=== PATIENT | male | born 1955 | race Caucasian/White ===

== ENCOUNTER → 2021-12-24 | Outpatient (CLI) | payer MEDICARE ==
--- NOTE | 2021-12-24 09:31 | ECHOF ---
Referral Reason:I35.0 nonrheumatic aortic stenosis MEASUREMENTS -------- HEIGHT: 190.5 cm WEIGHT: 90.7 kg BP: RVIDd: 2.8 cm (< 3.3) IVSd: 1.6 cm (0.6 - 1.1) LVIDd: 4.2 cm (3.9 - 5.3) LVPWd: 1.5 cm (0.6 - 1.1) IVSs: 2.1 cm LVIDs: 2.5 cm LVPWs: 2.4 cm LAESV Index (A-L): 31.87 ml/m MV EXCURSION: 25.658 mm (> 18.000) MV EF SLOPE: 52 mm/s (70 - 150) EPSS: 1.0 cm MV E Lg: 0.54 m/s MV DecT: 115 ms MV A Lg: 0.99 m/s MV E/A Ratio: 0.54 AR PHT: 390 ms RAP: 5.00 mmHg RVSP: 30.24 mmHg FINDINGS -------- Sinus rhythm. This was a technically adequate study. The left ventricular size is normal. There is moderate concentric left ventricular hypertrophy. O verall left ventricular systolic function is normal with, an EF between 55 - 60 %. The right ventricle is normal in size. LA is midly dilated 29-33ml/m2. The right atrial size is normal. Interatrial and interventricular septum intact. The aortic valve is trileaflet and appears structurally normal. There is moderate aortic regurgitat ion. There is no evidence of aortic stenosis. Mild mitral annular calcification present. Mild mitral regurgitation is present. The tricuspid valve appears structurally normal. Mild tricuspid regurgitation present. Right vent ricular systolic pressure is normal at < 35 mmHg. The right ventricular systolic pressure, as measu red by Doppler, is 30.24mmHg. Trace/mild (physiologic) pulmonic regurgitation. The aortic root and ascending aorta are dilated measuring up to (4.8- 5 ) cm. IVC Not well visulized. There is no pericardial effusion. CONCLUSIONS -------- 1. There is moderate concentric left ventricular hypertrophy. 2. Overall left ventricular systolic function is normal with, an EF between 55 - 60 %. 3. LA is midly dilated 29-33ml/m2. 4. There is moderate aortic regurgitation. 5. Mild mitral regurgitation is present. 6. Mild tricuspid regurgitation present. 7. Trace/mild (physiologic) pulmonic regurgitation. 8. The aortic root and ascending aorta are dilated measuring up to (4.8- 5 ) cm. 9. There is no pericardial effusion. SALES [employer]: Lucila Hills RDCS
== END | disposition home or self-care (01) ==
LOC: RADECHMAIN 08:20
PROVIDERS: ATTEND Internal Medicine Geriatric Medicine
DX: I08.8 Other rheumatic multiple valve diseases (principal)
CPT/HCPCS: 93306

== ENCOUNTER → 2023-10-25 | Outpatient (CLI) | payer MEDICARE ==
--- NOTE | 2023-10-26 07:13 | US ---
EXAMINATION TYPE: US kidneys/renal and bladder DATE OF EXAM: 10/25/2023 COMPARISON: CT 01/17/2015 CLINICAL INDICATION: Male, 67 years old with history of N18.30 CHRONIC KIDNEY DISEASE, STAGE 3 UNSPEC IFIED; Chronic kidney disease stage 3. Hx Right nephrectomy, hx renal cancer right kidney. EXAM MEASUREMENTS: Right Kidney: Surgically absent Left Kidney: 12.1 x 6.0 x 6.6 cm Right Kidney: Surgically absent Left Kidney: No hydronephrosis or masses seen Bladder: Appears wnl Bilateral Jets seen: Yes IMPRESSION: No significant abnormality seen.
== END | disposition home or self-care (01) ==
LOC: RADUSWWP 16:26
PROVIDERS: ATTEND Internal Medicine Geriatric Medicine
DX: N18.30 Chronic kidney disease, stage 3 unspecified (principal); Z90.5 Acquired absence of kidney; Z85.528 Personal history of other malignant neoplasm of kidney
CPT/HCPCS: 76770

== ENCOUNTER 2024-04-28 11:15 | Emergency (ER) | payer MEDICARE ==
[2024-04-28 11:23] VITALS: RESP 18
--- NOTE | 2024-04-28 11:27 | ED ---
Upper Extremity HPI - General Chief Complaint: Extremity Injury, Upper Stated Complaint: L hand finger swelling Time Seen by Provider: 04/28/24 11:27 Source: patient, RN notes reviewed Mode of arrival: ambulatory Limitations: no limitations - History of Present Illness Initial Comments: This is a 68-year-old male with a history of gout who presents the emergency department chief complaint of right hand third digit edema and pain over the last 3 days. Patient states that he went to [facility] urgent care this morning where an x-ray was completed and they informed him report to the emergency department for further evaluation. Patient denies any ajit injury to the affected finger or previous surgeries. Denies fevers, chills, nausea, vomiting, abdominal pain, weakness, fatigue. He rates his pain at a 3 out of 10, he has not taken any medications for the pain. He has used warm Epsom salt soaks at home. Denies recent antibiotic use. Patient is on allopurinol for gout, and denies recent gout flareup. - Related Data Previous Rx's Medication Instructions Recorded Doxycycline [Vibramycin] 100 mg PO BID #20 capsule 04/28/24 Allergies Allergy/AdvReac Type Severity Reaction Status Date / Time No Known Allergies Allergy Verified 04/28/24 11:17 Review of Systems ROS Statement: Those systems with pertinent positive or pertinent negative responses have been documented in the HPI. ROS Other: All systems not noted in ROS Statement are negative. Past Medical History Past Medical History: Diabetes Mellitus, Hyperlipidemia, Hypertension, Renal Disease History of Any Multi-Drug Resistant Organisms: None Reported Past Surgical History: Adenoidectomy, Heart Catheterization With Stent, Hernia Repair, Tonsillectomy Additional Past Surgical History / Comment(s): kidney removed, Past Psychological History: No Psychological Hx Reported Smoking Status: Never smoker Past Alcohol Use History: None Reported Past Drug Use History: None Reported General Exam Limitations: no limitations General appearance: alert, in no apparent distress Head exam: Present: atraumatic, normocephalic, normal inspection Eye exam: Present: normal appearance, PERRL, EOMI. Absent: scleral icterus, conjunctival injection, periorbital swelling ENT exam: Present: normal exam, mucous membranes moist Neck exam: Present: normal inspection. Absent: tenderness, meningismus, lymphadenopathy Respiratory exam: Present: normal lung sounds bilaterally. Absent: respiratory distress, wheezes, rales, rhonchi, stridor Cardiovascular Exam: Present: regular rate, normal rhythm, normal heart sounds. Absent: systolic murmur, diastolic murmur, rubs, gallop, clicks GI/Abdominal exam: Present: soft, normal bowel sounds. Absent: distended, tenderness, guarding, rebound, rigid Left Forearm Wrist exam: Present: normal inspection, full ROM. Absent: tenderness, swelling Hand Wrist exam: Present: tenderness, swelling (3rd digit). Absent: full ROM (unable to complete flexion of 3rd digit at PIP), laceration, ecchymosis, deformity, crepitus, dislocation, erythema Neuro motor exam: Present: wrist extension intact Vascular: Present: normal capillary refill, radial pulse (2+). Absent: vascular compromise Back exam: Present: normal inspection Neurological exam: Present: alert, oriented X3, CN II-XII intact Psychiatric exam: Present: normal affect, normal mood Skin exam: Present: warm, dry, intact, normal color. Absent: rash Course Vital Signs 04/28/24 04/28/24 11:18 13:00 Temperature 98 F 97.9 F Pulse Rate 69 78 Respiratory 18 18 Rate Blood Pressure 136/52 136/70 O2 Sat by Pulse 97 97 Oximetry Medical Decision Making - Medical Decision Making Was pt. sent in by a medical professional or institution (, AJIT, SPARK PLUG TESTER, urgent care, hospital, or long-term...) When possible be specific @ -Was referred by [facility] urgent care to report to the emergency department for further evaluation of x-ray findings of the left hand. Did you speak to anyone other than the patient for history (EMS, parent, family, police, friend...)? What history was obtained from this source @ -No Did you review nursing and triage notes (agree or disagree)? Why? @ -I reviewed and agree with nursing and triage notes Were old charts reviewed (outside hosp., previous admission, EMS record, old EKG, old radiological studies, urgent care reports/EKG's, long-term records)? Report findings @ -No old charts were reviewed Differential Diagnosis (chest pain, altered mental status, abdominal pain women, abdominal pain men, vaginal bleeding, weakness, fever, dyspnea, syncope, headache, dizziness, GI bleed, back pain, seizure, CVA, palpatations, mental h ealth, musculoskeletal)? @ -Cellulitis, osteomyelitis, finger sprain, fracture of metatarsal, gout, septic arthritis, osteosarcoma, this list is not all inclusive. EKG interpreted by me (3pts min.). @ -None X-rays interpreted by me (1pt min.). @ -X-ray of the left hand and left third digit reveals erosion of the distal portion of the proximal phalanx of the left middle finger. CT interpreted by me (1pt min.). @ -CT of the left hand without contrast reveals soft tissue expansile area at the distal phalanx third digit with some subtle erosion of the proximal middle phalanx. U/S interpreted by me (1pt. min.). @ -None done What testing was considered but not performed or refused? (CT, X-rays, U/S, labs)? Why? @ -Lab such as CBC, CMP and lactate were sent but deferred at this time. Patient's pain is minimal rated a 3 out of 10. Additionally there are no signs of erythema, palmar streaking or abscess noted on the finger. Minimal concern for overt osteomyelitis. Additionally labor specialist recommend that patient receives outpatient oral antibiotics for treatment and follow-up outpatient. What meds were considered but not given or refused? Why? @ -None Did you discuss the management of the patient with other professionals (professionals i.e. , PA, SPARK PLUG TESTER, lab, RT, psych nurse, manager social work, fermentation operator, teacher, chief privacy officer, family caseworker)? Give summary @ -Spoke with city call labor specialist, Dr. Handy, encouraged to the patient's findings on x-ray. It was recommended that patient undergo CT imaging of the hand in addition to started on oral antibiotics, doxycycline, and follow-up outpatient next week with orthopedic hand specialist Dr. suh for further evaluation. Was smoking cessation discussed for >3mins.? @ -No Was critical care preformed (if so, how long)? @ -No Were there social determinants of health that impacted care today? How? (Homelessness, low income, unemployed, alcoholism, drug addiction, tra nsportation, low edu. Level, literacy, decrease access to med. care, half-way, rehab)? @ -No Was there de-escalation of care discussed even if they declined (Discuss DNR or withdrawal of care, Hospice)? DNR status @ -No What co-morbidities impacted this encounter? (DM, HTN, Smoking, COPD, CAD, Cancer, CVA, ARF, Chemo, Hep., AIDS, mental health diagnosis, sleep apnea, morbid obesity)? @ -None Was patient admitted / discharged? Hospital course, mention meds given and route, prescriptions, significant lab abnormalities, going to OR and other pertinent info. @ -68-year-old male with left hand third digit edema and pain. On examination patient's third digit of the left hand noted to be edematous at the PIP, no erythema or palmar streaking. Patient's vital stable upon arrival. Unable to complete full range of motion of the third digit due to swelling. At this time patient will be sent for imaging of the left hand and left third digit for further evaluation and patient is in agreement with this plan. Patient will be discharged home on oral doxycycline and provided with orthopedic hand specialist for further evaluation. All questions answered at bedside and strict return parameters have been discussed with the patient rates verbalized understanding. Recommend that patient contacts referral on Tuesday to schedule appointment as soon as possible. Use Tylenol Motrin at home as needed for symptomatic relief. Case discussed with my attending Dr. Ruff. Undiagnosed new problem with uncertain prognosis? @ -No Drug Therapy requiring intensive monitoring for toxicity (Heparin, Nitro, Insulin, Cardizem)? @ -No Were any procedures done? @ -No Diagnosis/symptom? @ -Left hand third digit metacarpal erosion Acute, or Chronic, or Acute on Chronic? @ -Acute Uncomplicated (without systemic symptoms) or Complicated (systemic symptoms)? @ -Uncomplicated Side effects of treatment? @ -No Exacerbation, Progression, or Severe Exacerbation? @ -No Poses a threat to life or bodily function? How? (Chest pain, USA, IA, pneumonia, PE, COPD, DKA, ARF, appy, cholecystitis, CVA, Diverticulitis, Homicidal, Suicidal, threat to staff... and all critical care pts) @ -No Disposition Clinical Impression: Bone erosion determined by x-ray, Osteomyelitis Disposition: HOME SELF-CARE Condition: Good Instructions (If sedation given, give patient instructions): Osteomyelitis (ED) Additional Instructions: Return to the emergency department if your symptoms worsen or not improved. Complete full course of antibiotics as prescribed. Follow-up outpatient with orthopedic hand specialist on Tuesday or Tuesday of next week for further evaluation. Prescriptions: Doxycycline [Vibramycin] 100 mg PO BID #20 capsule Is patient prescribed a controlled substance at d/c from ED?: No Referrals: Major Sanchez MD [Primary Care Provider] - 1-2 days Crispin Suh DO [Doctor of Osteopathic Medicine] - 1-2 days
--- NOTE | 2024-04-28 12:05 | XR ---
EXAMINATION TYPE: XR finger LT DATE OF EXAM: 04/28/2024 COMPARISON: None HISTORY: Third digit swelling TECHNIQUE: 3 view left middle finger FINDINGS: Soft tissue swelling is over the proximal left digit. There is irregular erosion of the dis perfecto portion proximal phalanx left middle finger. Differential diagnosis can include osteomyelitis and neoplasm. Additional workup is recommended. IMPRESSION: 1. Erosion of the distal portion proximal phalanx left middle finger.
--- NOTE | 2024-04-28 12:07 | XR ---
EXAMINATION TYPE: XR hand complete LT DATE OF EXAM: 04/28/2024 COMPARISON: Left middle finger x-ray same date HISTORY: Pain and swelling third digit TECHNIQUE: 3 view left hand FINDINGS: Erosions of the distal portion proximal phalanx left little finger is again evident. Soft t issue swelling over the site is present. Differential diagnosis includes osteomyelitis and neoplasm. Remaining digits appear intact. More proximal portion of the hand likewise appears normal. Remaining joint spaces and mild diffuse degenerative changes. No acute fractures are identified. Remaining soft tissues appear normal. IMPRESSION: 1. Erosion distal portion proximal phalanx left middle finger. Additional workup is recommended
[2024-04-28 13:02] VITALS: BP 136/70; PULSE 78; TEMP 97.9
--- NOTE | 2024-04-28 13:05 | CT ---
EXAMINATION TYPE: CT hand LT wo con DATE OF EXAM: 04/28/2024 COMPARISON: Plain films HISTORY: LT hand, 3rd digit, swelling, xr with signs of erosion CT DLP: 170.4 mGycm Automated exposure control for dose reduction was used. Contrast: None Technique: Axial images 2 mm thick sections. Reconstructed images in the coronal and sagittal plane a re reviewed on the computer. FINDINGS: Soft tissue density is at the distal portion proximal phalanx third digit. Calcification appears to b e peripheral. This could be an expansile lesion. Some subtle erosion along the proximal portion middl e phalanx is present. Differential could include a septic arthritis. IMPRESSION: 1. SOFT TISSUE EXPANSILE AREA AT THE DISTAL PHALANX THIRD DIGIT. SOME SUBTLE EROSION OF THE PROXIMAL MIDDLE PHALANX COULD SUGGEST SEPTIC ARTHRITIS. NEOPLASM REMAINS WITHIN THE DIFFERENTIAL
== END 2024-04-28 13:21 | disposition home or self-care (01) ==
LOC: EC 11:15
DX: M86.9 Osteomyelitis, unspecified (principal); M85.842 Other specified disorders of bone density and structure, left hand
CPT/HCPCS: 99284

== ENCOUNTER → 2024-06-07 | Outpatient (CLI) | payer MEDICARE ==
--- NOTE | 2024-06-08 15:17 | PE ---
EXAMINATION TYPE: PET CT fusion whole body DATE OF EXAM: 06/07/2024 COMPARISON: CT chest abdomen pelvis 07/24/[address] available. Prior PET/CT: No recent PET/CT available for comparison. There is an old PET/CT dated 01/13/2013 HISTORY: Lymphoma, renal cell TECHNIQUE: Following the intravenous administration of 12.17 mCi of F-18 FDG, whole body images are performed from the skull base to the feet. Images are reviewed on the computer in the coronal, axial , and sagittal planes. Reconstructed rotating images are created on independent workstation and revi ewed on the computer. A localization and attenuation correction CT is performed in conjunction with the PET scan. DLP: 850.25 plus 149.29 mGycm SCAN: Subsequent Blood glucose: 197 mg/dL Average Mediastinum SUV: 3.48 Average Liver SUV: FINDINGS: Head: No suspicious uptake. NECK: No suspicious uptake. There appear to be some intense uptake symmetrically at the vocal cord l evel likely due to phonation during the examination. THORAX: There is intense uptake within the posterior right upper lung field mass. This has an SUV of 7.42. There may be some mild uptake posterior to the right main pulmonary artery, example image 125, SUV 4. 23. Lymph node may be present at this location. ABDOMEN: Liver is somewhat heterogenous. Suspicious focal mass not identified. PELVIS: There is a focal nodule with intense uptake within the mid pelvis just left of midline, image 231, SUV 5.87. Within the subcutaneous tissues posterior to the gluteal musculature there is intense uptake measuring 6.28, image 231. There is an additional small focus of mild uptake within the infer ior subcutaneous gluteal region, image 305, SUV 3.54. There is some focal uptake in the anterior lateral portion of the prostate, image 281, SUV 4.55. Cons ider additional workup of the prostate. Legs: Within the medial distal thigh just anterior to the superficial femoral artery at the obturator canal there is a focus of marked increased uptake with an SUV of 3.09. A metastatic lesion within th e musculature should be considered. This appears hypodense on the localization CT. There is some increased signal within the posterior soft tissues of the right ankle, example image 18 7, SUV 3.04 this may be related to muscular activity being somewhat elongated through the musculature . OSSEOUS STRUCTURES: Within the distal third of the left tibia above the ankle there is intense uptake within the left tibia suspicious for metastatic disease, image 187, SUV 6.64. There are some focal a reas of uptake within the talus on the left image 217, SUV 2 and posterior lateral right talus image 217, CV 1.97. This may be near background and could be related to inflammatory change. Osseous metast asis not excluded. LOCALIZATION CT: Right kidney is absent. Gallstone is present. COMPARISON: Left inguinal hernia containing mesenteric fat is present. IMPRESSION: 1. Lung mass right midlung with uptake suspicious for metastatic disease. 2. Small amount of uptake posterior to the right main pulmonary artery may be a metastatic lymph node . 3. Couple of subcutaneous tissue hyperintense nodules within the left inferior pelvis. Soft tissue me tastasis should be considered. 4. Anterior left hemipelvis soft tissue mesenteric uptake suspicious for metastasis. 5. Possible nodule within the right inferior prostate. Additional prostate workup recommended. 6. Suspected osseous metastasis distal left tibia. Possible osseous metastasis within the bilateral t alus. 7. Cholelithiasis.
== END | disposition home or self-care (01) ==
LOC: RADPETMAIN 11:35
PROVIDERS: ATTEND Orthopaedic Surgery
DX: K80.20 Calculus of gallbladder without cholecystitis without obstruction (principal); R91.8 Other nonspecific abnormal finding of lung field; Z85.528 Personal history of other malignant neoplasm of kidney; Z85.72 Personal history of non-Hodgkin lymphomas
CPT/HCPCS: 78816; A9552

== ENCOUNTER → 2024-07-23 | Outpatient (CLI) | payer MEDICARE ==
--- NOTE | 2024-07-23 13:09 | US ---
EXAMINATION TYPE: US venous doppler duplex LE LT DATE OF EXAM: 07/23/2024 12:38 PM COMPARISON: NONE CLINICAL INDICATION: Male, 68 years old with history of M79.669 PAIN IN UNSPECIFIED LOWER LEG R22.42 LLE; Patient states he has a louise filter. Patient does not take blood thinners. Pain x 1 week. SIDE PERFORMED: Left TECHNIQUE: The lower extremity deep venous system is examined utilizing real time linear array sonog karina with graded compression, doppler sonography and color-flow sonography. VESSELS IMAGED: Common Femoral Vein Deep Femoral Vein Greater Saphenous Vein * Femoral Vein Popliteal Vein Small Saphenous Vein * Proximal Calf Veins (* superficial vessels) Left Leg: *Hypoechoic area seen distal thigh: 7.0 x 3.2 x 2.4 cm. Old hematoma or solid lesion could be within the differential. Follow-up is recommended. Correlate for any prior patient neoplasm, meta stasis is not excluded. No percent evidence of DVT. IMPRESSION: 1. No deep venous thrombosis by ultrasound left lower extremity. 2. Complex hypoechoic area appears to be within the anterior left distal thigh musculature. Solid les ion or resolving hematoma within the differential. Follow-up recommended. [facility], , 07/23/2024 1:07 PM
== END | disposition home or self-care (01) ==
LOC: RADUSWWP 12:18
PROVIDERS: ATTEND Internal Medicine Hematology & Oncology
DX: C85.98 Non-Hodgkin lymphoma, unspecified, lymph nodes of multiple sites (principal); C64.9 Malignant neoplasm of unspecified kidney, except renal pelvis; C79.51 Secondary malignant neoplasm of bone; N18.9 Chronic kidney disease, unspecified; R22.42 Localized swelling, mass and lump, left lower limb

== ENCOUNTER 2024-08-16 15:37 | Inpatient (IN) | payer MEDICARE ==
[2024-08-16] MEDS: SODIUM CHLORIDE 0.9% 1,000 ML IV STA (16:34)
[2024-08-16] MEDS: SODIUM CHLORIDE 0.9% 500 ML 500 ML IV STA (16:34)
[2024-08-16 16:58] LABS: Basophils % (A) 1 %; Eosinophils # (A) 0.1 k/uL (0-0.7); Eosinophils % (A) 1 %; HCT 38.4 % (39.0-53.0); HGB 12.7 gm/dL (13.0-17.5); Lymphocytes % (A) 13 %; MCH 30.4 pg (25.0-35.0); MCV 92.3 fL (80.0-100.0); Mean Platelet Volume 8.3; Monocytes # (A) 0.3 k/uL (0-1.0); Monocytes % (A) 4 %; Neutrophils # (A) 6.2 k/uL (1.3-7.7); Neutrophils % (A) 78 %; Platelet Count 174 k/uL (150-450); RBC 4.16 m/uL (4.30-5.90); WBC 7.9 k/uL (3.8-10.6)
[2024-08-16 17:07] LABS: ALT 48 U/L (4-49); AST 114 U/L (17-59); African American GFR (CKD) 30 (>60 ml/min/1.73 sqM); Alkaline Phosphatase 68 U/L (38-126); Anion Gap 13 mmol/L; Blood Urea Nitrogen 54 mg/dL (9-20); Calcium 8.4 mg/dL (8.4-10.2); Carbon Dioxide 13 mmol/L (22-30); Chloride 115 mmol/L (98-107); Glucose 144 mg/dL (74-99); Non-African American GFR(CKD) 26 (>60 ml/min/1.73 sqM); Potassium 4.2 mmol/L (3.5-5.1); Sodium 141 mmol/L (137-145); Total Bilirubin 0.6 mg/dL (0.2-1.3); Total Protein 6.6 g/dL (6.3-8.2)
--- NOTE | 2024-08-16 18:13 | XR ---
EXAMINATION TYPE: XR chest 2V DATE OF EXAM: 08/16/2024 COMPARISON: 12/01/2012 HISTORY: 68-year-old male with fall last night, pain TECHNIQUE: AP and lateral views FINDINGS: Heart normal size. Mild hyperinflation. Some patchy lingular opacity at the left base. In addition, t here is a 4.3 cm mass at the basilar right lower lobe. IMPRESSION: 1. COPD with a 4.3 cm mass at the basilar right lower lobe. Lung cancer needs to be excluded. 2. Some patchy atelectasis versus early infiltrate at the left base. [facility], , 08/16/2024 6:11 PM
--- NOTE | 2024-08-16 18:20 | XR ---
EXAMINATION TYPE: XR pelvis AP view DATE OF EXAM: 08/16/2024 Comparison: None Clinical History: 68-year-old male with a pain after fall Findings: Osteopenia. The greater trochanter on the right is excluded from view. Mild degenerative spurring of both sites. SI joints appear symmetric and the pubic symphysis appears intact. Limited visualization of the lower left femoral neck due to external rotation of the hip. No obvious displaced fracture see n. Impression: No obvious displaced fracture though the exam is very limited as the lower left femoral neck is obscu red by rotated hip positioning and the right greater trochanter is cut off on the image. [facility], , 08/16/2024 6:17 PM
--- NOTE | 2024-08-16 18:21 | CT ---
EXAMINATION TYPE: CT brain wo con DATE OF EXAM: 08/16/2024 COMPARISON: None HISTORY: 68-year-old male weakness, ams TECHNIQUE: Examination was done in axial plane without intravenous contrast. Coronal and sagittal r econstructions performed. CT DLP: 1243.4 mGycm Automated exposure control for dose reduction was used. FINDINGS: There is no evidence of acute intracranial hemorrhage, acute ischemic changes, mass, mass-effect, or extra-axial fluid collection. There is no effacement of cerebral sulci or basal subarachnoid cister ns. There is no hydrocephalus. There is no midline shift. Brewer-white matter distinction is preserv ed. Mild generalized cerebral volume loss. Right-sided scleral banding. Paranasal sinuses and mastoid air cells are well pneumatized. IMPRESSION: Mild generalized cerebral atrophy. No acute intracranial abnormality seen. [facility], , 08/16/2024 6:19 PM
[2024-08-16] MEDS ORDERED: ONDANSETRON 4 MG/2 ML VIAL IVP PRN (20:03)
[2024-08-16] MEDS ORDERED: NALOXONE 0.4 MG/ML 1 ML VIAL IV PRN (20:03)
--- NOTE | 2024-08-16 20:06 | ED ---
General Adult HPI - General Chief complaint: Weakness Stated complaint: Abn Labs Time Seen by Provider: 08/16/24 16:00 Source: patient, family, RN/, RN notes reviewed, old records reviewed Mode of arrival: wheelchair Limitations: physical limitation - History of Present Illness Initial comments: Is a 68-year-old male who presents emergency department for weakness. Patient fell last night at approximately 9 PM. Was found this morning at approximately 9 AM. Was on the ground that entire time. When he fell he did hit his head and had a goose egg on the top of his head. Presents with his sister after presenting to his oncologist over concern for rhabdomyolysis as well as WU on CKD. Patient has a history of lymphoma as well as renal cancer. He has only 1 kidney after nephrectomy. Received chemo 2 weeks ago. States he lost his balance which caused him to fall. Denies any chest pain, shortness of breath, abdominal pain. Endorses some mild pain on the top of his head. Unknown if he lost consciousness when he fell. Is not on blood thinners. Denies any other obvious injuries. Presents for further evaluation at this time. Did receive a 1 L fluid bolus at his oncology office prior to presentation. - Related Data Home Medications Medication Instructions Recorded Confirmed Atorvastatin [Lipitor] 40 mg PO DAILY 08/16/24 08/16/24 Carboxymethylcellulose Sodium 1 drop BOTH EYES Q2H PRN 08/16/24 08/16/24 [Refresh Tears] Cetirizine HCl [Zyrtec] 10 mg PO DAILY PRN 08/16/24 08/16/24 Dapagliflozin Propanediol [Farxiga] 10 mg PO DAILY 08/16/24 08/16/24 Fenofibrate Nanocrystallized 145 mg PO DAILY 08/16/24 08/16/24 [Fenofibrate] Furosemide [Lasix] 40 mg PO WE 08/16/24 08/16/24 Insulin Glargine,Hum.rec.anlog 35 units SQ DAILY 08/16/24 08/16/24 [Tousebastian Solostar] Latanoprost [Latanoprost 0.005%] 1 drop LEFT EYE HS 08/16/24 08/16/24 Repaglinide [Prandin] 1 mg PO AC-BRKFST 08/16/24 08/16/24 allopurinoL [Zyloprim] 100 mg PO DAILY 08/16/24 08/16/24 amLODIPine BESYLATE/BENAZEPRIL 1 cap PO DAILY 08/16/24 08/16/24 [Lotrel 10-40 mg Capsule] Allergies Allergy/AdvReac Type Severity Reaction Status Date / Time No Known Allergies Allergy Verified 08/16/24 16:49 Review of Systems ROS Statement: Those systems with pertinent positive or pertinent negative responses have been documented in the HPI. Review of Systems: CONST: Denies fever EYES: Denies blurry vision ENT: Denies nasal congestion C/V: Denies Chest pain RESP: Denies shortness of breath GI: Denies abdominal pain : Denies dysuria SKIN: Denies rash. MSK: Denies joint pain. NEURO: Denies headache ROS Other: All systems not noted in ROS Statement are negative. Past Medical History Past Medical History: Cancer, Diabetes Mellitus, Hyperlipidemia, Hypertension, Renal Disease Additional Past Medical History / Comment(s): renal cell carcinoma History of Any Multi-Drug Resistant Organisms: None Reported Past Surgical History: Adenoidectomy, Heart Catheterization With Stent, Hernia Repair, Tonsillectomy Additional Past Surgical History / Comment(s): kidney removed, Past Psychological History: No Psychological Hx Reported Smoking Status: Never smoker Past Alcohol Use History: None Reported Past Drug Use History: None Reported General Exam - General Exam Comments Initial Comments: General: Appears in no acute distress. HEAD: Negative Abdi sign. Negative raccoon eyes. Patient does have a healing hematoma on the superior aspect of his head. EYES: PERRLA, EOMI, conjunctiva normal, no discharge. 3 mm and equal bilaterally. ENT: Hearing grossly intact, normal oropharynx. RESPIRATORY: Clear breath sounds bilaterally. No wheezes, rales, or rhonchi. C/V: Regular rate and rhythm. S1 and S2 auscultated, no edema, peripheral pulses 2+ and intact throughout ABD: Abd is soft, nontender, nondistended EXT: Normal range of motion, no obvious deformity pelvis stable. No tenderness to palpation of the extremities. Cervical, thoracic, lumbar spine tenderness to palpation. SKIN: No rashes or lesions observed on exposed skin. NEURO: Alert and oriented x 4. Cranial nerves II-XII intact. No focal sensory or strength deficits. He has a 15. Limitations: physical limitation Course Vital Signs 08/16/24 08/16/24 15:41 20:36 Temperature 97.6 F 101.7 F H Pulse Rate 84 Respiratory 18 Rate Blood Pressure 107/49 O2 Sat by Pulse 98 Oximetry Medical Decision Making - Medical Decision Making Was pt. sent in by a medical professional or institution ([facility], [facility]CH[facility], urgent care, hospital, or long term...) When possible be specific @ -Sent by oncology office for admission, PT evaluation, treatment for rhabdomyolysis Did you speak to anyone other than the patient for history (EMS, parent, family, police, friend...)? What history was obtained from this source @ -Patient's sister is at bedside and assist with patient's past medical history. Did you review nursing and triage notes (agree or disagree)? Why? @ -I reviewed and agree with nursing and triage notes Were old charts reviewed (outside hosp., previous admission, EMS record, old EKG, old radiological studies, urgent care reports/EKG's, long term records)? Report findings @ -Laboratory studies obtained from earlier today at the oncology office which showed the creatinine kinase above 5000. Differential Diagnosis (chest pain, altered mental status, abdominal pain women, abdominal pain men, vaginal bleeding, weakness, fever, dyspnea, syncope, headache, dizziness, GI bleed, back pain, seizure, CVA, palpatations, mental health, musculoskeletal)? @ -Rhabdomyolysis, WU, UTI, weakness. This is is not all inclusive. EKG interpreted by me (3pts min.). @ -As above X-rays interpreted by me (1pt min.). @ -X-ray showed no obvious acute cardiopulmonary process. Pelvis x-ray shows no obvious acute process. Chest x-ray does show the known right lower lobe pulmonary mass. Patient has findings suggestive of atelectasis at the bases. CT interpreted by me (1pt min.). @ -CT brain revealed no obvious acute intracranial process or injury. U/S interpreted by me (1pt. min.). @ -None done What testing was considered but not performed or refused? (CT, X-rays, U/S, labs)? Why? @ -None What meds were considered but not given or refused? Why? @ -None Did you discuss the management of the patient with other professionals (professionals i.e. AJIT Varela, NAILHEAD P[employer]CHER, lab, RT, psych nurse, social media marketing specialist, inspector fuel hose, teacher, cash management officer, case packer and sealer)? Give summary @ -I spoke with the admitting provider, Dr. Sanchez who accepted the admission. Was smoking cessation discussed for >3mins.? @ -No Was critical care preformed (if so, how long)? @ -No Were there social determinants of health that impacted care today? How? (Homelessness, low income, unemployed, alcoholism, drug addiction, trans portation, low edu. Level, literacy, decrease access to med. care, [facility], rehab)? @ -No Was there de-escalation of care discussed even if they declined (Discuss DNR or withdrawal of care, Hospice)? DNR status @ -No What co-morbidities impacted this encounter? (DM, HTN, Smoking, COPD, CAD, Cancer, CVA, ARF, Chemo, Hep., AIDS, mental health diagnosis, sleep apnea, morbid obesity)? @ -Renal carcinoma, lymphoma Was patient admitted / discharged? Hospital course, mention meds given and route, prescriptions, significant lab abnormalities, going to OR and other pertinent info. @ -Patient presents emergency department for rhabdomyolysis and dehydration with WU. We will obtain CT brain as this is the only evidence of injury in addition to chest x-ray and pelvis x-ray and basic labs. Creatinine kinase was already obtained was elevated over 5000. Will repeat labs to check on kidney function and obtain the imaging. Patient already received a 1 L fluid bolus and will receive an additional 500 cc fluid bolus. Patient will then be placed on maintenance fluids at 130 an hour. He was in agreement this plan. Vitals are within acceptable limits. EKG showed no signs of acute ischemia. Imaging all negative for any acute process. Laboratory studies remain concerning for WU on CKD. I updated the patient. He will be admitted at this time. He was in agreement this plan. I spoke with the admitting provider, Dr. Sanchez who accepted the admission. Nephrology as well as oncology consulted. Physical therapy consulted. Undiagnosed new problem with uncertain prognosis? @ -No Drug Therapy requiring intensive monitoring for toxicity (Heparin, Nitro, Insulin, Cardizem)? @ -No Were any procedures done? @ -No Diagnosis/symptom? @ -Rhabdomyolysis, WU Acute, or Chronic, or Acute on Chronic? @ -Acute Uncomplicated (without systemic symptoms) or Complicated (systemic symptoms)? @ -Complicated Side effects of treatment? @ -No Exacerbation, Progression, or Severe Exacerbation? @ -No Poses a threat to life or bodily function? How? (Chest pain, [place], [place], pneumonia, PE, COPD, DKA, ARF, appy, cholecystitis, CVA, Diverticulitis, Homicidal, Suicidal, threat to staff... and all critical care pts) @ -Yes - Lab Data Result diagrams: 08/16/24 16:33 08/16/24 16:33 Lab Results 08/16/24 08/16/24 Range/Units 16:33 16:33 WBC 7.9 (3.8-10.6) k/uL RBC 4.16 L (4.30-5.90) m/uL Hgb 12.7 L (13.0-17.5) gm/dL Hct 38.4 L (39.0-53.0) % MCV 92.3 (80.0-100.0) fL MCH 30.4 (25.0-35.0) pg MCHC 33.0 (31.0-37.0) g/dL RDW 15.0 (11.5-15.5) % Plt Count 174 (150-450) k/uL MPV 8.3 Neutrophils % 78 % Lymphocytes % 13 % Monocytes % 4 % Eosinophils % 1 % Basophils % 1 % Neutrophils # 6.2 (1.3-7.7) k/uL Lymphocytes # 1.0 (1.0-4.8) k/uL Monocytes # 0.3 (0-1.0) k/uL Eosinophils # 0.1 (0-0.7) k/uL Basophils # 0.0 (0-0.2) k/uL Sodium 141 (137-145) mmol/L Potassium 4.2 (3.5-5.1) mmol/L Chloride 115 H (98-107) mmol/L Carbon Dioxide 13 L (22-30) mmol/L Anion Gap 13 mmol/L BUN 54 H (9-20) mg/dL Creatinine 2.45 H (0.66-1.25) mg/dL Est GFR (CKD-EPI)AfAm 30 (>60 ml/min/1.73 sqM) Est GFR (CKD-EPI)NonAf 26 (>60 ml/min/1.73 sqM) Glucose 144 H (74-99) mg/dL Calcium 8.4 (8.4-10.2) mg/dL Total Bilirubin 0.6 (0.2-1.3) mg/dL AST 114 H (17-59) U/L ALT 48 (4-49) U/L Alkaline Phosphatase 68 (38-126) U/L Total Protein 6.6 (6.3-8.2) g/dL Albumin 4.0 (3.5-5.0) g/dL - EKG Data -: EKG Interpreted by Me EKG Comments: 12-lead Electrocardiogram Interpretation Note EKG was reviewed and interpreted by myself. 12-lead ECG performed at 1629 is interpreted by me as revealing normal sinus rhythm at a rate of 90 beats per minute. [place] is normal. TN interval is 194 ms, QRS duration is 98 ms, QTc is 429 ms.. There were no ST or T wave abnormalities to suggest myocardial ischemia or injury. R wave progression across the precordium was satisfactory. By my interpretation this EKG is non-diagnostic for acute ischemia. Disposition Clinical Impression: Rhabdomyolysis, WU (acute kidney injury) Disposition: ADMITTED IP TO THIS HOSP Condition: Stable Time of Disposition: 20:00
[2024-08-16 20:25] LABS: Glucose,Whole Blood 161 mg/dL (70-110)
[2024-08-16] MEDS: ACETAMINOPHEN TAB 325 MG TAB PO PRN (20:44)
[2024-08-16] MEDS ORDERED: ARTIFICIAL TEARS-HYPROMELLOSE DROPS 15 ML BTL BOTH EYES PRN (20:46)
[2024-08-16] MEDS ORDERED: LORATADINE 10 MG TAB PO PRN (20:46)
[2024-08-16 20:47] LABS: Appearance,Urine Clear (Clear); Bacteria,Urine Rare /hpf; Bilirubin,Urine Negative (Negative); Blood,Urine Moderate (Negative); Color,Urine Light Yellow; Glucose,Urine (UA) 4+ (Negative); Ketones,Urine Negative (Negative); Leukocyte Esterase,Urine Negative (Negative); Nitrite,Urine Negative (Negative); PH, Urine 5.5 (5.0-8.0); Protein,Urine 1+ (Negative); RBC,Urine <1 /hpf (0-5); Urobilinogen,Urine <2.0 mg/dL (<2.0); WBC,Urine <1 /hpf (0-5)
[2024-08-16] MEDS: ATORVASTATIN 40 MG TAB PO SCH (22:41)
[2024-08-16] MEDS: LATANOPROST 0.005% OPHTH DROPS 2.5 ML BTL LEFT EYE SCH (22:41)
[2024-08-17] MEDS: DEXTROSE 5% IN WATER 1,000 ML with SODIUM BICARB (1 MEQ/ML) 150 ML IV SCH (04:06)
[2024-08-17 07:05] LABS: Glucose,Whole Blood 199 mg/dL (70-110)
[2024-08-17] MEDS: REPAGLINIDE 1 MG TAB PO SCH (08:48)
[2024-08-17] MEDS: INSULIN DETEMIR (LEVEMIR) 100 UNIT/ML SYR SQ SCH (08:48)
[2024-08-17] MEDS: FENOFIBRATE 160 MG TAB PO SCH (08:48)
[2024-08-17] MEDS: allopurinoL 100 MG TAB PO SCH (08:48)
[2024-08-17] MEDS: amLODIPine 10 MG TAB PO SCH (08:49)
[2024-08-17 08:55] LABS: ALT 55 U/L (10-49); AST 98 U/L (14-35); Albumin 3.5 g/dL (3.8-4.9); Alkaline Phosphatase 60 U/L (41-126); BUN/Creat Ratio 20.04 Ratio (12.00-20.00); Blood Urea Nitrogen 46.1 mg/dL (9.0-27.0); Calcium 7.3 mg/dL (8.7-10.3); Chloride 113 mmol/L (96-109); Globulin 2.5 g/dL (1.6-3.3); Glucose 186 mg/dL (70-110); Potassium 4.1 mmol/L (3.5-5.5); Sodium 141 mmol/L (135-145); Total Bilirubin 0.3 mg/dL (0.3-1.2)
[2024-08-17] MEDS ORDERED: DAPAGLIFLOZIN PROPANEDIOL 10 MG TABLET PO SCH (09:00)
[2024-08-17 10:13] LABS: Basophils # (A) 0.05 X 10*3/uL (0.00-0.10); Basophils % (A) 0.7 %; Eosinophils # (A) 0.08 X 10*3/uL (0.04-0.35); Eosinophils % (A) 1.2 %; HGB 11.4 g/dL (13.0-17.0); Lymphocytes # (A) 0.89 X 10*3/uL (0.90-5.00); Lymphocytes % (A) 12.9 %; MCH 30.2 pg (27.0-32.0); MCHC 31.7 g/dL (32.0-37.0); MCV 95.2 FL (80.0-97.0); Mean Platelet Volume 11.1 FL (9.5-12.2); Monocytes # (A) 0.43 X 10*3/uL (0.20-1.00); Monocytes % (A) 6.3 %; NRBC Per 100 WBC 0 X 10*3/uL (0.00-0.01); Neutrophils # (A) 5.38 X 10*3/uL (1.80-7.70); Neutrophils % (A) 78.2 %; Platelet Count 137 X 10*3/uL (140-440); RBC 3.78 X 10*6/uL (4.40-5.60); RBC Morphology Normal (Normal); RDW 15.6 % (11.5-14.5); WBC 6.88 X 10*3/uL (4.50-10.00)
--- NOTE | 2024-08-17 10:55 | P.NPCON ---
History of Present Illness - Reason for Consult acute renal failure, chronic renal failure - History of Present Illness Reason for consultation: Acute kidney injury on chronic kidney disease History of present illness: Patient is a 68-year-old male seen in renal consultation for acute kidney injury on chronic kidney disease. Patient has chronic kidney disease stage IIIb/IV with creatinine 2.4 in July 2024. Patient has solitary left kidney. Patient has history of right nephrectomy due to malignancy. Creatinine this admission was 2.5 and is 2.3 today. Patient came to the hospital after he jameson stained a fall at home. Patient states his legs just gave out and he fell. He is not sure if he lost consciousness or not. Patient states he was down for 12 hours when he was found by family member the next morning. CK level was 5250 dated August 16, 2024. Morning CK level is pending. He is currently maintained on bicarb drip running at 130 cc an hour. Patient does have history of diabetes. Also has history of lung cancer. Denies history of coronary artery disease. Denies use of nonsteroidals. Denies gross hematuria or dysuria. Diuretics are held. Bladder scan this morning showed over 700 cc of urine and a Bautista catheter will be placed. Vital signs are stable. General: No acute distress. HEENT: Head exam is unremarkable. LUNGS: No audible rhonchi or wheezes. HEART: Rate and Rhythm are regular. ABDOMEN: Nontender. EXTREMITITES: No edema. Past Medical History Past Medical History: Cancer, Diabetes Mellitus, Deep Vein Thrombosis (DVT), Hyperlipidemia, Hypertension, Renal Disease Additional Past Medical History / Comment(s): renal cell carcinoma, DVT in right leg r/t chemo, has louise filter History of Any Multi-Drug Resistant Organisms: None Reported Past Surgical History: Adenoidectomy, Hernia Repair, Tonsillectomy Additional Past Surgical History / Comment(s): cancerous kidney removed [facility] 2014 Past Anesthesia/Blood Transfusion Reactions: No Reported Reaction Past Psychological History: No Psychological Hx Reported Smoking Status: Never smoker Past Alcohol Use History: None Reported Past Drug Use History: None Reported Medications and Allergies Home Medications Medication Instructions Recorded Confirmed Type Atorvastatin [Lipitor] 40 mg PO DAILY 08/16/24 08/16/24 History Carboxymethylcellulose Sodium 1 drop BOTH EYES Q2H PRN 08/16/24 08/16/24 History [Refresh Tears] Cetirizine HCl [Zyrtec] 10 mg PO DAILY PRN 08/16/24 08/16/24 History Dapagliflozin Propanediol [Farxiga] 10 mg PO DAILY 08/16/24 08/16/24 History Fenofibrate Nanocrystallized 145 mg PO DAILY 08/16/24 08/16/24 History [Fenofibrate] Furosemide [Lasix] 40 mg PO WE 08/16/24 08/16/24 History Insulin Glargine,Hum.rec.anlog 35 units SQ DAILY 08/16/24 08/16/24 History [Toujeo Solostar] Latanoprost [Latanoprost 0.005%] 1 drop LEFT EYE HS 08/16/24 08/16/24 History Repaglinide [Prandin] 1 mg PO AC-BRKFST 08/16/24 08/16/24 History allopurinoL [Zyloprim] 100 mg PO DAILY 08/16/24 08/16/24 History amLODIPine BESYLATE/BENAZEPRIL 1 cap PO DAILY 08/16/24 08/16/24 History [Lotrel 10-40 mg Capsule] Allergies Allergy/AdvReac Type Severity Reaction Status Date / Time No Known Allergies Allergy Verified 08/16/24 16:49 Physical Exam Vitals: Vital Signs Temp Pulse Pulse Pulse Resp BP BP 08/17/24 07:06 98.4 F 94 20 149/56 08/17/24 01:35 98 F 104 H 16 162/56 08/16/24 21:57 97.7 F 83 16 144/65 08/16/24 21:07 91 18 141/82 08/16/24 20:41 91 18 141/52 08/16/24 20:36 101.7 F H 08/16/24 15:41 97.6 F 84 18 107/49 Pulse Ox 08/17/24 07:06 95 08/17/24 01:35 94 L 08/16/24 21:57 91 L 08/16/24 21:07 97 08/16/24 20:41 96 08/16/24 20:36 08/16/24 15:41 98 Intake and Output 08/16/24 08/17/24 08/17/24 22:59 06:59 14:59 Output Total 400 Balance -400 Output: Urine 400 Other: # Voids 2 Weight 102.058 kg Results - Lab Results Most recent lab results Calcium 7.3 mg/dL (8.7-10.3) L 08/17/24 04:40 08/17/24 04:40 08/17/24 04:40 Assessment and Plan Plan: Assessment: 1. Acute kidney injury secondary to ATN secondary to rhabdomyolysis and urinary retention. Creatinine was 2.5 on admission and is 2.3 today. 2. Chronic kidney disease stage IIIb/IV with creatinine 2.4 in July 2024. Etiology is solitary kidney and nephrosclerosis. 3. Status post right nephrectomy. 4. Rhabdomyolysis secondary to fall and immobility. 5. Diabetes mellitus. 6. Lung malignancy maintained on chemotherapy outpatient. Also concern for metastatic disease based on PET scan done June 07, 2024. Oncology consulted. 7. Metabolic acidosis secondary to acute kidney injury and IV fluids. 8. Urinary retention. Plan: Maintain bicarb drip. Insert Bautista catheter. Add Flomax. Check renal ultrasound. Follow-up CK level. Avoid nephrotoxins. Continue to monitor renal function and urine output. Thank you for the consultation. I will continue to follow the patient with you during his hospital stay.
[2024-08-17] MEDS: TAMSULOSIN 0.4 MG CAP.ER.24H PO SCH (12:00)
[2024-08-17 12:09] LABS: Glucose,Whole Blood 234 mg/dL (70-110)
--- NOTE | 2024-08-17 13:11 | US ---
EXAMINATION TYPE: US kidneys/renal and bladder DATE OF EXAM: 08/17/2024 COMPARISON: US 2022 CLINICAL INDICATION: Male, 68 years old with history of jose antonio; TECHNIQUE: Grayscale and color Doppler imaging of the bilateral kidneys and urinary bladder: FINDINGS: EXAM MEASUREMENTS: Left Kidney: 11.7 x 6.2 x 5.0 cm Right Kidney: surgically absent Left Kidney: No hydronephrosis or masses seen Bladder: not distended, stevenson catheter There is no evidence for hydronephrosis at this point in time. No nephrolithiasis is seen. No severiano s are identified. The urinary bladder is anechoic. Bilateral ureteral jets are seen. IMPRESSION: Right-sided nephrectomy change. [facility], , 08/17/2024 1:09 PM
[2024-08-17] MEDS: INSULIN ASPART (NovoLOG) 100 UNIT/ML VIAL SQ SCH (13:16)
[2024-08-17 17:34] LABS: Glucose,Whole Blood 142 mg/dL (70-110)
--- NOTE | 2024-08-17 19:08 | P.HPIM ---
History of Present Illness H&P Date: 08/16/24 HISTORY OF PRESENT ILLNESS: 68-year-old with active medical history of type 2 diabetes, previous history of coagulopathy with deep venous thrombosis and pulmonary embolism, multiple cancer including skin cancer, lymphoma, and right-sided renal cell carcinoma postresection who also known to have stage III chronic kidney disease have chronic arthralgia, chronic neuropathy, history of gout and hyperlipidemia who also has history of arrhythmia. He was seen and evaluated few months ago for left middle finger growth initially looks like this is a form like gout and that being sent to see Dr. Palma hand specialist who apparently did further more testing and determined this is probably metastatic cancer from most likely the kidney ended up sending patient to see Ortho oncology arrangement for PET scan was done and found finding consistent with metastasis to the right middle lobe along with the left tibia and left middle finger was diagnosed as an advanced stage metastatic renal cell carcinoma the patient is dealing with the consequences and complication of his advanced cancer has been seen oncology and start chemotherapy. The patient has been quite weak and tired he also had multi medical problem he does not drive because they are to be legally blind, has been having more trouble with balance and gait. Apparently his sister will check on him a regular basis found him on the floor of his bathroom after he fell without remembering what happened exactly and was on the floor for over 10 hours she called EMS to help her out to put him in her car and drove him to his oncologist office where was seen and evaluated laboratory tests were done determined he is to be on more kidney failure than expected was sent to the emergency department at the point where was seen his CK was 3673 kidney function is much worse with GFR down to 26. Patient was started on hydration Admit to the hospital will consult nephrology. Testing including CAT scan of the brain was performed which shows mild generalized cerebral atrophy with no acute intracranial hemorrhage, pelvic x-ray showed no obvious displaced fracture through the exam very limited as a lower femoral neck is obscured by rotated hip position and the right greater trochanteric is cut off of the image. Also chest x-ray showed COPD with 4.3 cm mass at the basilar of the right lower lobe which spotted from before with his metastatic renal cell CA. Patient still slightly bit confused and not acting himself still not feeling well not able to ambulate walk or put any pressure REVIEW OF SYSTEMS: CONSTITUTIONAL: Well-developed slightly confused no acute respiratory distress. EYES: No icterus sclerae, no conjunctivitis. EARS, NOSE, MOUTH, THROAT, and FACE: No sore throat, lymphadenopathy, carotid bruits or deformity. RESPIRATORY: Mild shortness of breath CARDIOVASCULAR: No CP, slight palpitation no angina. GASTROINTESTINAL: No Abd pain, nausea no vomiting no diarrhea slight constipation no active GI bleed at this point. GENITOURINARY: Negative for Hematuria or UTI, no kidney stones. Renal cell CA with metastasis no kidney stones or hematuria. INTEGUMENT/BREAST: Generalized arthralgia with muscle and joint pain and mostly problem with the left middle finger and left medial aspect of the tibia on the left side. HEMATOLOGIC/LYMPHATIC: Chronic anemia. MUSCULOSKELTAL: Generalized arthralgia and myalgia NEURLOGICAL: Slight altered mental status with? Of dizziness lightheadedness and fatigue with no motor deficit. BEHAVIORAL/PSYCH: Negative. ENDOCRINE: Negative. PHYSICAL EXAMINATION: General Appearance: Alert, cooperative, no distress, appears stated age. Neck HEENT: Supple, no lymphadenopathy, no thyroid enlargement, no carotid bruits. Lungs: Decreased breath sound bilaterally with fine rhonchi positive expiratory wheezes no crackles. Slight discomfort on the chest wall area. Slight discomfort in the chest wall area. Heart: Regular rate and rhythm, S1, S2 normal, no murmur, rub or gallop. Back: Slight discomfort lumbar spine no sign of bruise. Abdomen: Soft positive bowel sound no organomegaly slight discomfort in the mid lower abdominal region area no rebound or rigidity. Extremities: Left middle finger still have significant swelling as a fusiform also has slight swelling on the medial aspect of the left tibia trace edema with generalized arthralgia. Pulses: 2+ and symmetric. Skin: Skin color, scar tissue of skin cancer in the facial area. Neurologic: Alert oriented with slight confusion cranial nerves II through XII intact, positive generalized weakness positive normal balance and gait. ASSESSMENT AND PLAN: _Acute rhabdomyolysis: Affecting his kidney function causing more acute kidney injury continue hydration watch his symptoms carefully nephrology consultation be done. _Acute kidney injury with creatinine up to 2.3 GFR down to 30 with stage IIIb chronic kidney disease continue hydration watch kidney function carefully. _Stage IV kidney cancer with metastasis has been seen oncology on chemotherapy which will consult oncology at this point hold chemotherapy temporary till he is hydrated and rhabdomyolysis clear. _Chronic kidney disease with stage III AAA has been much worse with his rhabdomyolysis at this point. _Type 2 diabetes: Remain on Prandin 1 mg twice a day, Farxiga 10 mg daily, Toujeo 35 units daily continue Accu-Chek sliding scales coverage will watch symptoms carefully. _Hypertension: Remain on amlodipine/benazepril 10/40 mg a day will titrate dose and add probably smaller dose of hydralazine if needed. _Hyperlipidemia: Remain on atorvastatin 40 mg a day continue medication. _Chronic edema with mild chronic diastolic heart failure, has been on benazepril and furosemide. _Previous history of lymphoma postchemotherapy has been in remission._ _BPH: Watch for any urinary retention started on Flomax. _GI prophylaxis: Patient will be on pantoprazole 40 mg daily. _DVT prophylaxis: Patient can benefit from remain on Lovenox 40 mg daily. CODE STATUS: Full code. Admit patient to the inpatient service for more than 2 night stay. Past Medical History Past Medical History: Cancer, Diabetes Mellitus, Deep Vein Thrombosis (DVT), Hyperlipidemia, Hypertension, Renal Disease Additional Past Medical History / Comment(s): renal cell carcinoma, DVT in right leg r/t chemo, has louise filter History of Any Multi-Drug Resistant Organisms: None Reported Past Surgical History: Adenoidectomy, Hernia Repair, Tonsillectomy Additional Past Surgical History / Comment(s): cancerous kidney removed appox 2014 Past Anesthesia/Blood Transfusion Reactions: No Reported Reaction Past Psychological History: No Psychological Hx Reported Smoking Status: Never smoker Past Alcohol Use History: None Reported Past Drug Use History: None Reported Medications and Allergies Home Medications Medication Instructions Recorded Confirmed Type Atorvastatin [Lipitor] 40 mg PO DAILY 08/16/24 08/16/24 History Carboxymethylcellulose Sodium 1 drop BOTH EYES Q2H PRN 08/16/24 08/16/24 History [Refresh Tears] Cetirizine HCl [Zyrtec] 10 mg PO DAILY PRN 08/16/24 08/16/24 History Dapagliflozin Propanediol [Farxiga] 10 mg PO DAILY 08/16/24 08/16/24 History Fenofibrate Nanocrystallized 145 mg PO DAILY 08/16/24 08/16/24 History [Fenofibrate] Furosemide [Lasix] 40 mg PO WE 08/16/24 08/16/24 History Insulin Glargine,Hum.rec.anlog 35 units SQ DAILY 08/16/24 08/16/24 History [Toujeo Solostar] Latanoprost [Latanoprost 0.005%] 1 drop LEFT EYE HS 08/16/24 08/16/24 History Repaglinide [Prandin] 1 mg PO AC-BRKFST 08/16/24 08/16/24 History allopurinoL [Zyloprim] 100 mg PO DAILY 08/16/24 08/16/24 History amLODIPine BESYLATE/BENAZEPRIL 1 cap PO DAILY 08/16/24 08/16/24 History [Lotrel 10-40 mg Capsule] Allergies Allergy/AdvReac Type Severity Reaction Status Date / Time No Known Allergies Allergy Verified 08/16/24 16:49 Physical Exam Vitals: Vital Signs Temp Pulse Pulse Resp BP BP Pulse Ox 08/16/24 21:57 97.7 F 83 16 144/65 91 L 08/16/24 21:07 91 18 141/82 97 08/16/24 20:41 91 18 141/52 96 08/16/24 20:36 101.7 F H 08/16/24 15:41 97.6 F 84 18 107/49 98 Intake and Output 08/16/24 08/16/24 08/16/24 06:59 14:59 22:59 Other: Weight 102.058 kg Results CBC & Chem 7: 08/17/24 04:40 08/17/24 04:40 Labs: Abnormal Lab Results - Last 24 Hours (Table) 08/16/24 08/16/24 08/16/24 Range/Units 16:33 16:33 19:48 RBC 4.16 L (4.30-5.90) m/uL Hgb 12.7 L (13.0-17.5) gm/dL Hct 38.4 L (39.0-53.0) % Chloride 115 H (98-107) mmol/L Carbon Dioxide 13 L (22-30) mmol/L BUN 54 H (9-20) mg/dL Creatinine 2.45 H (0.66-1.25) mg/dL Glucose 144 H (74-99) mg/dL POC Glucose (mg/dL) (70-110) mg/dL AST 114 H (17-59) U/L Urine Protein 1+ H (Negative) Urine Glucose (UA) 4+ H (Negative) Urine Blood Moderate H (Negative) Urine Bacteria Rare H (None) /hpf 08/16/24 Range/Units 20:24 RBC (4.30-5.90) m/uL Hgb (13.0-17.5) gm/dL Hct (39.0-53.0) % Chloride (98-107) mmol/L Carbon Dioxide (22-30) mmol/L BUN (9-20) mg/dL Creatinine (0.66-1.25) mg/dL Glucose (74-99) mg/dL POC Glucose (mg/dL) 161 H (70-110) mg/dL AST (17-59) U/L Urine Protein (Negative) Urine Glucose (UA) (Negative) Urine Blood (Negative) Urine Bacteria (None) /hpf Thrombosis Risk Factor Assmnt - Choose All That Apply Any of the Below Risk Factors Present?: Yes Each Factor Represents 1 point: Medical pt on bed rest, Obesity (BMI >25), Swollen legs (current) Other Risk Factors: Yes Each Risk Factor Represents 2 Points: Age 61-74 years Each Risk Factor Represents 3 Points: History of DVT/PE Thrombosis Risk Factor Assessment Total Risk Factor Score: 8 Thrombosis Risk Factor Assessment Level: High Risk
[2024-08-17 20:16] LABS: Glucose,Whole Blood 139 mg/dL (70-110)
[2024-08-17] MEDS: NYSTATIN 100,000 UNIT/GM POWD 15 GM TOPICAL SCH (21:23)
[2024-08-17] MEDS ORDERED: hydrALAZINE HCL 25 MG TAB PO PRN (21:31)
--- NOTE | 2024-08-17 21:33 | P.PN ---
Subjective Progress Note Date: 08/17/24 HISTORY OF PRESENT ILLNESS: 68-year-old with active medical history of type 2 diabetes, previous history of coagulopathy with deep venous thrombosis and pulmonary embolism, multiple cancer including skin cancer, lymphoma, and right-sided renal cell carcinoma postresection who also known to have stage III chronic kidney disease have chronic arthralgia, chronic neuropathy, history of gout and hyperlipidemia who also has history of arrhythmia. He was seen and evaluated few months ago for left middle finger growth initially looks like this is a form like gout and that being sent to see Dr. Palma hand specialist who apparently did further more testing and determined this is probably metastatic cancer from most likely the kidney ended up sending patient to see Ortho oncology arrangement for PET scan was done and found finding consistent with metastasis to the right middle lobe along with the left tibia and left middle finger was diagnosed as an advanced stage metastatic renal cell carcinoma the patient is dealing with the consequences and complication of his advanced cancer has been seen oncology and start chemotherapy. The patient has been quite weak and tired he also had multi medical problem he does not drive because they are to be legally blind, has been having more trouble with balance and gait. Apparently his sister will check on him a regular basis found him on the floor of his bathroom after he fell without remembering what happened exactly and was on the floor for over 10 hours she called EMS to help her out to put him in her car and drove him to his oncologist office where was seen and evaluated laboratory tests were done determined he is to be on more kidney failure than expected was sent to the emergency department at the point where was seen his CK was 3673 kidney function is much worse with GFR down to 26. Patient was started on hydration Admit to the hospital will consult nephrology. Testing including CAT scan of the brain was performed which shows mild generalized cerebral atrophy with no acute intracranial hemorrhage, pelvic x-ray showed no obvious displaced fracture through the exam very limited as a lower femoral neck is obscured by rotated hip position and the right greater trochanteric is cut off of the image. Also chest x-ray showed COPD with 4.3 cm mass at the basilar of the right lower lobe which spotted from before w ith his metastatic renal cell CA. Patient still slightly bit confused and not acting himself still not feeling well not able to ambulate walk or put any pressure 08/17/2024: He has done better today CK still at 3673: Creatinine is down to 2.3 with bun of 46 and GFR of 30 continue to watch blood sugar level more carefully, he was seen nephrology and agreed to maintain bicarbonate drip 0 insert Bautista catheter watch urine output and add Flomax for better compliance and less u rinary retention. Renal ultrasound was ordered report as right-sided nephrectomy change with no sign of obstruction. Blood pressure still mildly elevated at 155/55 with the change in medicine currently remain on amlodipine 10, will try to add some hydralazine on demand to keep systolic blood pressure below 140 REVIEW OF SYSTEMS: CONSTITUTIONAL: Well-developed slightly confused no acute respiratory distress. EYES: No icterus sclerae, no conjunctivitis. EARS, NOSE, MOUTH, THROAT, and FACE: No sore throat, lymphadenopathy, carotid bruits or deformity. RESPIRATORY: Mild shortness of breath CARDIOVASCULAR: No CP, slight palpitation no angina. GASTROINTESTINAL: No Abd pain, nausea no vomiting no diarrhea slight constipation no active GI bleed at this point. GENITOURINARY: Negative for Hematuria or UTI, no kidney stones. Renal cell CA with metastasis no kidney stones or hematuria. INTEGUMENT/BREAST: Generalized arthralgia with muscle and joint pain and mostly problem with the left middle finger and left medial aspect of the tibia on the left side. HEMATOLOGIC/LYMPHATIC: Chronic anemia. MUSCULOSKELTAL: Generalized arthralgia and myalgia NEURLOGICAL: Slight altered mental status with? Of dizziness lightheadedness and fatigue with no motor deficit. BEHAVIORAL/PSYCH: Negative. ENDOCRINE: Negative. PHYSICAL EXAMINATION: General Appearance: Alert, cooperative, no distress, appears stated age. Neck HEENT: Supple, no lymphadenopathy, no thyroid enlargement, no carotid bruits. Lungs: Decreased breath sound bilaterally with fine rhonchi positive expiratory wheezes no crackles. Slight discomfort on the chest wall area. Slight discomfort in the chest wall area. Heart: Regular rate and rhythm, S1, S2 normal, no murmur, rub or gallop. Back: Slight discomfort lumbar spine no sign of bruise. Abdomen: Soft positive bowel sound no organomegaly slight discomfort in the mid lower abdominal region area no rebound or rigidity. Extremities: Left middle finger still have significant swelling as a fusiform also has slight swelling on the medial aspect of the left tibia trace edema with generalized arthralgia. Pulses: 2+ and symmetric. Skin: Skin color, scar tissue of skin cancer in the facial area. Neurologic: Alert oriented with slight confusion cranial nerves II through XII intact, positive generalized weakness positive normal balance and gait. ASSESSMENT AND PLAN: _Acute kidney injury with creatinine up to 2.3 GFR down to 30 with stage IIIb chronic kidney disease continue hydration watch kidney function carefully. _Acute rhabdomyolysis: Slight improvement in kidney function since yesterday. Continue hydration _Stage IV kidney cancer with metastasis has been seen oncology on chemotherapy which will consult oncology at this point hold chemotherapy temporary till he is hydrated and rhabdomyolysis clear. _Chronic kidney disease with stage III AAA has been much worse with his rhabdomyolysis at this point. _Type 2 diabetes: Remain on Prandin 1 mg twice a day, Farxiga 10 mg daily, Toujeo 35 units daily continue Accu-Chek sliding scales coverage will watch symptoms carefully. _Hypertension: Remain on amlodipine/benazepril 10/40 mg a day will titrate dose and add probably smaller dose of hydralazine if needed. _Hyperlipidemia: Remain on atorvastatin 40 mg a day continue medication. _Chronic edema with mild chronic diastolic heart failure, has been on benazepril and furosemide. _Previous history of lymphoma postchemotherapy has been in remission._ _BPH: Watch for any urinary retention started on Flomax. Debility: With everything patient is going through he is still having more problem require probably more help with physical therapy and Occupational Therapy and from here patient might benefit from going to subacute rehab. Discussion: Continue hydration, continue bicarbonate drip, continue to watch for any urinary retention, repeat lab tomorrow. Objective - Vital Signs Vital signs: Vital Signs Temp 99.9 F H 08/17/24 14:38 Pulse 99 08/17/24 13:50 Resp 20 08/17/24 13:50 BP 180/55 08/17/24 13:50 Pulse Ox 94 L 08/17/24 13:50 FiO2 Intake & Output 08/17/24 08/17/24 08/18/24 06:59 18:59 06:59 Intake Total 250 Output Total 400 Balance -400 250 Weight 102.058 kg Intake: Oral 250 Output: Urine 400 Other: # Voids 2 1 # Bowel Movements 2 - Labs CBC & Chem 7: 08/17/24 04:40 08/17/24 04:40 Labs: Abnormal Lab Results - Last 24 Hours (Table) 08/16/24 08/16/24 08/17/24 Range/Units 19:48 20:24 04:40 RBC (4.40-5.60) X 10*6/uL Hgb (13.0-17.0) g/dL Hct (39.6-50.0) % MCHC (32.0-37.0) g/dL RDW (11.5-14.5) % Plt Count (140-440) X 10*3/uL Immature Gran # (0.00-0.04) X 10*3/uL Lymphocytes # (0.90-5.00) X 10*3/uL Chloride (96-109) mmol/L Carbon Dioxide (21.6-31.8) mmol/L Anion Gap (4.00-12.00) mmol/L BUN (9.0-27.0) mg/dL Creatinine (0.6-1.5) mg/dL Est GFR (CKD-EPI) (>=60) BUN/Creatinine Ratio (12.00-20.00) Ratio Glucose (70-110) mg/dL POC Glucose (mg/dL) 161 H (70-110) mg/dL Calcium (8.7-10.3) mg/dL AST (14-35) U/L ALT (10-49) U/L Creatine Kinase 3673 A* (35-257) U/L Total Protein (6.2-8.2) g/dL Albumin (3.8-4.9) g/dL Albumin/Globulin Ratio (1.60-3.17) Ratio Urine Protein 1+ H (Negative) Urine Glucose (UA) 4+ H (Negative) Urine Blood Moderate H (Negative) Urine Bacteria Rare H (None) /hpf 08/17/24 08/17/24 08/17/24 Range/Units 04:40 04:40 07:04 RBC 3.78 L (4.40-5.60) X 10*6/uL Hgb 11.4 L (13.0-17.0) g/dL Hct 36.0 L (39.6-50.0) % MCHC 31.7 L (32.0-37.0) g/dL RDW 15.6 H (11.5-14.5) % Plt Count 137 L (140-440) X 10*3/uL Immature Gran # 0.05 H (0.00-0.04) X 10*3/uL Lymphocytes # 0.89 L (0.90-5.00) X 10*3/uL Chloride 113 H (96-109) mmol/L Carbon Dioxide 15.0 L (21.6-31.8) mmol/L Anion Gap 13.00 H (4.00-12.00) mmol/L BUN 46.1 H (9.0-27.0) mg/dL Creatinine 2.3 H (0.6-1.5) mg/dL Est GFR (CKD-EPI) 30 L (>=60) BUN/Creatinine Ratio 20.04 H (12.00-20.00) Ratio Glucose 186 H (70-110) mg/dL POC Glucose (mg/dL) 199 H (70-110) mg/dL Calcium 7.3 L (8.7-10.3) mg/dL AST 98 H (14-35) U/L ALT 55 H (10-49) U/L Creatine Kinase (35-257) U/L Total Protein 6.0 L (6.2-8.2) g/dL Albumin 3.5 L (3.8-4.9) g/dL Albumin/Globulin Ratio 1.40 L (1.60-3.17) Ratio Urine Protein (Negative) Urine Glucose (UA) (Negative) Urine Blood (Negative) Urine Bacteria (None) /hpf 08/17/24 08/17/24 Range/Units 12:07 17:32 RBC (4.40-5.60) X 10*6/uL Hgb (13.0-17.0) g/dL Hct (39.6-50.0) % MCHC (32.0-37.0) g/dL RDW (11.5-14.5) % Plt Count (140-440) X 10*3/uL Immature Gran # (0.00-0.04) X 10*3/uL Lymphocytes # (0.90-5.00) X 10*3/uL Chloride (96-109) mmol/L Carbon Dioxide (21.6-31.8) mmol/L Anion Gap (4.00-12.00) mmol/L BUN (9.0-27.0) mg/dL Creatinine (0.6-1.5) mg/dL Est GFR (CKD-EPI) (>=60) BUN/Creatinine Ratio (12.00-20.00) Ratio Glucose (70-110) mg/dL POC Glucose (mg/dL) 234 H 142 H (70-110) mg/dL Calcium (8.7-10.3) mg/dL AST (14-35) U/L ALT (10-49) U/L Creatine Kinase (35-257) U/L Total Protein (6.2-8.2) g/dL Albumin (3.8-4.9) g/dL Albumin/Globulin Ratio (1.60-3.17) Ratio Urine Protein (Negative) Urine Glucose (UA) (Negative) Urine Blood (Negative) Urine Bacteria (None) /hpf
[2024-08-18 07:10] LABS: Glucose,Whole Blood 101 mg/dL (70-110)
[2024-08-18] MEDS: ENOXAPARIN 40 MG/0.4 ML SYRINGE SQ SCH (08:38)
[2024-08-18] MEDS: PANTOPRAZOLE 40 MG TABLET PO SCH (08:39)
[2024-08-18 09:01] LABS: HCT 32.4 % (39.6-50.0); HGB 10.7 g/dL (13.0-17.0); MCH 30.1 pg (27.0-32.0); MCV 91.3 FL (80.0-97.0); Mean Platelet Volume 11.5 FL (9.5-12.2); NRBC Per 100 WBC 0 X 10*3/uL (0.00-0.01); Platelet Count 100 X 10*3/uL (140-440); RBC 3.55 X 10*6/uL (4.40-5.60); RDW 15.2 % (11.5-14.5); WBC 6.18 X 10*3/uL (4.50-10.00)
[2024-08-18 09:17] LABS: Magnesium 2.3 mg/dL (1.5-2.4)
--- NOTE | 2024-08-18 10:02 | P.CONS ---
History of Present Illness - Reason for Consult Consult date: 08/18/24 Hx [facility] Requesting physician: Conrado Azevedo - Chief Complaint fall, abnormal labs - History of Present Illness Patient is a 68 year old male with a history of Burkitt lymphoma and renal cell carcinoma. He is a patient of Dr. Martinez. 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 Of note,he was diagnosed with right kidney cancer in for which he had a biopsy which confirmed renal cell carcinoma but he did not want to have any further treatment at that time. He had right nephrectomy on 11/25/2014,pathology pT1b clear cell carcinoma. Repeat CT scan of chest/abdomen/pelvis on 01/17/2015 revealed no evidence of malignancy. He did well until May/2024 when he presented with swelling in left middle finger,underwent xray and MRI which showed destructive soft tissue mass involving proximal middle phalanx,he was evaluated by ortho/onc,Dr larkin,had a PET scan on 06/07/2024 which showed suspicious uptake in RML lung mass,small mediastinal node,anterior left hemipelvis soft tissue mesenteric uptake,osseous mets to distal left tibia and bilateral talus. Biopsy of left finger mass on 06/27/2024 at [facility],by Dr Nany Larkin, was positive for metastatic renal cell carcinoma. Patient was started on Opdivo/yervoy and completed cycle 1 on 08/02/24. At clinic f/u on 08/16, pt reports he had a fall last night at home in the bathroom after his sister left for the night. He laid flat for at least 10- 12 hours. Sister found him and called EMS to help him off the floor. Reports having a slight cough, but denies fever and chills. Patient was given 1L fluid bolus in clinic. STAT labs, showed CK 5,250, CMP was still pending and pt was i nstructed to go to the ER for further evaluation CBC showing WBC 6.8, hemoglobin 11.4, platelets 137,000. Creatinine 2.3, GFR 30. BUN 54. Bilirubin 0.3, AST 98, ALT 55, ALP 60. UA negative for UTI. Blood cultures ordered. Patient was noted with Tmax of 101.7, afebrile this morning. Chest x-ray showing COPD with a 4.3 cm mass at the basilar right lower lobe. Some patchy atelectasis versus early infiltrate at the left base. CT brain negative for acute intracranial processes. Nephrology consulted. Sodium bicarb drip started. At today's visit patient is denying pain, dizziness and lightheadedness. Patient is lethargic. Review of Systems 10 point ROS is negative except as stated in the HPI Past Medical History Past Medical History: Cancer, Diabetes Mellitus, Deep Vein Thrombosis (DVT), Hyperlipidemia, Hypertension, Renal Disease Additional Past Medical History / Comment(s): renal cell carcinoma, DVT in right leg r/t chemo, has louise filter History of Any Multi-Drug Resistant Organisms: None Reported Past Surgical History: Adenoidectomy, Hernia Repair, Tonsillectomy Additional Past Surgical History / Comment(s): cancerous kidney removed appox 2014 Past Anesthesia/Blood Transfusion Reactions: No Reported Reaction Past Psychological History: No Psychological Hx Reported Smoking Status: Never smoker Past Alcohol Use History: None Reported Past Drug Use History: None Reported Medications and Allergies Home Medications Medication Instructions Recorded Confirmed Type Atorvastatin [Lipitor] 40 mg PO DAILY 08/16/24 08/16/24 History Carboxymethylcellulose Sodium 1 drop BOTH EYES Q2H PRN 08/16/24 08/16/24 History [Refresh Tears] Cetirizine HCl [Zyrtec] 10 mg PO DAILY PRN 08/16/24 08/16/24 History Dapagliflozin Propanediol [Farxiga] 10 mg PO DAILY 08/16/24 08/16/24 History Fenofibrate Nanocrystallized 145 mg PO DAILY 08/16/24 08/16/24 History [Fenofibrate] Furosemide [Lasix] 40 mg PO WE 08/16/24 08/16/24 History Insulin Glargine,Hum.rec.anlog 35 units SQ DAILY 08/16/24 08/16/24 History [Chavokerlineannie Soladdison] Latanoprost [Latanoprost 0.005%] 1 drop LEFT EYE HS 08/16/24 08/16/24 History Repaglinide [Prandin] 1 mg PO AC-BRKFST 08/16/24 08/16/24 History allopurinoL [Zyloprim] 100 mg PO DAILY 08/16/24 08/16/24 History amLODIPine BESYLATE/BENAZEPRIL 1 cap PO DAILY 08/16/24 08/16/24 History [Lotrel 10-40 mg Capsule] Allergies Allergy/AdvReac Type Severity Reaction Status Date / Time No Known Allergies Allergy Verified 08/16/24 16:49 Physical Exam Vitals: Vital Signs Temp Pulse Pulse Pulse Resp BP BP 08/17/24 14:38 99.9 F H 08/17/24 13:50 100.2 F H 99 20 08/17/24 07:06 98.4 F 94 20 149/56 08/17/24 01:35 98 F 104 H 16 162/56 08/16/24 21:57 97.7 F 83 16 144/65 08/16/24 21:07 91 18 141/82 08/16/24 20:41 91 18 141/52 08/16/24 20:36 101.7 F H BP Pulse Ox 08/17/24 14:38 08/17/24 13:50 180/55 94 L 08/17/24 07:06 95 08/17/24 01:35 94 L 08/16/24 21:57 91 L 08/16/24 21:07 97 08/16/24 20:41 96 08/16/24 20:36 Intake and Output 08/17/24 08/17/24 08/17/24 06:59 14:59 22:59 Output Total 400 Balance -400 Output: Urine 400 Other: # Voids 2 1 # Bowel Movements 2 - Constitutional General appearance: no acute distress - EENT ENT: hearing grossly normal - Respiratory Respiratory: bilateral: CTA - Cardiovascular Rhythm: regular - Gastrointestinal General gastrointestinal: soft, no tenderness - Integumentary Integumentary: no cyanotic, no jaundiced - Neurologic Lethargic - Musculoskeletal Musculoskeletal: generalized weakness Results CBC & Chem 7: 08/18/24 06:48 08/17/24 04:40 Labs: Abnormal Lab Results - Last 24 Hours (Table) 08/16/24 08/16/24 08/16/24 Range/Units 16:33 16:33 19:48 RBC 4.16 L (4.30-5.90) m/uL Hgb 12.7 L (13.0-17.5) gm/dL Hct 38.4 L (39.0-53.0) % MCHC (32.0-37.0) g/dL RDW (11.5-14.5) % Plt Count (140-440) X 10*3/uL Immature Gran # (0.00-0.04) X 10*3/uL Lymphocytes # (0.90-5.00) X 10*3/uL Chloride 115 H (98-107) mmol/L Carbon Dioxide 13 L (22-30) mmol/L Anion Gap (4.00-12.00) mmol/L BUN 54 H (9-20) mg/dL Creatinine 2.45 H (0.66-1.25) mg/dL Est GFR (CKD-EPI) (>=60) BUN/Creatinine Ratio (12.00-20.00) Ratio Glucose 144 H (74-99) mg/dL POC Glucose (mg/dL) (70-110) mg/dL Calcium (8.7-10.3) mg/dL AST 114 H (17-59) U/L ALT (10-49) U/L Total Protein (6.2-8.2) g/dL Albumin (3.8-4.9) g/dL Albumin/Globulin Ratio (1.60-3.17) Ratio Urine Protein 1+ H (Negative) Urine Glucose (UA) 4+ H (Negative) Urine Blood Moderate H (Negative) Urine Bacteria Rare H (None) /hpf 08/16/24 08/17/24 08/17/24 Range/Units 20:24 04:40 04:40 RBC 3.78 L (4.30-5.90) m/uL Hgb 11.4 L (13.0-17.5) gm/dL Hct 36.0 L (39.0-53.0) % MCHC 31.7 L (32.0-37.0) g/dL RDW 15.6 H (11.5-14.5) % Plt Count 137 L (140-440) X 10*3/uL Immature Gran # 0.05 H (0.00-0.04) X 10*3/uL Lymphocytes # 0.89 L (0.90-5.00) X 10*3/uL Chloride 113 H (98-107) mmol/L Carbon Dioxide 15.0 L (22-30) mmol/L Anion Gap 13.00 H (4.00-12.00) mmol/L BUN 46.1 H (9-20) mg/dL Creatinine 2.3 H (0.66-1.25) mg/dL Est GFR (CKD-EPI) 30 L (>=60) BUN/Creatinine Ratio 20.04 H (12.00-20.00) Ratio Glucose 186 H (74-99) mg/dL POC Glucose (mg/dL) 161 H (70-110) mg/dL Calcium 7.3 L (8.7-10.3) mg/dL AST 98 H (17-59) U/L ALT 55 H (10-49) U/L Total Protein 6.0 L (6.2-8.2) g/dL Albumin 3.5 L (3.8-4.9) g/dL Albumin/Globulin Ratio 1.40 L (1.60-3.17) Ratio Urine Protein (Negative) Urine Glucose (UA) (Negative) Urine Blood (Negative) Urine Bacteria (None) /hpf 08/17/24 08/17/24 Range/Units 07:04 12:07 RBC (4.30-5.90) m/uL Hgb (13.0-17.5) gm/dL Hct (39.0-53.0) % MCHC (32.0-37.0) g/dL RDW (11.5-14.5) % Plt Count (140-440) X 10*3/uL Immature Gran # (0.00-0.04) X 10*3/uL Lymphocytes # (0.90-5.00) X 10*3/uL Chloride (98-107) mmol/L Carbon Dioxide (22-30) mmol/L Anion Gap (4.00-12.00) mmol/L BUN (9-20) mg/dL Creatinine (0.66-1.25) mg/dL Est GFR (CKD-EPI) (>=60) BUN/Creatinine Ratio (12.00-20.00) Ratio Glucose (74-99) mg/dL POC Glucose (mg/dL) 199 H 234 H (70-110) mg/dL Calcium (8.7-10.3) mg/dL AST (17-59) U/L ALT (10-49) U/L Total Protein (6.2-8.2) g/dL Albumin (3.8-4.9) g/dL Albumin/Globulin Ratio (1.60-3.17) Ratio Urine Protein (Negative) Urine Glucose (UA) (Negative) Urine Blood (Negative) Urine Bacteria (None) /hpf Chest x-ray: report reviewed CT Scan - head: report reviewed Assessment and Plan (1) Renal cell carcinoma Current Visit: Yes Status: Acute Priority: High Code(s): C64.9 - MALIGNANT NEOPLASM OF UNSP KIDNEY, EXCEPT RENAL PELVIS SNOMED Code(s): 004521051 (2) WU (acute kidney injury) Current Visit: Yes Status: Acute Priority: High Code(s): N17.9 - ACUTE KIDNEY FAILURE, UNSPECIFIED SNOMED Code(s): 14157508 (3) Rhabdomyolysis Current Visit: Yes Status: Acute Priority: High Code(s): M62.82 - RHABDOMYOLYSIS SNOMED Code(s): 346282877 Plan: WU, rhabdomyolysis: Patient had a fall at his home on the bathroom, and laid on the ground for at least 10-12 hours. Sister found him and called EMS to help him off the floor. Reports having a slight cough, but denies fever and chills. Patient was given 1L fluid bolus in clinic. STAT labs showed CK 5,250, CMP was still pending and pt was instructed to go to the ER for further evaluation -CBC showing WBC 6.8, hemoglobin 11.4, platelets 137,000. Creatinine 2.3, GFR 30. BUN 54. Bilirubin 0.3, AST 98, ALT 55, ALP 60. -UA negative for UTI. Blood cultures ordered. Patient was noted with Tmax of 101.7, afebrile this morning. Fever may be reactive, continue to monitor -Chest x-ray showing COPD with a 4.3 cm mass at the basilar right lower lobe. Some patchy atelectasis versus early infiltrate at the left base. CT brain negative for acute intracranial processes. -Nephrology consulted. Sodium bicarb drip started Metastatic RCC: -Oncology history and plan as dictated in HPI -Patient was started on Opdivo/yervoy and completed cycle 1 on 08/02/24. -May need to delay treatment on 08/23 pending course of hospitalization. Clinic f/u scheduled on 08/[address] Michelle David attests: I have performed H&P and developed impression and plan of care for patient, discussed with dictator. I agree with dictated note, documented as a scribe
--- NOTE | 2024-08-18 10:39 | XR ---
EXAMINATION TYPE: XR chest 2V DATE OF EXAM: 08/18/2024 COMPARISON: 08/16/2024 HISTORY: Fever and cough TECHNIQUE: Frontal and lateral views of the chest are obtained. FINDINGS: 4.1 cm masslike opacity in the right lower lung zone is again seen is unchanged. It is suspicious for a lung mass and CT thorax is recommended for further evaluation. The left lung is clear. There is no pleural effusion or pneumothorax. Heart and pulmonary vasculature are normal. The osseous structures are intact. IMPRESSION: Stable 4.1 cm masslike opacity in the right lower lung zone suspicious for neoplasm. CT chest recomme nded for further evaluation. IMPRESSION: No acute cardiopulmonary process. [facility], , 08/18/2024 10:37 AM
[2024-08-18 11:00] LABS: BUN/Creat Ratio 17.67 Ratio (12.00-20.00); Blood Urea Nitrogen 37.1 mg/dL (9.0-27.0); Chloride 104 mmol/L (96-109); Creatine Kinase 5085 U/L (35-257); Glucose 107 mg/dL (70-110); Potassium 3.2 mmol/L (3.5-5.5); Sodium 142 mmol/L (135-145)
[2024-08-18 11:01] LABS: ALT 65 U/L (10-49); AST 145 U/L (14-35); Alkaline Phosphatase 56 U/L (41-126); Calcium 6.7 mg/dL (8.7-10.3); Globulin 2.3 g/dL (1.6-3.3); Total Bilirubin 0.3 mg/dL (0.3-1.2); Total Protein 5.3 g/dL (6.2-8.2)
[2024-08-18 11:28] LABS: Glucose,Whole Blood 102 mg/dL (70-110)
[2024-08-18] MEDS ORDERED: ZINC OXIDE PASTE (Z-GUARD) 1 APPLIC TOPICAL PRN (12:12)
[2024-08-18] MEDS: PIPERACILLIN-TAZOBACTAM 3.375 GM in SODIUM CHLORIDE 0.9% 100 ML IVPB SCH (12:48)
[2024-08-18 12:49] LABS: Glucose,Whole Blood 100 mg/dL (70-110)
--- NOTE | 2024-08-18 12:55 | P.PN ---
Subjective Progress Note Date: 08/18/24 Patient seen in follow-up for acute kidney injury on chronic kidney disease. Remains weak per . Vital signs are stable. General: No acute distress. HEENT: Head exam is unremarkable. LUNGS: No audible rhonchi or wheezes. HEART: Rate and Rhythm are regular. ABDOMEN: Nontender. EXTREMITITES: No edema. Objective - Vital Signs Vital signs: Vital Signs Temp 98.1 F 08/18/24 08:48 Pulse 83 08/18/24 07:45 Resp 20 08/18/24 07:45 BP 128/52 08/18/24 07:45 Pulse Ox 93 L 08/18/24 07:45 FiO2 Intake & Output 08/17/24 08/18/24 08/18/24 18:59 06:59 18:59 Intake Total 250 Output Total 1880 Balance 250 -1880 Intake: Oral 250 Output: Urine 1880 Uretheral (Bautista) 940 Other: Voiding Method Indwelling Catheter # Voids 1 # Bowel Movements 2 1 - Labs CBC & Chem 7: 08/18/24 06:48 08/18/24 06:48 Labs: Abnormal Lab Results - Last 24 Hours (Table) 08/17/24 08/17/24 08/17/24 Range/Units 04:40 12:07 17:32 RBC (4.40-5.60) X 10*6/uL Hgb (13.0-17.0) g/dL Hct (39.6-50.0) % RDW (11.5-14.5) % Plt Count (140-440) X 10*3/uL POC Glucose (mg/dL) 234 H 142 H (70-110) mg/dL Creatine Kinase 3673 A* (35-257) U/L 08/17/24 08/18/24 Range/Units 20:12 06:48 RBC 3.55 L (4.40-5.60) X 10*6/uL Hgb 10.7 L (13.0-17.0) g/dL Hct 32.4 L (39.6-50.0) % RDW 15.2 H (11.5-14.5) % Plt Count 100 L (140-440) X 10*3/uL POC Glucose (mg/dL) 139 H (70-110) mg/dL Creatine Kinase (35-257) U/L Microbiology - Last 24 Hours (Table) 08/17/24 00:00 Blood Culture - Preliminary Blood Assessment and Plan Assessment: 1. Chronic kidney disease stage IV with baseline creatinine 2.1-2.4. Etiology is solitary kidney and nephrosclerosis. Renal US no hydronephrosis. 2. Status post right nephrectomy. 3. Rhabdomyolysis secondary to fall and immobility. CK 3673-->5085 4. Diabetes mellitus. 5. Lung malignancy maintained on chemotherapy outpatient. Also concern for metastatic disease based on PET scan done June 07, 2024. Oncology consulted. 6. Metabolic acidosis secondary to acute kidney injury and IV fluids. 7. Urinary retention. Plan: Discontineu bicarb drip, start normal saline at 125 cc/hr as CPK worsening Maintain Bautista catheter and Flomax. Replace potassium Avoid nephrotoxins. Continue to monitor renal function and urine output.
[2024-08-18] MEDS: POTASSIUM CHLORIDE ER 20 MEQ TAB.ER PO STA (13:03)
[2024-08-18] MEDS: SODIUM CHLORIDE 0.9% 1,000 ML IV SCH (13:04)
[2024-08-18 15:17] LABS: Glucose,Whole Blood 73 mg/dL (70-110)
[2024-08-18 15:56] LABS: Glucose,Whole Blood 104 mg/dL (70-110)
[2024-08-18 17:27] LABS: Glucose,Whole Blood 98 mg/dL (70-110)
--- NOTE | 2024-08-18 17:39 | P.PN ---
Subjective Progress Note Date: 08/18/24 HISTORY OF PRESENT ILLNESS: 68-year-old with active medical history of type 2 diabetes, previous history of coagulopathy with deep venous thrombosis and pulmonary embolism, multiple cancer including skin cancer, lymphoma, and right-sided renal cell carcinoma postresection who also known to have stage III chronic kidney disease have chronic arthralgia, chronic neuropathy, history of gout and hyperlipidemia who also has history of arrhythmia. He was seen and evaluated few months ago for left middle finger growth initially looks like this is a form like gout and that being sent to see Dr. Palma hand specialist who apparently did further more testing and determined this is probably metastatic cancer from most likely the kidney ended up sending patient to see Ortho oncology arrangement for PET scan was done and found finding consistent with metastasis to the right middle lobe along with the left tibia and left middle finger was diagnosed as an advanced stage metastatic renal cell carcinoma the patient is dealing with the consequences and complication of his advanced cancer has been seen oncology and start chemotherapy. The patient has been quite weak and tired he also had multi medical problem he does not drive because they are to be legally blind, has been having more trouble with balance and gait. Apparently his sister will check on him a regular basis found him on the floor of his bathroom after he fell without remembering what happened exactly and was on the floor for over 10 hours she called EMS to help her out to put him in her car and drove him to his oncologist office where was seen and evaluated laboratory tests were done determined he is to be on more kidney failure than expected was sent to the emergency department at the point where was seen his CK was 3673 kidney function is much worse with GFR down to 26. Patient was started on hydration Admit to the hospital will consult nephrology. Testing including CAT scan of the brain was performed which shows mild generalized cerebral atrophy with no acute intracranial hemorrhage, pelvic x-ray showed no obvious displaced fracture through the exam very limited as a lower femoral neck is obscured by rotated hip position and the right greater trochanteric is cut off of the image. Also chest x-ray showed COPD with 4.3 cm mass at the basilar of the right lower lobe which spotted from before w ith his metastatic renal cell CA. Patient still slightly bit confused and not acting himself still not feeling well not able to ambulate walk or put any pressure 08/17/2024: He has done better today CK still at 3673: Creatinine is down to 2.3 with bun of 46 and GFR of 30 continue to watch blood sugar level more carefully, he was seen nephrology and agreed to maintain bicarbonate drip 0 insert Bautista catheter watch urine output and add Flomax for better compliance and less u rinary retention. Renal ultrasound was ordered report as right-sided nephrectomy change with no sign of obstruction. Blood pressure still mildly elevated at 155/55 with the change in medicine currently remain on amlodipine 10, will try to add some hydralazine on demand to keep systolic blood pressure below 140 08/18/2024: Patient is slightly bit confused, his numbers are slightly better today with his CK little bit higher at 5085 but creatinine down to 2.1 with GFR at 33, low-grade anemia, still having low-grade temperature not a clear etiology UA and chest x-ray are negative so far. This is can be tumor fever without having to find any acute active infection. Mobility significantly decreased patient is almost bedridden require help. Urine output still good currently. Continue aggressive hydration, still seen nephrology, will continue PT OT and patient most likely require to go to subacute rehab. REVIEW OF SYSTEMS: CONSTITUTIONAL: Well-developed slightly confused no acute respiratory distress. EYES: No icterus sclerae, no conjunctivitis. EARS, NOSE, MOUTH, THROAT, and FACE: No sore throat, lymphadenopathy, carotid b ruits or deformity. RESPIRATORY: Mild shortness of breath CARDIOVASCULAR: No CP, slight palpitation no angina. GASTROINTESTINAL: No Abd pain, nausea no vomiting no diarrhea slight constipation no active GI bleed at this point. GENITOURINARY: Negative for Hematuria or UTI, no kidney stones. Renal cell CA with metastasis no kidney stones or hematuria. INTEGUMENT/BREAST: Generalized arthralgia with muscle and joint pain and mostly problem with the left middle finger and left medial aspect of the tibia on the left side. HEMATOLOGIC/LYMPHATIC: Chronic anemia. MUSCULOSKELTAL: Generalized arthralgia and myalgia NEURLOGICAL: Slight altered mental status with? Of dizziness lightheadedness and fatigue with no motor deficit. BEHAVIORAL/PSYCH: Negative. ENDOCRINE: Negative. PHYSICAL EXAMINATION: General Appearance: Alert, cooperative, no distress, appears stated age. Neck HEENT: Supple, no lymphadenopathy, no thyroid enlargement, no carotid bruits. Lungs: Decreased breath sound bilaterally with fine rhonchi positive expiratory wheezes no crackles. Slight discomfort on the chest wall area. Slight discomfort in the chest wall area. Heart: Regular rate and rhythm, S1, S2 normal, no murmur, rub or gallop. Back: Slight discomfort lumbar spine no sign of bruise. Abdomen: Soft positive bowel sound no organomegaly slight discomfort in the mid lower abdominal region area no rebound or rigidity. Extremities: Left middle finger still have significant swelling as a fusiform also has slight swelling on the medial aspect of the left tibia trace edema with generalized arthralgia. Pulses: 2+ and symmetric. Skin: Skin color, scar tissue of skin cancer in the facial area. Neurologic: Alert oriented with slight confusion cranial nerves II through XII intact, positive generalized weakness positive normal balance and gait. ASSESSMENT AND PLAN: _Acute kidney injury slight improving creatinine and GFR compared to his admission, continue hydration. _Acute rhabdomyolysis: With slight increase CK compared to his day of admission still have no impact on the kidney function still on acute hydration his urine is more clear does not show any sign of hematuria from myoglobulin. _Stage IV kidney cancer with metastasis has been seen oncology on chemotherapy which will consult oncology at this point hold chemotherapy temporary till he is hydrated and rhabdomyolysis clear. _Chronic kidney disease with stage III AAA has been much worse with his rhabdomyolysis at this point. _Type 2 diabetes: Remain on Prandin 1 mg twice a day, Farxiga 10 mg daily, Toujeo 35 units daily continue Accu-Chek sliding scales coverage will watch symptoms carefully. Blood sugar has been much better so far in the low 100s. _Hypertension: Remain on amlodipine/benazepril 10/40 mg a day will titrate dose and add probably smaller dose of hydralazine if needed. _Hyperlipidemia: Remain on atorvastatin 40 mg a day continue medication. _Chronic edema with mild chronic diastolic heart failure, has been on benazepril and furosemide. _Previous history of lymphoma postchemotherapy has been in remission._ _BPH: Watch for any urinary retention started on Flomax. Debility: Patient mobility significantly decreased, will consult social media project manager for possible either inpatient rehab or subacute rehab. Discussion: Continue PT OT, still seen nephrology and oncology the patient will probably need to be in the hospital again for the next 24 to 48 hours. Objective - Vital Signs Vital signs: Vital Signs Temp 98.1 F 08/18/24 08:48 Pulse 83 08/18/24 07:45 Resp 20 08/18/24 07:45 BP 128/52 08/18/24 07:45 Pulse Ox 93 L 08/18/24 07:45 FiO2 Intake & Output 08/17/24 08/18/24 08/18/24 18:59 06:59 18:59 Intake Total 250 Output Total 1880 Balance 250 -1880 Intake: Oral 250 Output: Urine 1880 Uretheral (Bautista) 940 Other: Voiding Method Indwelling Catheter # Voids 1 # Bowel Movements 2 1 - Labs CBC & Chem 7: 08/18/24 06:48 08/18/24 06:48 Labs: Abnormal Lab Results - Last 24 Hours (Table) 08/17/24 08/17/24 08/17/24 Range/Units 04:40 04:40 12:07 RBC 3.78 L (4.40-5.60) X 10*6/uL Hgb 11.4 L (13.0-17.0) g/dL Hct 36.0 L (39.6-50.0) % MCHC 31.7 L (32.0-37.0) g/dL RDW 15.6 H (11.5-14.5) % Plt Count 137 L (140-440) X 10*3/uL Immature Gran # 0.05 H (0.00-0.04) X 10*3/uL Lymphocytes # 0.89 L (0.90-5.00) X 10*3/uL POC Glucose (mg/dL) 234 H (70-110) mg/dL Creatine Kinase 3673 A* (35-257) U/L 08/17/24 08/17/24 08/18/24 Range/Units 17:32 20:12 06:48 RBC 3.55 L (4.40-5.60) X 10*6/uL Hgb 10.7 L (13.0-17.0) g/dL Hct 32.4 L (39.6-50.0) % MCHC (32.0-37.0) g/dL RDW 15.2 H (11.5-14.5) % Plt Count 100 L (140-440) X 10*3/uL Immature Gran # (0.00-0.04) X 10*3/uL Lymphocytes # (0.90-5.00) X 10*3/uL POC Glucose (mg/dL) 142 H 139 H (70-110) mg/dL Creatine Kinase (35-257) U/L Microbiology - Last 24 Hours (Table) 08/17/24 00:00 Blood Culture - Preliminary Blood
[2024-08-18 20:16] LABS: Glucose,Whole Blood 111 mg/dL (70-110)
[2024-08-18 22:52] LABS: Glucose,Whole Blood 81 mg/dL (70-110)
[2024-08-19 00:53] LABS: Glucose,Whole Blood 89 mg/dL (70-110)
[2024-08-19 03:24] LABS: HCT 31.2 % (39.0-53.0); HGB 10.3 gm/dL (13.0-17.5); Hypochromasia Slight; MCH 30.7 pg (25.0-35.0); MCHC 33.1 g/dL (31.0-37.0); MCV 92.8 fL (80.0-100.0); Mean Platelet Volume 9.5; Platelet Count 106 k/uL (150-450); RBC 3.36 m/uL (4.30-5.90); RDW 14.7 % (11.5-15.5); WBC 6.2 k/uL (3.8-10.6)
[2024-08-19 03:50] LABS: Glucose,Whole Blood 79 mg/dL (70-110)
[2024-08-19 03:56] LABS: ALT 86 U/L (4-49); AST 212 U/L (17-59); African American GFR (CKD) 35 (>60 ml/min/1.73 sqM); Albumin 2.6 g/dL (3.5-5.0); Alkaline Phosphatase 80 U/L (38-126); Anion Gap 5 mmol/L; Blood Urea Nitrogen 33 mg/dL (9-20); Carbon Dioxide 25 mmol/L (22-30); Chloride 108 mmol/L (98-107); Globulin 2.6 g/dL; Glucose 81 mg/dL (74-99); Non-African American GFR(CKD) 31 (>60 ml/min/1.73 sqM); Potassium 3.2 mmol/L (3.5-5.1); Sodium 138 mmol/L (137-145); Total Bilirubin 0.6 mg/dL (0.2-1.3); Total Protein 5.2 g/dL (6.3-8.2)
[2024-08-19 04:44] LABS: Calcium 6.3 mg/dL (8.4-10.2)
[2024-08-19 07:25] LABS: Glucose,Whole Blood 81 mg/dL (70-110)
[2024-08-19] MEDS: CALCIUM GLUCONATE IN NACL 2 GM in SALINE 1 100ML.BAG IVPB ONE (09:53)
--- NOTE | 2024-08-19 11:35 | P.PN ---
Subjective Progress Note Date: 08/19/24 Patient seen in follow-up for acute kidney injury on chronic kidney disease. Remains weak and not feeling well. Vital signs are stable. General: No acute distress. HEENT: Head exam is unremarkable. LUNGS: No audible rhonchi or wheezes. HEART: Rate and Rhythm are regular. ABDOMEN: Nontender. EXTREMITITES: No edema. Objective - Vital Signs Vital signs: Vital Signs Temp 102.8 F H 08/19/24 07:51 Pulse 110 H 08/19/24 07:51 Resp 19 08/19/24 07:51 BP 153/61 08/19/24 07:51 Pulse Ox 94 L 08/19/24 07:51 FiO2 Intake & Output 08/18/24 08/19/24 08/19/24 18:59 06:59 18:59 Intake Total 1920 240 Output Total 900 550 Balance 1020 -550 240 Intake: Intake, IV Titration 1560 Amount Sodium Chloride 0.9% 1, 1560 000 ml @ 130 mls/hr IV . Q7H42M [facility] Rx#:[id number] Oral 360 240 Output: Urine 900 550 Other: Voiding Method Indwelling Catheter # Bowel Movements 1 1 - Labs CBC & Chem 7: 08/19/24 01:00 08/19/24 01:00 Labs: Abnormal Lab Results - Last 24 Hours (Table) 08/18/24 08/18/24 08/19/24 Range/Units 06:48 20:10 01:00 RBC 3.36 L (4.30-5.90) m/uL Hgb 10.3 L (13.0-17.5) gm/dL Hct 31.2 L (39.0-53.0) % Plt Count 106 L (150-450) k/uL Potassium 3.2 L (3.5-5.5) mmol/L Chloride (98-107) mmol/L BUN 37.1 H (9.0-27.0) mg/dL Creatinine 2.1 H (0.6-1.5) mg/dL Est GFR (CKD-EPI) 33 L (>=60) POC Glucose (mg/dL) 111 H (70-110) mg/dL Calcium 6.7 L (8.7-10.3) mg/dL AST 145 H (14-35) U/L ALT 65 H (10-49) U/L Creatine Kinase 5085 A* (35-257) U/L Total Protein 5.3 L (6.2-8.2) g/dL Albumin 3.0 L (3.8-4.9) g/dL Albumin/Globulin Ratio 1.30 L (1.60-3.17) Ratio 08/19/24 Range/Units 01:00 RBC (4.30-5.90) m/uL Hgb (13.0-17.5) gm/dL Hct (39.0-53.0) % Plt Count (150-450) k/uL Potassium 3.2 L (3.5-5.5) mmol/L Chloride 108 H (98-107) mmol/L BUN 33 H (9.0-27.0) mg/dL Creatinine 2.12 H (0.6-1.5) mg/dL Est GFR (CKD-EPI) (>=60) POC Glucose (mg/dL) (70-110) mg/dL Calcium 6.3 L* (8.7-10.3) mg/dL AST 212 H (14-35) U/L ALT 86 H (10-49) U/L Creatine Kinase (35-257) U/L Total Protein 5.2 L (6.2-8.2) g/dL Albumin 2.6 L (3.8-4.9) g/dL Albumin/Globulin Ratio (1.60-3.17) Ratio Microbiology - Last 24 Hours (Table) 08/17/24 00:00 Blood Culture - Preliminary Blood Assessment and Plan Assessment: 1. Chronic kidney disease stage IV with baseline creatinine 2.1-2.4. Etiology is solitary kidney and nephrosclerosis. Renal US no hydronephrosis. 2. Status post right nephrectomy. 3. Rhabdomyolysis secondary to fall and immobility. CK 3673-->5085 4. Diabetes mellitus. 5. Lung malignancy maintained on chemotherapy outpatient. Also concern for metastatic disease based on PET scan done June 07, 2024. Oncology consulted. 6. Metabolic acidosis secondary to acute kidney injury and IV fluids. 7. Urinary retention. Plan: Off bicarb drip, normal saline at 125 cc/hr Maintain Bautista catheter and Flomax. Replace potassium Avoid nephrotoxins. Continue to monitor renal function and urine output. Daily BMP and CPK
[2024-08-19 12:21] LABS: Glucose,Whole Blood 120 mg/dL (70-110)
--- NOTE | 2024-08-19 14:33 | P.PN ---
Subjective Progress Note Date: 08/19/24 Pt lethargic. Denies pain, no reported complaints. Denies n/v/d. Febrile with temp 102.8 this morning. Continues on Zosyn Objective - Vital Signs Vital signs: Vital Signs Temp 102.8 F H 08/19/24 07:51 Pulse 110 H 08/19/24 07:51 Resp 19 08/19/24 07:51 BP 153/61 08/19/24 07:51 Pulse Ox 94 L 08/19/24 07:51 FiO2 Intake & Output 08/18/24 08/19/24 08/19/24 18:59 06:59 18:59 Intake Total 1920 240 Output Total 900 550 Balance 1020 -550 240 Intake: Intake, IV Titration 1560 Amount Sodium Chloride 0.9% 1, 1560 000 ml @ 130 mls/hr IV . Q7H42M [facility] Rx#:[id number] Oral 360 240 Output: Urine 900 550 Other: Voiding Method Indwelling Catheter # Bowel Movements 1 1 - Constitutional General appearance: Present: no acute distress - EENT Eyes: Present: anicteric sclerae, EOMI ENT: Present: hearing grossly normal - Respiratory Details: breathing is even and unlabored - Cardiovascular Details: skin warm and dry - Gastrointestinal General gastrointestinal: Present: soft. Absent: tenderness - Integumentary Integumentary: Absent: cyanotic - Neurologic Neurologic Comment(s): lethargic - Musculoskeletal Musculoskeletal: Present: generalized weakness - Labs CBC & Chem 7: 08/19/24 01:00 08/19/24 01:00 Labs: Abnormal Lab Results - Last 24 Hours (Table) 08/18/24 08/18/24 08/19/24 Range/Units 06:48 20:10 01:00 RBC 3.36 L (4.30-5.90) m/uL Hgb 10.3 L (13.0-17.5) gm/dL Hct 31.2 L (39.0-53.0) % Plt Count 106 L (150-450) k/uL Potassium 3.2 L (3.5-5.5) mmol/L Chloride (98-107) mmol/L BUN 37.1 H (9.0-27.0) mg/dL Creatinine 2.1 H (0.6-1.5) mg/dL Est GFR (CKD-EPI) 33 L (>=60) POC Glucose (mg/dL) 111 H (70-110) mg/dL Calcium 6.7 L (8.7-10.3) mg/dL AST 145 H (14-35) U/L ALT 65 H (10-49) U/L Creatine Kinase 5085 A* (35-257) U/L Total Protein 5.3 L (6.2-8.2) g/dL Albumin 3.0 L (3.8-4.9) g/dL Albumin/Globulin Ratio 1.30 L (1.60-3.17) Ratio 08/19/24 Range/Units 01:00 RBC (4.30-5.90) m/uL Hgb (13.0-17.5) gm/dL Hct (39.0-53.0) % Plt Count (150-450) k/uL Potassium 3.2 L (3.5-5.5) mmol/L Chloride 108 H (98-107) mmol/L BUN 33 H (9.0-27.0) mg/dL Creatinine 2.12 H (0.6-1.5) mg/dL Est GFR (CKD-EPI) (>=60) POC Glucose (mg/dL) (70-110) mg/dL Calcium 6.3 L* (8.7-10.3) mg/dL AST 212 H (14-35) U/L ALT 86 H (10-49) U/L Creatine Kinase (35-257) U/L Total Protein 5.2 L (6.2-8.2) g/dL Albumin 2.6 L (3.8-4.9) g/dL Albumin/Globulin Ratio (1.60-3.17) Ratio Microbiology - Last 24 Hours (Table) 08/17/24 00:00 Blood Culture - Preliminary Blood - Imaging and Cardiology Chest x-ray: report reviewed Assessment and Plan (1) Renal cell carcinoma Current Visit: Yes Status: Acute Priority: High Code(s): C64.9 - MALIGNANT NEOPLASM OF UNSP KIDNEY, EXCEPT RENAL PELVIS SNOMED Code(s): 343235094 (2) WU (acute kidney injury) Current Visit: Yes Status: Acute Priority: High Code(s): N17.9 - ACUTE KIDNEY FAILURE, UNSPECIFIED SNOMED Code(s): 36492031 (3) Rhabdomyolysis Current Visit: Yes Status: Acute Priority: High Code(s): M62.82 - RHABDOMYOLYSIS SNOMED Code(s): 899846645 (4) Fever, unknown origin Current Visit: Yes Status: Acute Priority: High Code(s): R50.9 - FEVER, UNSPECIFIED SNOMED Code(s): 2151505 Plan: WU, rhabdomyolysis, fever: Patient had a fall at his home on the bathroom, and laid on the ground for at least 10-12 hours. Sister found him and called EMS to help him off the floor. Reports having a slight cough, but denies fever and chills. Patient was given 1L fluid bolus in clinic. STAT labs showed CK 5,250, CMP was still pending and pt was instructed to go to the ER for further evaluation -CBC showing WBC 6.8, hemoglobin 11.4, platelets 137,000. Creatinine 2.3, GFR 30. BUN 54. Bilirubin 0.3, AST 98, ALT 55, ALP 60. -UA negative for UTI. Blood culture negative thus far -Chest x-ray showing COPD with a 4.3 cm mass at the basilar right lower lobe. Some patchy atelectasis versus early infiltrate at the left base. CT brain negative for acute intracranial processes. -Nephrology consulted. Sodium bicarb drip started -Fever persisting. Infectious workup ordered. Viral panel negative. Urine culture and repeat blood culture pending. Repeat CXR showing no acute cardiopulmonary processes. Spoke with nursing, unsure if BMs have been loose or watery. Will obtain C-diff testing. Zosyn started. Differential includes tumor fever vs r/t rhabdomyolysis vs infectious. ID consulted Metastatic RCC: -Oncology history and plan as dictated in HPI -Patient was started on Opdivo/yervoy and completed cycle 1 on 08/02/24. -May need to delay treatment on 08/23 pending course of hospitalization. Clinic f/u scheduled on 08/[address] Martinez
[2024-08-19] MEDS: IOPAMIDOL CONTRAST (ORAL USE) VIAL PO PRN (16:27)
[2024-08-19 17:27] LABS: Glucose,Whole Blood 167 mg/dL (70-110)
--- NOTE | 2024-08-19 19:53 | CT ---
EXAMINATION TYPE: CT abdomen pelvis wo con DATE OF EXAM: 08/19/2024 COMPARISON: None INDICATION: Fever and abdominal distention. DLP: 1136.3 mGycm, Automated exposure control for dose reduction was used. CONTRAST: 0 mL of Isovue 300. Study performed with Oral Contrast TECHNIQUE: Axial images were obtained from above the diaphragm to the pubic rami in the axial plane a t 5 mm thick sections. Reconstructed images are reviewed on the computer in the coronal plane. FINDINGS: Limited CT sections are obtained the lung bases. There is a 4.6 cm oval mass in the posterior right lung base. Bibasilar compressive atelectasis is present. Minimal right pleural effusion may be prese nt.. CT ABDOMEN: There is a 1.9 cm rounded mass within the right paracolic gutter. Series 3 image 50. Ther e is a 3.1 x 4.5 cm mesenteric soft tissue density right mid abdomen. Series 3 image 56, series 6 jesse ge [id number] Liver: Normal Spleen: Normal Pancreas: Normal Adrenal glands: The adrenal glands are normal. Gallbladder: Multiple gallstones are present. Kidneys: Right kidney is not identified. By history patient has had a nephrectomy.. Left kidney: No hydronephrosis is present. No cysts are present. No left renal stones are evident. Aorta: Vascular calcification is within the aorta. Inferior vena cava: There is a filter within the inferior cava. CT PELVIS: Fat-containing left inguinal hernia is present. Loops of bowel are unremarkable. Loops of bowel within the abdomen and pelvis are normal. There is a fecal bolus of the rectum. The re are loops of bowel which are incompletely distended or lack oral contrast limiting their evaluatio n. Appendix: Not identified. No adjacent inflammatory changes or dilated tubular structure is evident. Urinary bladder: Urinary bladder is decompressed with Bautista catheter. Free air is within the urinary bladder. Genitourinary structures: Prostate appears normal Osseous structures: There may be a large hypodense expansile area within the sacral canal extending i nto the right sided foramen of S1-2. Tarlov cyst is present in the differential. Metastatic disease e ntirely excluded. No additional suspicious lytic or sclerotic lesions evident. IMPRESSION: 1. There are multiple soft tissue densities within the right abdomen. Metastatic disease should be considered. Additional workup is recommended. 2. Oval density within the posterior right lung base. Consider chest CT for additional workup. Primar y and metastatic disease should be considered. 3. Left inguinal hernia containing mesenteric fat. 4. 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 [facility], Workstation: [facility], 08/19/2024 7:51 PM
[2024-08-19 20:29] LABS: Glucose,Whole Blood 159 mg/dL (70-110)
--- NOTE | 2024-08-19 22:30 | P.PN ---
Subjective Progress Note Date: 08/19/24 HISTORY OF PRESENT ILLNESS: 68-year-old with active medical history of type 2 diabetes, previous history of coagulopathy with deep venous thrombosis and pulmonary embolism, multiple cancer including skin cancer, lymphoma, and right-sided renal cell carcinoma postresection who also known to have stage III chronic kidney disease have chronic arthralgia, chronic neuropathy, history of gout and hyperlipidemia who also has history of arrhythmia. He was seen and evaluated few months ago for left middle finger growth initially looks like this is a form like gout and that being sent to see Dr. Palma hand specialist who apparently did further more testing and determined this is probably metastatic cancer from most likely the kidney ended up sending patient to see Ortho oncology arrangement for PET scan was done and found finding consistent with metastasis to the right middle lobe along with the left tibia and left middle finger was diagnosed as an advanced stage metastatic renal cell carcinoma the patient is dealing with the consequences and complication of his advanced cancer has been seen oncology and start chemotherapy. The patient has been quite weak and tired he also had multi medical problem he does not drive because they are to be legally blind, has been having more trouble with balance and gait. Apparently his sister will check on him a regular basis found him on the floor of his bathroom after he fell without remembering what happened exactly and was on the floor for over 10 hours she called EMS to help her out to put him in her car and drove him to his oncologist office where was seen and evaluated laboratory tests were done determined he is to be on more kidney failure than expected was sent to the emergency department at the point where was seen his CK was 3673 kidney function is much worse with GFR down to 26. Patient was started on hydration Admit to the hospital will consult nephrology. Testing including CAT scan of the brain was performed which shows mild generalized cerebral atrophy with no acute intracranial hemorrhage, pelvic x-ray showed no obvious displaced fracture through the exam very limited as a lower femoral neck is obscured by rotated hip position and the right greater trochanteric is cut off of the image. Also chest x-ray showed COPD with 4.3 cm mass at the basilar of the right lower lobe which spotted from before w ith his metastatic renal cell CA. Patient still slightly bit confused and not acting himself still not feeling well not able to ambulate walk or put any pressure 08/17/2024: He has done better today CK still at 3673: Creatinine is down to 2.3 with bun of 46 and GFR of 30 continue to watch blood sugar level more carefully, he was seen nephrology and agreed to maintain bicarbonate drip 0 insert Bautista catheter watch urine output and add Flomax for better compliance and less u rinary retention. Renal ultrasound was ordered report as right-sided nephrectomy change with no sign of obstruction. Blood pressure still mildly elevated at 155/55 with the change in medicine currently remain on amlodipine 10, will try to add some hydralazine on demand to keep systolic blood pressure below 140 08/18/2024: Patient is slightly bit confused, his numbers are slightly better today with his CK little bit higher at 5085 but creatinine down to 2.1 with GFR at 33, low-grade anemia, still having low-grade temperature not a clear etiology UA and chest x-ray are negative so far. This is can be tumor fever without having to find any acute active infection. Mobility significantly decreased patient is almost bedridden require help. Urine output still good currently. Continue aggressive hydration, still seen nephrology, will continue PT OT and patient most likely require to go to subacute rehab. 08/19/2024: Patient continues to suffer from fever and chills his rhabdomyolysis has improved some kidney function remained the same with GFR 31 patient still seen nephrology potassium is up to 3.2 from yesterday no major change with his h emoglobin. Procalcitonin was done again today and was slightly with elevated patient fever and chills continue Zosyn for now for gram-negative coverage either Zosyn or cefepime will be a good idea will consult infectious disease for possible further workup needed his temperature might be tumor fever mostly more than an infection based specially with the current cancer and metastasis he has. Sadly another possibility for his fever can be obstructive pneumonitis from the tumor exist in the right side of his lung causing problem. Patient is very debilitated not been able to ambulate or walk he is bedridden require further and more help at this point even when he is ready to leave the hospital is probably require either inpatient rehab with sadly if he does he cannot do any chemotherapy or he might go to inpatient rehab which again need to stop his chemotherapy till he is done. REVIEW OF SYSTEMS: CONSTITUTIONAL: Well-developed slightly confused no acute respiratory distress. EYES: No icterus sclerae, no conjunctivitis. EARS, NOSE, MOUTH, THROAT, and FACE: No sore throat, lymphadenopathy, carotid bruits or deformity. RESPIRATORY: Mild shortness of breath CARDIOVASCULAR: No CP, slight palpitation no angina. GASTROINTESTINAL: No Abd pain, nausea no vomiting no diarrhea slight constipation no active GI bleed at this point. GENITOURINARY: Negative for Hematuria or UTI, no kidney stones. Renal cell CA with metastasis no kidney stones or hematuria. INTEGUMENT/BREAST: Generalized arthralgia with muscle and joint pain and mostly problem with the left middle finger and left medial aspect of the tibia on the left side. HEMATOLOGIC/LYMPHATIC: Chronic anemia. MUSCULOSKELTAL: Generalized arthralgia and myalgia NEURLOGICAL: Slight altered mental status with? Of dizziness lightheadedness and fatigue with no motor deficit. BEHAVIORAL/PSYCH: Negative. ENDOCRINE: Negative. PHYSICAL EXAMINATION: General Appearance: Alert, cooperative, no distress, appears stated age. Neck HEENT: Supple, no lymphadenopathy, no thyroid enlargement, no carotid bruits. Lungs: Decreased breath sound bilaterally with fine rhonchi positive expiratory wheezes no crackles. Slight discomfort on the chest wall area. Slight discomfort in the chest wall area. Heart: Regular rate and rhythm, S1, S2 normal, no murmur, rub or gallop. Back: Slight discomfort lumbar spine no sign of bruise. Abdomen: Soft positive bowel sound no organomegaly slight discomfort in the mid lower abdominal region area no rebound or rigidity. Extremities: Left middle finger still have significant swelling as a fusiform also has slight swelling on the medial aspect of the left tibia trace edema with generalized arthralgia. Pulses: 2+ and symmetric. Skin: Skin color, scar tissue of skin cancer in the facial area. Neurologic: Alert oriented with slight confusion cranial nerves II through XII intact, positive generalized weakness positive normal balance and gait. ASSESSMENT AND PLAN: _Acute kidney injury secondary to severe dehydration and rhabdomyolysis, slightly bit better. _Acute rhabdomyolysis: Continue to see nephrology, continue hydration continue to watch kidney function carefully. _Fever and chills: Possibly gram-negative infection, will consult infectious disease, cultures negative so far but procalcitonin is mildly elevated patient was started on Zosyn will continue medication for now would presume this is to b e related to obstructive pneumonitis from the area from his growth. _Stage IV kidney cancer with metastasis has been seen oncology on chemotherapy which will consult oncology at this point hold chemotherapy temporary till he is hydrated and rhabdomyolysis clear. _Chronic kidney disease with stage III A has been much worse with his rhabdomyolysis at this point. _Type 2 diabetes: Remain on Prandin 1 mg twice a day, Farxiga 10 mg daily, Toujeo 35 units daily continue Accu-Chek sliding scales coverage will watch symptoms carefully. Blood sugar has been much better so far in the low 100s. _Hypertension: Remain on amlodipine/benazepril 10/40 mg a day will titrate dose and add probably smaller dose of hydralazine if needed. _Hyperlipidemia: Remain on atorvastatin 40 mg a day continue medication. _Chronic edema with mild chronic diastolic heart failure, has been on benazepril and furosemide. _Previous history of lymphoma postchemotherapy has been in remission._ _BPH: Watch for any urinary retention started on Flomax. Debility: Patient remained very weak continue to have fever chills continue to have significant decreased mobility and ability to ambulate require more help almost bedridden. Will continue physical therapy occupational therapy continue to see the consultation recommendation by infectious disease and oncology will consult physiatry for possible inpatient rehab. Objective - Vital Signs Vital signs: Vital Signs Temp 102.8 F H 08/19/24 07:51 Pulse 110 H 08/19/24 07:51 Resp 19 08/19/24 07:51 BP 153/61 08/19/24 07:51 Pulse Ox 94 L 08/19/24 07:51 FiO2 Intake & Output 08/18/24 08/19/24 08/19/24 18:59 06:59 18:59 Intake Total 1920 Output Total 900 550 Balance 1020 -550 Intake: Intake, IV Titration 1560 Amount Sodium Chloride 0.9% 1, 1560 000 ml @ 130 mls/hr IV . Q7H42M [facility] Rx#:[id number] Oral 360 Output: Urine 900 550 Other: Voiding Method Indwelling Catheter # Bowel Movements 1 1 - Labs CBC & Chem 7: 08/19/24 01:00 08/19/24 01:00 Labs: Abnormal Lab Results - Last 24 Hours (Table) 08/18/24 08/18/24 08/19/24 Range/Units 06:48 20:10 01:00 RBC 3.36 L (4.30-5.90) m/uL Hgb 10.3 L (13.0-17.5) gm/dL Hct 31.2 L (39.0-53.0) % Plt Count 106 L (150-450) k/uL Potassium 3.2 L (3.5-5.5) mmol/L Chloride (98-107) mmol/L BUN 37.1 H (9.0-27.0) mg/dL Creatinine 2.1 H (0.6-1.5) mg/dL Est GFR (CKD-EPI) 33 L (>=60) POC Glucose (mg/dL) 111 H (70-110) mg/dL Calcium 6.7 L (8.7-10.3) mg/dL AST 145 H (14-35) U/L ALT 65 H (10-49) U/L Creatine Kinase 5085 A* (35-257) U/L Total Protein 5.3 L (6.2-8.2) g/dL Albumin 3.0 L (3.8-4.9) g/dL Albumin/Globulin Ratio 1.30 L (1.60-3.17) Ratio 08/19/24 Range/Units 01:00 RBC (4.30-5.90) m/uL Hgb (13.0-17.5) gm/dL Hct (39.0-53.0) % Plt Count (150-450) k/uL Potassium 3.2 L (3.5-5.5) mmol/L Chloride 108 H (98-107) mmol/L BUN 33 H (9.0-27.0) mg/dL Creatinine 2.12 H (0.6-1.5) mg/dL Est GFR (CKD-EPI) (>=60) POC Glucose (mg/dL) (70-110) mg/dL Calcium 6.3 L* (8.7-10.3) mg/dL AST 212 H (14-35) U/L ALT 86 H (10-49) U/L Creatine Kinase (35-257) U/L Total Protein 5.2 L (6.2-8.2) g/dL Albumin 2.6 L (3.8-4.9) g/dL Albumin/Globulin Ratio (1.60-3.17) Ratio Microbiology - Last 24 Hours (Table) 08/17/24 00:00 Blood Culture - Preliminary Blood
--- NOTE | 2024-08-19 23:42 | P.CONS ---
History of Present Illness - Reason for Consult Consult date: 08/19/24 Fever?? Infection Requesting physician: Major Sanchez - Chief Complaint Feeling cold x few days - History of Present Illness Patient is a 68-year-old male with a past medical history significant for diabetes mellitus hypertension hyperlipidemia DVT renal cell carcinoma with a last chemo about 2 weeks before presentation to the hospital, in this patient presented to hospital 3 days ago for evaluation of weakness in this patient symptom has been going on for about a day before presentation to the hospital and apparently the patient was found to be on the ground and the patient mention that he lost his balance which caused him to fall did not have any head trauma or loss of consciousness patient on presentation to the hospital did have a temperature of 101.7 degrees for the right and the patient has been spiking a fever of 103 F to 102 F for the last 3 days, infectious disease was consulted regarding the fever and a question of possible infection, however not specifically the patient has been complaining of feeling weak and feeling cold he denies having any headache or URI symptoms denies having any chest pain shortness with he did have some cough but not bringing up any sputum denies any nausea or vomiting no abdominal pain apparently did have some diarrhea stool for C. difficile has been negative and the patient has been eating without choking on the food, patient did have a normal white count with some immature cells seen on the CBC patient did have a elevated BUN and creatinine lactic acid has been normal at 1.2 liver enzymes are mildly elevated he did have elevated procalcitonin 1.02 urine has been negative influenza RSV COVID testing has been negative patient has been empirically treated with Zosyn he did have a chest x- ray on admission COPD with a 4.3 cm mass at the basilar right lower lobe lung cancer needs to be excluded with repeat chest x-ray yesterday morning no acute cardiopulmonary disease process Review of Systems Positive point and negatives has been mentioned in the HPI, complete review of systems was performed and all other systems are negative Past Medical History Past Medical History: Cancer, Diabetes Mellitus, Deep Vein Thrombosis (DVT), Hyperlipidemia, Hypertension, Renal Disease Additional Past Medical History / Comment(s): renal cell carcinoma, DVT in right leg r/t chemo, has louise filter History of Any Multi-Drug Resistant Organisms: None Reported Past Surgical History: Adenoidectomy, Hernia Repair, Tonsillectomy Additional Past Surgical History / Comment(s): cancerous kidney removed appox 2014 Past Anesthesia/Blood Transfusion Reactions: No Reported Reaction Past Psychological History: No Psychological Hx Reported Smoking Status: Never smoker Past Alcohol Use History: None Reported Past Drug Use History: None Reported Medications and Allergies Home Medications Medication Instructions Recorded Confirmed Type Atorvastatin [Lipitor] 40 mg PO DAILY 08/16/24 08/16/24 History Carboxymethylcellulose Sodium 1 drop BOTH EYES Q2H PRN 08/16/24 08/16/24 History [Refresh Tears] Cetirizine HCl [Zyrtec] 10 mg PO DAILY PRN 08/16/24 08/16/24 History Dapagliflozin Propanediol [Farxiga] 10 mg PO DAILY 08/16/24 08/16/24 History Fenofibrate Nanocrystallized 145 mg PO DAILY 08/16/24 08/16/24 History [Fenofibrate] Furosemide [Lasix] 40 mg PO WE 08/16/24 08/16/24 History Insulin Glargine,Hum.rec.anlog 35 units SQ DAILY 08/16/24 08/16/24 History [Toujeo Solostar] Latanoprost [Latanoprost 0.005%] 1 drop LEFT EYE HS 08/16/24 08/16/24 History Repaglinide [Prandin] 1 mg PO AC-BRKFST 08/16/24 08/16/24 History allopurinoL [Zyloprim] 100 mg PO DAILY 08/16/24 08/16/24 History amLODIPine BESYLATE/BENAZEPRIL 1 cap PO DAILY 08/16/24 08/16/24 History [Lotrel 10-40 mg Capsule] Allergies Allergy/AdvReac Type Severity Reaction Status Date / Time No Known Allergies Allergy Verified 08/16/24 16:49 Physical Exam Vitals: Vital Signs Temp Pulse Resp BP BP Pulse Ox 08/19/24 13:34 98.5 F 77 18 148/55 96 08/19/24 12:25 98.8 F 08/19/24 10:59 101.1 F H 08/19/24 07:51 102.8 F H 110 H 19 153/61 94 L 08/19/24 01:05 100.5 F H 88 22 107/57 92 L 08/19/24 01:00 100.5 F H 88 22 107/57 92 L 08/19/24 00:03 100.9 F H 08/18/24 21:12 102.8 F H 08/18/24 20:00 101.1 F H 106 H 20 134/64 91 L Intake and Output 08/18/24 08/19/24 08/19/24 22:59 06:59 14:59 Intake Total 1920 240 Output Total 900 550 Balance 1020 -550 240 Intake: Intake, IV Titration 1560 Amount Sodium Chloride 0.9% 1, 1560 000 ml @ 130 mls/hr IV . Q7H42M [facility] Rx#:[id number] Oral 360 240 Output: Urine 900 550 Other: Voiding Method Indwelling Catheter # Bowel Movements 1 1 GENERAL DESCRIPTION: Elderly d male lying in bed, no distress. No tachypnea or accessory muscle of respiration use. HEENT: Shows Pallor , no scleral icterus. Oral mucous membrane is dry. No pharyngeal erythema or thrush NECK: Trachea central, no thyromegaly. LUNGS: Unlabored breathing. Clear to auscultation anteriorly. No wheeze or crackle. HEART: S1, S2, regular rate and rhythm. No loud murmur ABDOMEN: Soft, mild distention and tenderness EXTREMITIES: No edema of feet. SKIN: No rash, no masses palpable. NEUROLOGICAL: The patient is awake, alert, mood and affect normal. Results CBC & Chem 7: 08/19/24 01:00 08/19/24 01:00 Labs: Abnormal Lab Results - Last 24 Hours (Table) 08/18/24 08/19/24 08/19/24 Range/Units 20:10 01:00 01:00 RBC 3.36 L (4.30-5.90) m/uL Hgb 10.3 L (13.0-17.5) gm/dL Hct 31.2 L (39.0-53.0) % Plt Count 106 L (150-450) k/uL Potassium 3.2 L (3.5-5.1) mmol/L Chloride 108 H (98-107) mmol/L BUN 33 H (9-20) mg/dL Creatinine 2.12 H (0.66-1.25) mg/dL POC Glucose (mg/dL) 111 H (70-110) mg/dL Calcium 6.3 L* (8.4-10.2) mg/dL AST 212 H (17-59) U/L ALT 86 H (4-49) U/L Total Protein 5.2 L (6.3-8.2) g/dL Albumin 2.6 L (3.5-5.0) g/dL Procalcitonin (0.02-0.50) ng/mL 08/19/24 08/19/24 Range/Units 01:00 12:19 RBC (4.30-5.90) m/uL Hgb (13.0-17.5) gm/dL Hct (39.0-53.0) % Plt Count (150-450) k/uL Potassium (3.5-5.1) mmol/L Chloride (98-107) mmol/L BUN (9-20) mg/dL Creatinine (0.66-1.25) mg/dL POC Glucose (mg/dL) 120 H (70-110) mg/dL Calcium (8.4-10.2) mg/dL AST (17-59) U/L ALT (4-49) U/L Total Protein (6.3-8.2) g/dL Albumin (3.5-5.0) g/dL Procalcitonin 1.02 H (0.02-0.50) ng/mL Microbiology - Last 24 Hours (Table) 08/17/24 00:00 Blood Culture - Preliminary Blood Assessment and Plan (1) Fever, unknown origin Current Visit: Yes Status: Acute Priority: High Code(s): R50.9 - FEVER, UNSPECIFIED SNOMED Code(s): 1940494 Plan: 1patient with a fever in this patient who did have a history of renal cancer status post nephrectomy and has been on chemotherapy with the last chemo about 2 weeks before presentation to the hospital now with persistent fever patient did have a normal white count does not look toxic however did have a mildly elevated procalcitonin initially chest x-ray shows right lower lobe masslike opacity however repeat chest x-ray done yesterday did not show any acute abnormality with a question of fever related to his underlying malignancy versus possible intra-abdominal source as the patient was noted to be slightly tender on palpation 2-we will obtain a CT abdominal pelvis with oral contrast only to note intra- abdominal pathology, if negative may consider bilateral lower extremity ultrasound 3-continue with Zosyn while awaiting further workup to be completed We will follow on clinical condition and cultures to further adjust medication if needed Thank you for this consultation we will follow the patient along with you Dictation was produced using [employer] dictation software. please excuse any grammatical, word or spelling errors. Time with Patient: Greater than 30
[2024-08-20 01:43] LABS: Glucose,Whole Blood 133 mg/dL (70-110)
[2024-08-20 05:02] LABS: ALT 92 U/L (4-49); AST 149 U/L (17-59); African American GFR (CKD) 43 (>60 ml/min/1.73 sqM); Albumin 2.7 g/dL (3.5-5.0); Alkaline Phosphatase 121 U/L (38-126); Anion Gap 7 mmol/L; Blood Urea Nitrogen 25 mg/dL (9-20); Calcium 6.6 mg/dL (8.4-10.2); Carbon Dioxide 20 mmol/L (22-30); Chloride 111 mmol/L (98-107); Globulin 2.8 g/dL; Glucose 114 mg/dL (74-99); Non-African American GFR(CKD) 37 (>60 ml/min/1.73 sqM); Potassium 3.8 mmol/L (3.5-5.1); Sodium 138 mmol/L (137-145); Total Protein 5.5 g/dL (6.3-8.2)
[2024-08-20 05:08] LABS: HCT 37.6 % (39.0-53.0); HGB 12.2 gm/dL (13.0-17.5); MCH 29.8 pg (25.0-35.0); MCHC 32.4 g/dL (31.0-37.0); Mean Platelet Volume 8.7; Platelet Count 114 k/uL (150-450); RBC 4.09 m/uL (4.30-5.90); RDW 14.7 % (11.5-15.5); WBC 8.9 k/uL (3.8-10.6)
[2024-08-20 05:57] LABS: Creatine Kinase 4300 U/L (55-170)
[2024-08-20 07:24] LABS: Glucose,Whole Blood 141 mg/dL (70-110)
[2024-08-20 12:15] LABS: Glucose,Whole Blood 91 mg/dL (70-110)
[2024-08-20 17:17] LABS: Glucose,Whole Blood 111 mg/dL (70-110)
--- NOTE | 2024-08-20 19:13 | P.PN ---
Subjective Patient is seen for follow-up for acute kidney injury. No significant complaints today. Renal function has improved with serum creatinine down to 1.8 mg/dL. Objective - Vital Signs Vital signs: Vital Signs Temp 98.4 F 08/20/24 12:59 Pulse 91 08/20/24 12:59 Resp 18 08/20/24 12:59 BP 163/69 08/20/24 12:59 Pulse Ox 93 L 08/20/24 12:59 FiO2 Intake & Output 08/20/24 08/20/24 08/21/24 06:59 18:59 06:59 Intake Total 2150 Output Total 1200 600 Balance -1200 1550 Intake: Intake, IV Titration 1610 Amount Piperacillin-Tazobactam 3 50 .375 gm In Sodium Chloride 0.9% 100 ml @ 25 mls/hr IVPB Q8H [facility] Rx#: [id number] Sodium Chloride 0.9% 1, 1560 000 ml @ 130 mls/hr IV . Q7H42M [facility] Rx#:[id number] Oral 540 Output: Urine 1200 600 Uretheral (Bautista) 600 Other: Voiding Method Indwelling Catheter Indwelling Catheter # Bowel Movements 2 2 - Exam Patient is comfortable. No acute distress. Appears euvolemic. Examination of lower extremity shows no evidence of edema. - Labs CBC & Chem 7: 08/20/24 04:33 08/20/24 04:33 Labs: Abnormal Lab Results - Last 24 Hours (Table) 08/19/24 08/20/24 08/20/24 Range/Units 20:27 01:41 04:33 RBC 4.09 L (4.30-5.90) m/uL Hgb 12.2 L (13.0-17.5) gm/dL Hct 37.6 L (39.0-53.0) % Plt Count 114 L (150-450) k/uL Chloride (98-107) mmol/L Carbon Dioxide (22-30) mmol/L BUN (9-20) mg/dL Creatinine (0.66-1.25) mg/dL Glucose (74-99) mg/dL POC Glucose (mg/dL) 159 H 133 H (70-110) mg/dL Calcium (8.4-10.2) mg/dL AST (17-59) U/L ALT (4-49) U/L Creatine Kinase (55-170) U/L Total Protein (6.3-8.2) g/dL Albumin (3.5-5.0) g/dL 08/20/24 08/20/24 08/20/24 Range/Units 04:33 07:18 17:13 RBC (4.30-5.90) m/uL Hgb (13.0-17.5) gm/dL Hct (39.0-53.0) % Plt Count (150-450) k/uL Chloride 111 H (98-107) mmol/L Carbon Dioxide 20 L (22-30) mmol/L BUN 25 H (9-20) mg/dL Creatinine 1.80 H (0.66-1.25) mg/dL Glucose 114 H (74-99) mg/dL POC Glucose (mg/dL) 141 H 111 H (70-110) mg/dL Calcium 6.6 L (8.4-10.2) mg/dL AST 149 H (17-59) U/L ALT 92 H (4-49) U/L Creatine Kinase 4300 H* (55-170) U/L Total Protein 5.5 L (6.3-8.2) g/dL Albumin 2.7 L (3.5-5.0) g/dL Microbiology - Last 24 Hours (Table) 08/19/24 01:13 Blood Culture - Preliminary Blood 08/17/24 00:00 Blood Culture - Preliminary Blood 08/18/24 11:25 Urine Culture - Final Urine,Catheterized Assessment and Plan Assessment: 1. Chronic kidney disease stage IV with baseline creatinine 2.1-2.4. Serum creatinine at 1.8 today. Etiology is solitary kidney and nephrosclerosis. Renal US no hydronephrosis. 2. Status post right nephrectomy. 3. Rhabdomyolysis secondary to fall and immobility. CK 3673-->5085 > 4300 4. Diabetes mellitus. 5. Lung malignancy maintained on chemotherapy outpatient. Also concern for metastatic disease based on PET scan done June 07, 2024. Oncology consulted. 6. Metabolic acidosis secondary to acute kidney injury and IV fluids. 7. Urinary retention. Plan: Continue IV fluids. Repeat labs in a.m.
--- NOTE | 2024-08-20 19:32 | P.PN ---
Subjective Progress Note Date: 08/20/24 Principal diagnosis: Rhabdomylosis after fall. On chemo for metastatic RCC In f/u today patient is drowsy when I am talking to him but, he does arouse and answer questions. He has been having fevers, highest is 103 Fahrenheit. Infectious disease has been consulted. Pending CT abdomen and pelvis. Patient denies any nausea or vomiting, appetite is overall very poor. He states he has had some diarrhea. No other acute complaints at this time. Objective - Vital Signs Vital signs: Vital Signs Temp 98.4 F 08/20/24 12:59 Pulse 91 08/20/24 12:59 Resp 18 08/20/24 12:59 BP 163/69 08/20/24 12:59 Pulse Ox 93 L 08/20/24 12:59 FiO2 Intake & Output 08/20/24 08/20/24 08/21/24 06:59 18:59 06:59 Intake Total 2150 Output Total 1200 600 Balance -1200 1550 Intake: Intake, IV Titration 1610 Amount Piperacillin-Tazobactam 3 50 .375 gm In Sodium Chloride 0.9% 100 ml @ 25 mls/hr IVPB Q8H [facility] Rx#: [id number] Sodium Chloride 0.9% 1, 1560 000 ml @ 130 mls/hr IV . Q7H42M [facility] Rx#:[id number] Oral 540 Output: Urine 1200 600 Uretheral (Bautista) 600 Other: Voiding Method Indwelling Catheter Indwelling Catheter # Bowel Movements 2 2 - Constitutional General appearance: Present: average body habitus, cooperative, no acute distress - EENT Eyes: Present: anicteric sclerae, EOMI ENT: Present: hearing grossly normal, normal oropharynx - Respiratory Respiratory: bilateral: rhonchi (L>R) - Cardiovascular Heart sounds: normal: S1, S2 Abnormal Heart Sounds: Absent: systolic murmur, diastolic murmur, rub, S3 Gallop, S4 Gallop, click, other - Gastrointestinal General gastrointestinal: Present: normal bowel sounds, soft, tenderness - Integumentary Integumentary: Present: pale - Neurologic Neurologic: Present: CNII-XII intact - Musculoskeletal Musculoskeletal: Present: generalized weakness - Psychiatric Psychiatric Comment(s): falls asleep easily but answers questions appropriately - Labs CBC & Chem 7: 08/20/24 04:33 08/20/24 04:33 Labs: Abnormal Lab Results - Last 24 Hours (Table) 08/19/24 08/20/24 08/20/24 Range/Units 20:27 01:41 04:33 RBC 4.09 L (4.30-5.90) m/uL Hgb 12.2 L (13.0-17.5) gm/dL Hct 37.6 L (39.0-53.0) % Plt Count 114 L (150-450) k/uL Chloride (98-107) mmol/L Carbon Dioxide (22-30) mmol/L BUN (9-20) mg/dL Creatinine (0.66-1.25) mg/dL Glucose (74-99) mg/dL POC Glucose (mg/dL) 159 H 133 H (70-110) mg/dL Calcium (8.4-10.2) mg/dL AST (17-59) U/L ALT (4-49) U/L Creatine Kinase (55-170) U/L Total Protein (6.3-8.2) g/dL Albumin (3.5-5.0) g/dL 08/20/24 08/20/24 08/20/24 Range/Units 04:33 07:18 17:13 RBC (4.30-5.90) m/uL Hgb (13.0-17.5) gm/dL Hct (39.0-53.0) % Plt Count (150-450) k/uL Chloride 111 H (98-107) mmol/L Carbon Dioxide 20 L (22-30) mmol/L BUN 25 H (9-20) mg/dL Creatinine 1.80 H (0.66-1.25) mg/dL Glucose 114 H (74-99) mg/dL POC Glucose (mg/dL) 141 H 111 H (70-110) mg/dL Calcium 6.6 L (8.4-10.2) mg/dL AST 149 H (17-59) U/L ALT 92 H (4-49) U/L Creatine Kinase 4300 H* (55-170) U/L Total Protein 5.5 L (6.3-8.2) g/dL Albumin 2.7 L (3.5-5.0) g/dL Microbiology - Last 24 Hours (Table) 08/19/24 01:13 Blood Culture - Preliminary Blood 08/17/24 00:00 Blood Culture - Preliminary Blood 08/18/24 11:25 Urine Culture - Final Urine,Catheterized Assessment and Plan (1) Rhabdomyolysis Current Visit: Yes Status: Acute Priority: High Code(s): M62.82 - RHABDOMYOLYSIS SNOMED Code(s): 247171353 (2) WU (acute kidney injury) Current Visit: Yes Status: Acute Priority: High Code(s): N17.9 - ACUTE KIDNEY FAILURE, UNSPECIFIED SNOMED Code(s): 11452933 (3) Fever, unknown origin Current Visit: Yes Status: Acute Priority: High Code(s): R50.9 - FEVER, UNSPECIFIED SNOMED Code(s): 4569020 (4) Renal cell carcinoma Current Visit: Yes Status: Acute Priority: High Code(s): C64.9 - MALIGNANT NEOPLASM OF UNSP KIDNEY, EXCEPT RENAL PELVIS SNOMED Code(s): 428130620 Plan: Rhabdomyelosis -Patient was seen in the office last week after a fall, it is suspected he laid on the floor for about 12 hours. He was very weak and could not stand -Pt was hydrated in ofc. He did feel better after, little stronger. Labs were checked, CK was significantly elevated at greater than 5000, renal function ordered STAT but results were not returned before the CK results so, patient was sent into the hospital for further fluids, monitoring and treatment of the same. -CK continues to be significantly elevated. Renal function is improving Renal cell carcinoma -Patient is currently on treatment, status post first cycle dual immunotherapy. -CBC is not significant for chemotherapy toxicity. -Treatment will continue based on his recovery from his current condition -Fever of unknown origin -Patient has been having fevers since just after admit, with no resolution of fever pattern. -Infectious disease has been consulted and is now following. -Pancultures pending -CT of the abdomen and pelvis was ordered by ID to assess for abdominal discomfort, diarrhea. Pending results.
[2024-08-20 20:12] LABS: Glucose,Whole Blood 153 mg/dL (70-110)
--- NOTE | 2024-08-20 21:36 | P.PN ---
Subjective Progress Note Date: 08/20/24 HISTORY OF PRESENT ILLNESS: 68-year-old with active medical history of type 2 diabetes, previous history of coagulopathy with deep venous thrombosis and pulmonary embolism, multiple cancer including skin cancer, lymphoma, and right-sided renal cell carcinoma postresection who also known to have stage III chronic kidney disease have chronic arthralgia, chronic neuropathy, history of gout and hyperlipidemia who also has history of arrhythmia. He was seen and evaluated few months ago for left middle finger growth initially looks like this is a form like gout and that being sent to see Dr. Palma hand specialist who apparently did further more testing and determined this is probably metastatic cancer from most likely the kidney ended up sending patient to see Ortho oncology arrangement for PET scan was done and found finding consistent with metastasis to the right middle lobe along with the left tibia and left middle finger was diagnosed as an advanced stage metastatic renal cell carcinoma the patient is dealing with the consequences and complication of his advanced cancer has been seen oncology and start chemotherapy. The patient has been quite weak and tired he also had multi medical problem he does not drive because they are to be legally blind, has been having more trouble with balance and gait. Apparently his sister will check on him a regular basis found him on the floor of his bathroom after he fell without remembering what happened exactly and was on the floor for over 10 hours she called EMS to help her out to put him in her car and drove him to his oncologist office where was seen and evaluated laboratory tests were done determined he is to be on more kidney failure than expected was sent to the emergency department at the point where was seen his CK was 3673 kidney function is much worse with GFR down to 26. Patient was started on hydration Admit to the hospital will consult nephrology. Testing including CAT scan of the brain was performed which shows mild generalized cerebral atrophy with no acute intracranial hemorrhage, pelvic x-ray showed no obvious displaced fracture through the exam very limited as a lower femoral neck is obscured by rotated hip position and the right greater trochanteric is cut off of the image. Also chest x-ray showed COPD with 4.3 cm mass at the basilar of the right lower lobe which spotted from before w ith his metastatic renal cell CA. Patient still slightly bit confused and not acting himself still not feeling well not able to ambulate walk or put any pressure 08/17/2024: He has done better today CK still at 3673: Creatinine is down to 2.3 with bun of 46 and GFR of 30 continue to watch blood sugar level more carefully, he was seen nephrology and agreed to maintain bicarbonate drip 0 insert Bautista catheter watch urine output and add Flomax for better compliance and less u rinary retention. Renal ultrasound was ordered report as right-sided nephrectomy change with no sign of obstruction. Blood pressure still mildly elevated at 155/55 with the change in medicine currently remain on amlodipine 10, will try to add some hydralazine on demand to keep systolic blood pressure below 140 08/18/2024: Patient is slightly bit confused, his numbers are slightly better today with his CK little bit higher at 5085 but creatinine down to 2.1 with GFR at 33, low-grade anemia, still having low-grade temperature not a clear etiology UA and chest x-ray are negative so far. This is can be tumor fever without having to find any acute active infection. Mobility significantly decreased patient is almost bedridden require help. Urine output still good currently. Continue aggressive hydration, still seen nephrology, will continue PT OT and patient most likely require to go to subacute rehab. 08/19/2024: Patient continues to suffer from fever and chills his rhabdomyolysis has improved some kidney function remained the same with GFR 31 patient still seen nephrology potassium is up to 3.2 from yesterday no major change with his h emoglobin. Procalcitonin was done again today and was slightly with elevated patient fever and chills continue Zosyn for now for gram-negative coverage either Zosyn or cefepime will be a good idea will consult infectious disease for possible further workup needed his temperature might be tumor fever mostly more than an infection based specially with the current cancer and metastasis he has. Sadly another possibility for his fever can be obstructive pneumonitis from the tumor exist in the right side of his lung causing problem. Patient is very debilitated not been able to ambulate or walk he is bedridden require further and more help at this point even when he is ready to leave the hospital is probably require either inpatient rehab with sadly if he does he cannot do any chemotherapy or he might go to inpatient rehab which again need to stop his chemotherapy till he is done. 08/20/2024: He is feeling slightly better continue to run fever with chills no absolute explanation with finding consistent with abscess but he has masslike effect in the abdominal cavity consistent with his metastasis from renal cell carcinoma, also procalcitonin was elevated indicating infection and patient remain on Zosyn at this point. Still been treated for obstructive pneumonitis which probably good diagnosis at this point specially with the mass in the right lower lobe in his lung. Kidney function is much better with GFR up his creatinine is down to 1.8 with continue hydration still seen nephrology and his rhabdomyolysis has improved significantly. In regard of his mobility and activity he is still really has limited activity almost bedridden require more help continue physical therapy and hopefully prepare for sometime in the next 24 to 48 hours to go into rehab. Patient is stable and doing well. REVIEW OF SYSTEMS: CONSTITUTIONAL: Well-developed slightly confused no acute respiratory distress. EYES: No icterus sclerae, no conjunctivitis. EARS, NOSE, MOUTH, THROAT, and FACE: No sore throat, lymphadenopathy, carotid bruits or deformity. RESPIRATORY: Mild shortness of breath CARDIOVASCULAR: No CP, slight palpitation no angina. GASTROINTESTINAL: No Abd pain, nausea no vomiting no diarrhea slight constipation no active GI bleed at this point. GENITOURINARY: Negative for Hematuria or UTI, no kidney stones. Renal cell CA with metastasis no kidney stones or hematuria. INTEGUMENT/BREAST: Generalized arthralgia with muscle and joint pain and mostly problem with the left middle finger and left medial aspect of the tibia on the left side. HEMATOLOGIC/LYMPHATIC: Chronic anemia. MUSCULOSKELTAL: Generalized arthralgia and myalgia NEURLOGICAL: Slight altered mental status with? Of dizziness lightheadedness and fatigue with no motor deficit. BEHAVIORAL/PSYCH: Negative. ENDOCRINE: Negative. PHYSICAL EXAMINATION: General Appearance: Alert, cooperative, no distress, appears stated age. Neck HEENT: Supple, no lymphadenopathy, no thyroid enlargement, no carotid bruits. Lungs: Decreased breath sound bilaterally with fine rhonchi positive expiratory wheezes no crackles. Slight discomfort on the chest wall area. Slight discomfort in the chest wall area. Heart: Regular rate and rhythm, S1, S2 normal, no murmur, rub or gallop. Back: Slight discomfort lumbar spine no sign of bruise. Abdomen: Soft positive bowel sound no organomegaly slight discomfort in the mid lower abdominal region area no rebound or rigidity. Extremities: Left middle finger still have significant swelling as a fusiform also has slight swelling on the medial aspect of the left tibia trace edema with generalized arthralgia. Pulses: 2+ and symmetric. Skin: Skin color, scar tissue of skin cancer in the facial area. Neurologic: Alert oriented with slight confusion cranial nerves II through XII intact, positive generalized weakness positive normal balance and gait. ASSESSMENT AND PLAN: _Fever and chills with infection most likely obstructive pneumonitis but there is a possibility might be related to the metastasis the cancer has grown inside abdominal cavity causing more problem. _Acute kidney injury secondary to severe dehydration and rhabdomyolysis, slightly bit better. _Acute rhabdomyolysis: Continue to see nephrology, continue hydration continue to watch kidney function carefully. _Fever and chills: Possibly gram-negative infection, will consult infectious disease, cultures negative so far but procalcitonin is mildly elevated patient was started on Zosyn will continue medication for now would presume this is to be related to obstructive pneumonitis from the area from his growth. _Stage IV kidney cancer with metastasis has been seen oncology on chemotherapy which will consult oncology at this point hold chemotherapy temporary till he is hydrated and rhabdomyolysis clear. _Thrombocytopenia: _Few masses in the abdominal cavity most likely metastasis from renal cell CA. _Chronic kidney disease with stage III A has been much worse with his rhabdomyolysis at this point. _Type 2 diabetes: Remain on Prandin 1 mg twice a day, Farxiga 10 mg daily, Toujeo 35 units daily continue Accu-Chek sliding scales coverage will watch symptoms carefully. Blood sugar has been much better so far in the low 100s. _Hypertension: Remain on amlodipine/benazepril 10/40 mg a day will titrate dose and add probably smaller dose of hydralazine if needed. _Hyperlipidemia: Remain on atorvastatin 40 mg a day continue medication. _Chronic edema with mild chronic diastolic heart failure, has been on benazepril and furosemide. _Previous history of lymphoma postchemotherapy has been in remission._ _BPH: Watch for any urinary retention started on Flomax. Debility: Patient remained very weak continue to have fever chills continue to have significant decreased mobility and ability to ambulate require more help almost bedridden. Will continue physical therapy occupational therapy continue to see the consultation recommendation by infectious disease and oncology will consult physiatry for possible inpatient rehab. Objective - Vital Signs Vital signs: Vital Signs Temp 99.4 F 08/20/24 02:00 Pulse 82 10/14/24 02:00 Resp 16 08/20/24 02:00 BP 145/62 08/20/24 02:00 Pulse Ox 93 L 08/20/24 02:00 FiO2 Intake & Output 08/19/24 08/19/24 08/20/24 06:59 18:59 06:59 Intake Total 1320 Output Total 550 1200 Balance -550 120 Intake: Oral 1320 Output: Urine 550 1200 Other: Voiding Method Indwelling Catheter Indwelling Catheter # Bowel Movements 1 2 - Labs CBC & Chem 7: 08/20/24 04:33 08/20/24 04:33 Labs: Abnormal Lab Results - Last 24 Hours (Table) 08/19/24 08/19/24 08/19/24 Range/Units 01:00 12:19 17:07 RBC (4.30-5.90) m/uL Hgb (13.0-17.5) gm/dL Hct (39.0-53.0) % Plt Count (150-450) k/uL POC Glucose (mg/dL) 120 H 167 H (70-110) mg/dL Procalcitonin 1.02 H (0.02-0.50) ng/mL 08/19/24 08/20/24 08/20/24 Range/Units 20:27 01:41 04:33 RBC 4.09 L (4.30-5.90) m/uL Hgb 12.2 L (13.0-17.5) gm/dL Hct 37.6 L (39.0-53.0) % Plt Count 114 L (150-450) k/uL POC Glucose (mg/dL) 159 H 133 H (70-110) mg/dL Procalcitonin (0.02-0.50) ng/mL Microbiology - Last 24 Hours (Table) 08/17/24 00:00 Blood Culture - Preliminary Blood 08/18/24 11:25 Urine Culture - Final Urine,Catheterized
[2024-08-20 22:46] LABS: Basophils % (A) 1 %; Eosinophils # (A) 0.3 k/uL (0-0.7); Eosinophils % (A) 5 %; HCT 31.5 % (39.0-53.0); HGB 10.6 gm/dL (13.0-17.5); Lymphocytes % (A) 16 %; MCH 30.5 pg (25.0-35.0); MCHC 33.7 g/dL (31.0-37.0); MCV 90.3 fL (80.0-100.0); Monocytes # (A) 0.3 k/uL (0-1.0); Monocytes % (A) 4 %; Neutrophils # (A) 4.8 k/uL (1.3-7.7); Neutrophils % (A) 73 %; Platelet Count 104 k/uL (150-450); Poikilocytosis Slight; RBC 3.49 m/uL (4.30-5.90); RDW 15.2 % (11.5-15.5); WBC 6.7 k/uL (3.8-10.6)
[2024-08-20 22:47] LABS: ALT 82 U/L (4-49); AST 120 U/L (17-59); African American GFR (CKD) 47 (>60 ml/min/1.73 sqM); Albumin 2.5 g/dL (3.5-5.0); Alkaline Phosphatase 138 U/L (38-126); Anion Gap 8 mmol/L; Blood Urea Nitrogen 22 mg/dL (9-20); Carbon Dioxide 20 mmol/L (22-30); Chloride 111 mmol/L (98-107); Globulin 2.6 g/dL; Glucose 109 mg/dL (74-99); Magnesium 2.3 mg/dL (1.6-2.3); Non-African American GFR(CKD) 41 (>60 ml/min/1.73 sqM); Potassium 3.4 mmol/L (3.5-5.1); Sodium 139 mmol/L (137-145); Total Bilirubin 0.8 mg/dL (0.2-1.3); Total Protein 5.1 g/dL (6.3-8.2)
[2024-08-20 22:52] LABS: Calcium 6.2 mg/dL (8.4-10.2)
[2024-08-20 23:14] LABS: Glucose,Whole Blood 91 mg/dL (70-110)
[2024-08-21] MEDS: CALCIUM GLUCONATE IN NACL 2 GM in SALINE 1 100ML.BAG IVPB ONE (00:04)
[2024-08-21 01:21] LABS: Glucose,Whole Blood 82 mg/dL (70-110)
[2024-08-21 07:29] LABS: Glucose,Whole Blood 93 mg/dL (70-110)
[2024-08-21] MEDS: ZINC OXIDE PASTE (Z-GUARD) 1 APPLIC TOPICAL PRN (09:21)
[2024-08-21 12:00] LABS: Glucose,Whole Blood 96 mg/dL (70-110)
--- NOTE | 2024-08-21 12:50 | CDI ---
Documentation Clarification Form Date: 08/21/2024 From: Sherly Mcconnell RN CCDS Phone: [phone] Admit Date: 08/16/2024 08:03:00 PM Patient Name: Ariel Diehl Visit Number: [id number] Discharge Date: ATTENTION: The Clinical Documentation Specialists (CDI) and [facility] Coding Staff appreciate your assistance in clarifying documentation. Please respond to the clarification below the line at the bottom and electronically sign. The CDI & [facility] Coding staff will review the response and follow-up if needed. Please note: Queries are made part of the Legal Health Record. If you have any questions, please contact the author of this message via ITS. Doctor/Provider: Major Sanchez MD: Rhabdomyolysis is documented in the ED note 08/16 and in subsequent notes. Additional clarification regarding the type of rhabdomyolysis is requested. History/Risk Factors: 68-year-old male with a history of coagulopathy, DVT, PE, right side renal cell carcinoma post resection CKD3, who presented after fall and laying on floor for over 10 hours Clinical Indicators: 08/16 ED note, Clinical Impression: "Rhabdomyolysis, WU" 08/17 H&P, Assessment and Plan: Acute rhabdomyolysis" 08/17 Nephrology Consult, Assessment: 4. Rhabdomyolysis secondary to fall and immobility" 08/20 Oncology PN, Plan: "Rhabdomyolysis -Patient was seen in the office last week after a fall, it is suspected he laid on the floor for about 12 hours. He was very weak and could not stand." 08/17, 08/18, 08/20 Creatine Kinase: 3673, 5085, 4300 08/16-08/20 BUN 54, 46.1, 37.1, 33, 25, 22 Creatinine: 2.45, 2.3, 2.1, 2.12, 1.80, 1.68 Treatment: Normal Saline IV 130cc/hour start 08/18 Please clarify the type of rhabdomyolysis, if known: [ ] Traumatic rhabdomyolysis due to fall [ ] Traumatic rhabdomyolysis due to prolonged immobility [ xx ] Traumatic rhabdomyolysis due to fall and prolonged immobility [ ] Other, please specify [ ] Unable to Determine MTDD
[2024-08-21] MEDS: ASPIRIN 81 MG PO SCH (14:10)
[2024-08-21] MEDS: METOPROLOL TARTRATE 25 MG TAB PO SCH (14:15)
--- NOTE | 2024-08-21 14:51 | P.CRDCN ---
History of Present Illness Consult date: 08/21/24 Reason for Consult (text): Rhythm change History of present illness: This is a 68-year-old male with past medical history of renal cell carcinoma currently on immunotherapy, DVT and pulmonary embolism, lymphoma, chronic kidney disease stage III, gout, hyperlipidemia, hypertension, diabetes mellitus type 2. Patient does not follow with a director of patient care. We have been asked to evaluate the patient for change in rhythm. Patient was admitted on 08/16 and has been seen by multiple consultants and treated for acute rhabdomyolysis, acute kidney injury, stage IV kidney cancer, urinary retention, ongoing fever. Patient presented to the hospital due to weakness after he was found on the ground, lost his balance and caused him to fall without head injury or loss of consciousness. Patient apparently had a fall on Tuesday evening and was found on morning. Upon review of telemetry, patient had nonsustained ventricular tachycardia, 6 beat on the evening of 08/20 and 8 beat on 08/19 with additional shorter episodes. At the time, patient was febrile, diaphoretic. Source of fever is being investigated by infectious disease. Patient denies any recent medication changes, no abdominal pain no chest pain. He denies shortness of breath. He has not been out of bed since he has been hospitalized. He denies any blood in his stools. Blood pressure 158/66, heart rate 80s to 90s, temperature max 102.9 axillary, pulse ox 97% on 2 L nasal cannula. EK/10: Chest x-ray: Laboratory studies: WBC 6.7, hemoglobin 10.6, platelet count 104. Sodium 139, potassium 3.4, CO2 20, BUN 22 creatinine 1.68. CK 4300. Troponins 0.484 and 0.366. Lactic acid 1.2. proBNP 4660. Procalcitonin 1.02. C. difficile toxin not detected. Influenza A, influenza B, RSV, COVID-19 not detected. Home cardiac medications: Amlodipine/benazepril 10-40 mg 1 daily, atorvastatin 40 mg daily, Farxiga 10 mg daily, Lasix 40 mg on Wednesdays. Review Of Systems: At the time of my exam: CONSTITUTIONAL: + fever or chills. HEENT: Denies blurred vision, vision changes, or eye pain. Denies hemoptysis CARDIOVASCULAR: Denies chest pain. Denies orthopnea. Denies PND. Denies palpitations RESPIRATORY: Denies shortness of breath. GASTROINTESTINAL: Denies abdominal pain. Denies nausea or vomiting. HEMATOLOGIC: Denies bleeding disorders. GENITOURINARY: Denies any blood in urine. SKIN: Denies puritis. Denies rash. Physical examination: Gen: This is a 68-year-old male in no acute distress VS: reviewed HEENT: Head is atraumatic, normocephalic. Pupils equal, round. Sclerae is anicteric. NECK: Supple. No JVD. LUNGS: Clear to auscultation. No wheezes or rhonchi. No intercostal retractions. HEART: Regular rate and rhythm. No murmur. ABDOMEN: Soft No tenderness. EXTREMITIES: Minimal pedal edema. No calf tenderness. NEUROLOGICAL: Patient is awake, alert and oriented x3. Assessment: Nonsustained ventricular tachycardia Elevated troponins most likely secondary to sepsis, metastatic cancer, type II AR Chronic diastolic heart failure, lower extremity edema most likely due to third spacing from hypoproteinemia Febrile illness unclear etiology Metastatic renal cell carcinoma DVT and pulmonary embolism History of lymphoma Chronic kidney disease stage IV Hypertension Hyperlipidemia Diabetes mellitus type 2 Plan: Continue current cardiac medications: Amlodipine 10 mg daily, atorvastatin 40 mg daily Start patient on metoprolol tartrate 25 mg twice daily and aspirin 81 mg daily Monitor fluid status Obtain 2-D echocardiogram and Doppler study to assess cardiac structure and function Further recommendations to follow based upon clinical course Thank you kindly for this consultation. Nurse practitioner note has been reviewed, I agree with documented findings and plan of care. Patient was seen and examined. Past Medical History Past Medical History: Cancer, Diabetes Mellitus, Deep Vein Thrombosis (DVT), Hyperlipidemia, Hypertension, Renal Disease Additional Past Medical History / Comment(s): renal cell carcinoma, DVT in right leg r/t chemo, has louise filter History of Any Multi-Drug Resistant Organisms: None Reported Past Surgical History: Adenoidectomy, Hernia Repair, Tonsillectomy Additional Past Surgical History / Comment(s): cancerous kidney removed appox 2014 Past Anesthesia/Blood Transfusion Reactions: No Reported Reaction Past Psychological History: No Psychological Hx Reported Smoking Status: Never smoker Past Alcohol Use History: None Reported Past Drug Use History: None Reported Medications and Allergies Home Medications Medication Instructions Recorded Confirmed Type Atorvastatin [Lipitor] 40 mg PO DAILY 08/16/24 08/16/24 History Carboxymethylcellulose Sodium 1 drop BOTH EYES Q2H PRN 08/16/24 08/16/24 History [Refresh Tears] Cetirizine HCl [Zyrtec] 10 mg PO DAILY PRN 08/16/24 08/16/24 History Dapagliflozin Propanediol [Farxiga] 10 mg PO DAILY 08/16/24 08/16/24 History Fenofibrate Nanocrystallized 145 mg PO DAILY 08/16/24 08/16/24 History [Fenofibrate] Furosemide [Lasix] 40 mg PO WE 08/16/24 08/16/24 History Insulin Glargine,Hum.rec.anlog 35 units SQ DAILY 08/16/24 08/16/24 History [Toujeo Solostar] Latanoprost [Latanoprost 0.005%] 1 drop LEFT EYE HS 08/16/24 08/16/24 History Repaglinide [Prandin] 1 mg PO AC-BRKFST 08/16/24 08/16/24 History allopurinoL [Zyloprim] 100 mg PO DAILY 08/16/24 08/16/24 History amLODIPine BESYLATE/BENAZEPRIL 1 cap PO DAILY 08/16/24 08/16/24 History [Lotrel 10-40 mg Capsule] Allergies Allergy/AdvReac Type Severity Reaction Status Date / Time No Known Allergies Allergy Verified 08/16/24 16:49 Physical Exam Vitals: Vital Signs Temp Pulse Resp BP BP Pulse Ox 08/21/24 09:28 99.8 F H 08/21/24 07:50 97 08/21/24 07:21 100.1 F H 95 16 158/66 96 08/21/24 06:05 101 F H 08/21/24 02:00 98.6 F 86 16 176/70 96 08/20/24 23:18 101 F H 08/20/24 21:22 102.6 F H 103 H 20 163/69 93 L 08/20/24 20:00 102.9 F H 107 H 16 161/64 93 L 08/20/24 12:59 98.4 F 91 18 163/69 93 L Intake and Output 08/20/24 08/21/24 08/21/24 22:59 06:59 14:59 Intake Total 2150 Output Total 600 2275 Balance 1550 -2275 Intake: Intake, IV Titration 1610 Amount Piperacillin-Tazobactam 3 50 .375 gm In Sodium Chloride 0.9% 100 ml @ 25 mls/hr IVPB Q8H [facility] Rx#: [id number] Sodium Chloride 0.9% 1, 1560 000 ml @ 130 mls/hr IV . Q7H42M [facility] Rx#:[id number] Oral 540 Output: Urine 600 2275 Uretheral (Bautista) 600 725 Other: Voiding Method Diaper # Bowel Movements 2 3 Results 08/20/24 22:15 08/20/24 22:15 Cardiac Enzymes 08/20/24 08/20/24 08/21/24 Range/Units 22:15 22:15 04:06 AST 120 H (17-59) U/L Troponin I 0.484 H* 0.366 H* (0.000-0.034) ng/mL CBC 08/20/24 Range/Units 22:15 WBC 6.7 (3.8-10.6) k/uL RBC 3.49 L (4.30-5.90) m/uL Hgb 10.6 L (13.0-17.5) gm/dL Hct 31.5 L (39.0-53.0) % Plt Count 104 L (150-450) k/uL Comprehensive Metabolic Panel 08/20/24 Range/Units 22:15 Sodium 139 (137-145) mmol/L Potassium 3.4 L (3.5-5.1) mmol/L Chloride 111 H (98-107) mmol/L Carbon Dioxide 20 L (22-30) mmol/L BUN 22 H (9-20) mg/dL Creatinine 1.68 H (0.66-1.25) mg/dL Glucose 109 H (74-99) mg/dL Calcium 6.2 L* (8.4-10.2) mg/dL AST 120 H (17-59) U/L ALT 82 H (4-49) U/L Alkaline Phosphatase 138 H (38-126) U/L Total Protein 5.1 L (6.3-8.2) g/dL Albumin 2.5 L (3.5-5.0) g/dL Current Medications Generic Name Dose Route Start Last Admin Trade Name Freq PRN Reason Stop Dose Admin Acetaminophen 650 mg 08/16/24 20:03 08/20/24 22:25 Acetaminophen Tab 325 Mg Tab PO 650 mg Q6HR PRN Administration Mild Pain or Fever > 100.5 Allopurinol 100 mg 08/17/24 09:00 08/21/24 09:12 Allopurinol 100 Mg Tab PO 100 mg DAILY [facility] Administration Amlodipine Besylate 10 mg 08/17/24 09:00 08/21/24 09:12 Amlodipine 10 Mg Tab PO 10 mg DAILY [facility] Administration Artificial Tears 1 drops 08/16/24 20:46 Artificial Tears-Hypromellose Drops 15 Ml Btl BOTH EYES Q2H PRN Dry Eye(s) Atorvastatin Calcium 40 mg 08/16/24 21:00 08/21/24 09:12 Atorvastatin 40 Mg Tab PO 40 mg DAILY [facility] Administration Enoxaparin Sodium 40 mg 08/18/24 09:00 08/21/24 09:11 Enoxaparin 40 Mg/0.4 Ml Syringe SQ 40 mg DAILY [facility] Administration Fenofibrate 160 mg 08/17/24 09:00 08/21/24 09:12 Fenofibrate 160 Mg Tab PO 160 mg DAILY [facility] Administration Hydralazine HCl 25 mg 08/17/24 21:31 Hydralazine Hcl 25 Mg Tab PO QID PRN Blood Pressure - High Piperacillin Sod/Tazobactam 100 mls @ 25 mls/hr 08/18/24 12:00 08/21/24 04:42 Sod 3.375 gm/ Sodium Chloride IVPB 25 mls/hr Q8H [facility] Administration Protocol Sodium Chloride 1,000 mls @ 130 mls/hr 08/18/24 13:00 08/21/24 04:42 Saline 0.9% IV 130 mls/hr .Q7H42M [facility] Administration Insulin Aspart 0 unit 08/17/24 12:30 08/21/24 09:09 Insulin Aspart (Novolog) 100 Unit/Ml Vial SQ Not Given ACHS [facility] Protocol Insulin Detemir 35 unit 08/17/24 07:00 08/21/24 07:59 Insulin Detemir (Levemir) 100 Unit/Ml Syr SQ Not Given DAILY@0700 [facility] Latanoprost 1 drops 08/16/24 21:00 08/20/24 20:15 Latanoprost 0.005% Ophth Drops 2.5 Ml Btl LEFT EYE 1 drops HS [facility] Administration Loratadine 10 mg 08/16/24 20:46 Loratadine 10 Mg Tab PO DAILY PRN Allergy Symptoms Naloxone HCl 0.2 mg 08/16/24 20:03 Naloxone 0.4 Mg/Ml 1 Ml Vial IV Q2M PRN Opioid Reversal Nystatin 1 applic 08/17/24 21:00 08/21/24 09:13 Nystatin 100,000 Unit/Gm Powd 15 Gm TOPICAL 1 applic BID [facility] Administration Protocol Ondansetron HCl 4 mg 08/16/24 20:03 Ondansetron 4 Mg/2 Ml Vial IVP Q8HR PRN Nausea And Vomiting Pantoprazole Sodium 40 mg 08/18/24 07:30 08/21/24 09:14 Pantoprazole 40 Mg Tablet PO 40 mg AC-BRKFST [facility] Administration Petrolatum 1 applic 08/17/24 18:06 08/21/24 09:21 Zinc Oxide Paste (Z-Guard) 1 Applic TOPICAL 1 applic DAILY PRN Administration Wound Healing Protocol Petrolatum 1 applic 08/18/24 12:12 Zinc Oxide Paste (Z-Guard) 1 Applic TOPICAL BID PRN Wound Healing Protocol Repaglinide 1 mg 08/17/24 07:30 08/21/24 09:11 Repaglinide 1 Mg Tab PO 1 mg AC-BRKFST [facility] Administration Tamsulosin HCl 0.4 mg 08/17/24 11:00 08/21/24 09:14 Tamsulosin 0.4 Mg Cap.Er.24h PO 0.4 mg PC-BRKFST [facility] Administration Intake and Output 08/20/24 08/21/24 08/21/24 22:59 06:59 14:59 Intake Total 2150 Output Total 600 2275 Balance 1550 -2275 Intake: Intake, IV Titration 1610 Amount Piperacillin-Tazobactam 3 50 .375 gm In Sodium Chloride 0.9% 100 ml @ 25 mls/hr IVPB Q8H [facility] Rx#: [id number] Sodium Chloride 0.9% 1, 1560 000 ml @ 130 mls/hr IV . Q7H42M [facility] Rx#:[id number] Oral 540 Output: Urine 600 2275 Uretheral (Bautista) 600 725 Other: Voiding Method Diaper # Bowel Movements 2 3 08/20/24 22:15 08/20/24 22:15
[2024-08-21 14:56] LABS: African American GFR (CKD) 50 (>60 ml/min/1.73 sqM); Anion Gap 9 mmol/L; Blood Urea Nitrogen 19 mg/dL (9-20); Calcium 6.5 mg/dL (8.4-10.2); Carbon Dioxide 21 mmol/L (22-30); Chloride 110 mmol/L (98-107); Glucose 93 mg/dL (74-99); Non-African American GFR(CKD) 44 (>60 ml/min/1.73 sqM); Potassium 3.4 mmol/L (3.5-5.1); Sodium 140 mmol/L (137-145)
--- NOTE | 2024-08-21 15:05 | CA ---
Transthoracic Echo Report Name: Ariel Diehl Age: 68 Gender: M : 1955 Exam Date: 08/21/2024 11:08 Exam Location: [facility] Ht (in): 75 Wt (lb): 225 Ordering Physician: Major Sanchez MD Attending/Referring Phys: Senior [employer] Developer Angeles Cox RDCS Procedure CPT: Indications: lvfunction Cardiac Hx: Technical Quality: Fair Contrast 1: Total Dose (mL): Contrast 2: Total Dose (mL): MEASUREMENTS (Male / Female) Normal Values 2D ECHO LV Diastolic Diameter PLAX 6.2 cm 4.2 - 5.9 / 3.9 - 5.3 cm LV Systolic Diameter PLAX 4.1 cm IVS Diastolic Thickness 1.0 cm 0.6 - 1.0 / 0.6 - 0.9 cm LVPW Diastolic Thickness 1.2 cm 0.6 - 1.0 / 0.6 - 0.9 cm LV Relative Wall Thickness 0.3 LVOT Diameter 2.9 cm LV Diastolic Volume MOD BP 201.9 cm??? 67 - 155 / 56 - 104 cm??? LV Systolic Volume MOD BP 109.3 cm??? 22 - 58 / 19 - 49 cm??? LV Ejection Fraction MOD BP 45.9 % >= 55 % LV Cardiac Index MOD BP 3602.0 cm???/min???m??? LV Diastolic Volume MOD 4C 185.6 cm??? LV Systolic Volume MOD 4C 98.8 cm??? LV Ejection Fraction MOD 4C 46.8 % LV Cardiac Index MOD 4C 3376.6 cm???/min???m??? LV Diastolic Length 4C 9.5 cm LV Systolic Length 4C 8.1 cm LV Diastolic Volume MOD 2C 213.7 cm??? LV Systolic Volume MOD 2C 112.8 cm??? LV Ejection Fraction MOD 2C 47.2 % LV Cardiac Index MOD 2C 3927.5 cm???/min???m??? LV Diastolic Length 2C 9.8 cm LV Systolic Length 2C 8.7 cm LA Volume 53.3 cm??? 18 - 58 / 22 - 52 cm??? LA Volume Index 22.8 cm???/m??? 16 - 28 cm???/m??? Ascending Aorta Diameter 4.7 cm DOPPLER AV Peak Velocity 122.5 cm/s AV Peak Gradient 6.0 mmHg AV Mean Velocity 85.5 cm/s AV Mean Gradient 3.3 mmHg AV Velocity Time Integral 22.5 cm LVOT Peak Velocity 111.3 cm/s LVOT Peak Gradient 5.0 mmHg LVOT Velocity Time Integral 22.3 cm LVOT Stroke Volume 143.2 cm??? LVOT Stroke Volume Index 62.1 ml/m??? LVOT Cardiac Index 5570.9 cm???/min???m??? AV Area Cont Eq vti 6.4 cm??? AV Area Cont Eq pk 5.8 cm??? MV Area PHT 6.1 cm??? Mitral E Point Velocity 57.8 cm/s Mitral A Point Velocity 68.8 cm/s Mitral E to A Ratio 0.8 MV Deceleration Time 124.0 ms PV Peak Velocity 121.5 cm/s PV Peak Gradient 5.9 mmHg FINDINGS Left Ventricle Left ventricular ejection fraction is estimated at 50 %. Mildly increased left ventricular diastolic diameter. Severely increased left ventricular diastolic volume. Severely increased left ventricular systolic volume. Mildly decreased left ventricular ejection fraction with global hypokinesis. Right Ventricle Normal right ventricular size and function. Unable to estimate the right ventricular systolic pressure. Right Atrium Normal right atrial size. Left Atrium Normal left atrial size. Mitral Valve Structurally normal mitral valve. No mitral stenosis, regurgitation or prolapse. Aortic Valve Trileaflet aortic valve. No aortic stenosis. Moderate aortic regurgitation. Tricuspid Valve Structurally normal tricuspid valve. No tricuspid stenosis. Trace tricuspid regurgitation. Pulmonic Valve Structurally normal pulmonic valve. No pulmonic regurgitation. Trace pulmonic regurgitation. Pericardium No pericardial effusion. Aorta Severely dilated aortic annulus, 5cm. Moderately dilated ascending aorta, 4.7cm. CONCLUSIONS Left ventricular ejection fraction 50% No mitral regurgitation Moderate aortic regurgitation Trace tricuspid regurgitation Ascending aortic aneurysm measuring 5.0 cm. Previewed by: Dr. Kenton Bond DO (Electronically Signed) Final Date: 21 August 2024 15:04
--- NOTE | 2024-08-21 15:59 | P.PN ---
Subjective Progress Note Date: 08/20/24 Principal diagnosis: Reason for follow-up is fever Patient is a 68-year-old male with a past medical history significant for diabetes mellitus hypertension hyperlipidemia DVT renal cell carcinoma with a last chemo about 2 weeks before presentation to the hospital with weakness did have a fever prompting this consultation. On today's evaluation that is 08/20/2024, the patient continues to be febrile with a temperature of 101.9 9 F this morning the patient is on 2 L nasal oxygen and breathing comfortably, the Pt denies having any chest pain or cough, the patient denies having any abdominal pain no vomiting or any diarrhea has been reported by the nursing staff. Patient white count 6.7, creatinine 1.68, CT abdominal pelvis did shows right- sided abdominal wall masses concerning for possible metastatic disease Objective - Vital Signs Vital signs: Vital Signs Temp 101.9 F H 08/20/24 07:29 Pulse 102 H 08/20/24 07:29 Resp 19 08/20/24 07:29 BP 173/65 08/20/24 07:29 Pulse Ox 93 L 08/20/24 07:29 FiO2 Intake & Output 08/19/24 08/20/24 08/20/24 18:59 06:59 18:59 Intake Total 1320 Output Total 1200 1200 Balance 120 -1200 Intake: Oral 1320 Output: Urine 1200 1200 Other: Voiding Method Indwelling Catheter Indwelling Catheter # Bowel Movements 2 2 - Exam GENERAL DESCRIPTION: An elderly male lying in bed in no distress RESPIRATORY SYSTEM: Unlabored breathing , decreased breath sounds at bases HEART: S1 S2 regular rate and rhythm , ABDOMEN: Soft , no tenderness EXTREMITIES: No edema feet - Labs CBC & Chem 7: 08/20/24 22:15 08/21/24 14:02 Labs: Abnormal Lab Results - Last 24 Hours (Table) 08/19/24 08/19/24 08/19/24 Range/Units 01:00 17:07 20:27 RBC (4.30-5.90) m/uL Hgb (13.0-17.5) gm/dL Hct (39.0-53.0) % Plt Count (150-450) k/uL Chloride (98-107) mmol/L Carbon Dioxide (22-30) mmol/L BUN (9-20) mg/dL Creatinine (0.66-1.25) mg/dL Glucose (74-99) mg/dL POC Glucose (mg/dL) 167 H 159 H (70-110) mg/dL Calcium (8.4-10.2) mg/dL AST (17-59) U/L ALT (4-49) U/L Creatine Kinase (55-170) U/L Total Protein (6.3-8.2) g/dL Albumin (3.5-5.0) g/dL Procalcitonin 1.02 H (0.02-0.50) ng/mL 08/20/24 08/20/24 08/20/24 Range/Units 01:41 04:33 04:33 RBC 4.09 L (4.30-5.90) m/uL Hgb 12.2 L (13.0-17.5) gm/dL Hct 37.6 L (39.0-53.0) % Plt Count 114 L (150-450) k/uL Chloride 111 H (98-107) mmol/L Carbon Dioxide 20 L (22-30) mmol/L BUN 25 H (9-20) mg/dL Creatinine 1.80 H (0.66-1.25) mg/dL Glucose 114 H (74-99) mg/dL POC Glucose (mg/dL) 133 H (70-110) mg/dL Calcium 6.6 L (8.4-10.2) mg/dL AST 149 H (17-59) U/L ALT 92 H (4-49) U/L Creatine Kinase 4300 H* (55-170) U/L Total Protein 5.5 L (6.3-8.2) g/dL Albumin 2.7 L (3.5-5.0) g/dL Procalcitonin (0.02-0.50) ng/mL 08/20/24 Range/Units 07:18 RBC (4.30-5.90) m/uL Hgb (13.0-17.5) gm/dL Hct (39.0-53.0) % Plt Count (150-450) k/uL Chloride (98-107) mmol/L Carbon Dioxide (22-30) mmol/L BUN (9-20) mg/dL Creatinine (0.66-1.25) mg/dL Glucose (74-99) mg/dL POC Glucose (mg/dL) 141 H (70-110) mg/dL Calcium (8.4-10.2) mg/dL AST (17-59) U/L ALT (4-49) U/L Creatine Kinase (55-170) U/L Total Protein (6.3-8.2) g/dL Albumin (3.5-5.0) g/dL Procalcitonin (0.02-0.50) ng/mL Microbiology - Last 24 Hours (Table) 08/17/24 00:00 Blood Culture - Preliminary Blood 08/18/24 11:25 Urine Culture - Final Urine,Catheterized Assessment and Plan (1) Fever, unknown origin Current Visit: Yes Status: Acute Priority: High Code(s): R50.9 - FEVER, UNSPECIFIED SNOMED Code(s): 8222495 Plan: 1patient with a fever in this patient who did have a history of renal cancer status post nephrectomy and has been on chemotherapy with the last chemo about 2 weeks before presentation to the hospital now with persistent fever patient did have a normal white count does not look toxic however did have a mildly elevated procalcitonin initially chest x-ray shows right lower lobe masslike opacity however repeat chest x-ray done yesterday did not show any acute abnormality with a question of fever related to his underlying malignancy versus possible intra-abdominal source as the patient was noted to be slightly tender on palpation 2-patient did have CT abdominal pelvis with oral contrast with evidence of right sided multiple abdominal masses concerning for metastatic disease which could be related to his renal cell carcinoma and possible etiology of his fever and his renal cell carcinoma is associated with a fever 3-patient to continue with Zosyn while waiting for the culture to finalize Dictation was produced using [employer] dictation software. please excuse any grammatical, word or spelling errors. Time with Patient: Less than 30
--- NOTE | 2024-08-21 16:00 | P.PN ---
Subjective Progress Note Date: 08/21/24 Principal diagnosis: Reason for follow-up is fever Patient is a 68-year-old male with a past medical history significant for diabetes mellitus hypertension hyperlipidemia DVT renal cell carcinoma with a last chemo about 2 weeks before presentation to the hospital with weakness did have a fever prompting this consultation. On today's evaluation that is 08/21/2024, Patient did have some improvement in his fever pattern with the temperature of 99.8 F this morning, the patient is on 1 L nasal oxygen is more awake alert he is breathing comfortably denies any chest pain or cough vomiting or diarrhea has been reported. Patient did have a creatinine of 1.59 no CBC was done today cultures so far negative Objective - Vital Signs Vital signs: Vital Signs Temp 99.5 F 08/21/24 11:55 Pulse 94 08/21/24 11:55 Resp 16 08/21/24 11:55 BP 149/62 08/21/24 11:55 Pulse Ox 94 L 08/21/24 11:55 FiO2 Intake & Output 08/20/24 08/21/24 08/21/24 18:59 06:59 18:59 Intake Total 2150 Output Total 600 2275 Balance 1550 -2275 Intake: Intake, IV Titration 1610 Amount Piperacillin-Tazobactam 3 50 .375 gm In Sodium Chloride 0.9% 100 ml @ 25 mls/hr IVPB Q8H [facility] Rx#: [id number] Sodium Chloride 0.9% 1, 1560 000 ml @ 130 mls/hr IV . Q7H42M [facility] Rx#:[id number] Oral 540 Output: Urine 600 2275 Uretheral (Bautista) 600 725 Other: Voiding Method Indwelling Catheter Diaper # Bowel Movements 2 3 - Exam GENERAL DESCRIPTION: An elderly male lying in bed in no distress RESPIRATORY SYSTEM: Unlabored breathing , decreased breath sounds at bases HEART: S1 S2 regular rate and rhythm , ABDOMEN: Soft , no tenderness EXTREMITIES: No edema feet - Labs CBC & Chem 7: 08/20/24 22:15 08/21/24 14:02 Labs: Abnormal Lab Results - Last 24 Hours (Table) 08/20/24 08/20/24 08/20/24 Range/Units 17:13 20:11 22:15 RBC (4.30-5.90) m/uL Hgb (13.0-17.5) gm/dL Hct (39.0-53.0) % Plt Count (150-450) k/uL Potassium (3.5-5.1) mmol/L Chloride (98-107) mmol/L Carbon Dioxide (22-30) mmol/L BUN (9-20) mg/dL Creatinine (0.66-1.25) mg/dL Glucose (74-99) mg/dL POC Glucose (mg/dL) 111 H 153 H (70-110) mg/dL Calcium (8.4-10.2) mg/dL AST (17-59) U/L ALT (4-49) U/L Alkaline Phosphatase (38-126) U/L Troponin I 0.484 H* (0.000-0.034) ng/mL Total Protein (6.3-8.2) g/dL Albumin (3.5-5.0) g/dL 08/20/24 08/20/24 08/21/24 Range/Units 22:15 22:15 04:06 RBC 3.49 L (4.30-5.90) m/uL Hgb 10.6 L (13.0-17.5) gm/dL Hct 31.5 L (39.0-53.0) % Plt Count 104 L (150-450) k/uL Potassium 3.4 L (3.5-5.1) mmol/L Chloride 111 H (98-107) mmol/L Carbon Dioxide 20 L (22-30) mmol/L BUN 22 H (9-20) mg/dL Creatinine 1.68 H (0.66-1.25) mg/dL Glucose 109 H (74-99) mg/dL POC Glucose (mg/dL) (70-110) mg/dL Calcium 6.2 L* (8.4-10.2) mg/dL AST 120 H (17-59) U/L ALT 82 H (4-49) U/L Alkaline Phosphatase 138 H (38-126) U/L Troponin I 0.366 H* (0.000-0.034) ng/mL Total Protein 5.1 L (6.3-8.2) g/dL Albumin 2.5 L (3.5-5.0) g/dL 08/21/24 Range/Units 14:02 RBC (4.30-5.90) m/uL Hgb (13.0-17.5) gm/dL Hct (39.0-53.0) % Plt Count (150-450) k/uL Potassium 3.4 L (3.5-5.1) mmol/L Chloride 110 H (98-107) mmol/L Carbon Dioxide 21 L (22-30) mmol/L BUN (9-20) mg/dL Creatinine 1.59 H (0.66-1.25) mg/dL Glucose (74-99) mg/dL POC Glucose (mg/dL) (70-110) mg/dL Calcium 6.5 L (8.4-10.2) mg/dL AST (17-59) U/L ALT (4-49) U/L Alkaline Phosphatase (38-126) U/L Troponin I (0.000-0.034) ng/mL Total Protein (6.3-8.2) g/dL Albumin (3.5-5.0) g/dL Microbiology - Last 24 Hours (Table) 08/19/24 01:13 Blood Culture - Preliminary Blood Assessment and Plan (1) Fever, unknown origin Current Visit: Yes Status: Acute Priority: High Code(s): R50.9 - FEVER, UNSPECIFIED SNOMED Code(s): 8510167 Plan: 1patient with a fever in this patient who did have a history of renal cancer status post nephrectomy and has been on chemotherapy with the last chemo about 2 weeks before presentation to the hospital now with persistent fever patient did have a normal white count does not look toxic however did have a mildly elevated procalcitonin initially chest x-ray shows right lower lobe masslike opacity however repeat chest x-ray done yesterday did not show any acute abnormality with a question of fever related to his underlying malignancy versus possible intra-abdominal source as the patient was noted to be slightly tender on palpation 2-patient did have CT abdominal pelvis with oral contrast with evidence of right sided multiple abdominal masses concerning for metastatic disease which could be related to his renal cell carcinoma and possible etiology of his fever and his renal cell carcinoma is associated with a fever 3-patient did have some improvement in the fever pattern may continue Zosyn empirically while inpatient Dictation was produced using [employer] dictation software. please excuse any grammatical, word or spelling errors. Time with Patient: Less than 30
--- NOTE | 2024-08-21 16:07 | P.PN ---
Subjective Progress Note Date: 08/21/24 Pt more alert today. Denies pain, SOB, CP. Denies n/v/d. Temp this morning 101.0. Continues on Zosyn Objective - Vital Signs Vital signs: Vital Signs Temp 99.8 F H 08/21/24 09:28 Pulse 95 08/21/24 07:21 Resp 16 08/21/24 07:21 BP 158/66 08/21/24 07:21 Pulse Ox 97 08/21/24 07:50 FiO2 Intake & Output 08/20/24 08/21/24 08/21/24 18:59 06:59 18:59 Intake Total 2150 Output Total 600 2275 Balance 1550 -2275 Intake: Intake, IV Titration 1610 Amount Piperacillin-Tazobactam 3 50 .375 gm In Sodium Chloride 0.9% 100 ml @ 25 mls/hr IVPB Q8H [facility] Rx#: [id number] Sodium Chloride 0.9% 1, 1560 000 ml @ 130 mls/hr IV . Q7H42M [facility] Rx#:[id number] Oral 540 Output: Urine 600 2275 Uretheral (Bautista) 600 725 Other: Voiding Method Indwelling Catheter Diaper # Bowel Movements 2 3 - Constitutional General appearance: Present: no acute distress - EENT Eyes: Present: anicteric sclerae, EOMI ENT: Present: hearing grossly normal - Respiratory Details: breathing is even and unlabored - Cardiovascular Details: skin warm and dry - Gastrointestinal General gastrointestinal: Present: soft. Absent: tenderness - Integumentary Integumentary: Absent: cyanotic - Musculoskeletal Musculoskeletal: Present: generalized weakness - Psychiatric Psychiatric: Present: A&O x's 3 - Labs CBC & Chem 7: 08/20/24 22:15 08/21/24 14:02 Labs: Abnormal Lab Results - Last 24 Hours (Table) 08/20/24 08/20/24 08/20/24 Range/Units 17:13 20:11 22:15 RBC (4.30-5.90) m/uL Hgb (13.0-17.5) gm/dL Hct (39.0-53.0) % Plt Count (150-450) k/uL Potassium (3.5-5.1) mmol/L Chloride (98-107) mmol/L Carbon Dioxide (22-30) mmol/L BUN (9-20) mg/dL Creatinine (0.66-1.25) mg/dL Glucose (74-99) mg/dL POC Glucose (mg/dL) 111 H 153 H (70-110) mg/dL Calcium (8.4-10.2) mg/dL AST (17-59) U/L ALT (4-49) U/L Alkaline Phosphatase (38-126) U/L Troponin I 0.484 H* (0.000-0.034) ng/mL Total Protein (6.3-8.2) g/dL Albumin (3.5-5.0) g/dL 08/20/24 08/20/24 08/21/24 Range/Units 22:15 22:15 04:06 RBC 3.49 L (4.30-5.90) m/uL Hgb 10.6 L (13.0-17.5) gm/dL Hct 31.5 L (39.0-53.0) % Plt Count 104 L (150-450) k/uL Potassium 3.4 L (3.5-5.1) mmol/L Chloride 111 H (98-107) mmol/L Carbon Dioxide 20 L (22-30) mmol/L BUN 22 H (9-20) mg/dL Creatinine 1.68 H (0.66-1.25) mg/dL Glucose 109 H (74-99) mg/dL POC Glucose (mg/dL) (70-110) mg/dL Calcium 6.2 L* (8.4-10.2) mg/dL AST 120 H (17-59) U/L ALT 82 H (4-49) U/L Alkaline Phosphatase 138 H (38-126) U/L Troponin I 0.366 H* (0.000-0.034) ng/mL Total Protein 5.1 L (6.3-8.2) g/dL Albumin 2.5 L (3.5-5.0) g/dL Microbiology - Last 24 Hours (Table) 08/19/24 01:13 Blood Culture - Preliminary Blood - Imaging and Cardiology CT scan - abdomen: report reviewed CT scan - pelvis: report reviewed Assessment and Plan (1) Renal cell carcinoma Current Visit: Yes Status: Acute Priority: High Code(s): C64.9 - MALIGNANT NEOPLASM OF UNSP KIDNEY, EXCEPT RENAL PELVIS SNOMED Code(s): 003339214 (2) WU (acute kidney injury) Current Visit: Yes Status: Acute Priority: High Code(s): N17.9 - ACUTE KIDNEY FAILURE, UNSPECIFIED SNOMED Code(s): 01874698 (3) Rhabdomyolysis Current Visit: Yes Status: Acute Priority: High Code(s): M62.82 - RHABDOMYOLYSIS SNOMED Code(s): 043232154 (4) Fever, unknown origin Current Visit: Yes Status: Acute Priority: High Code(s): R50.9 - FEVER, UNSPECIFIED SNOMED Code(s): 7957073 Plan: Rhabdomyelosis -Patient was seen in the office last week after a fall, it is suspected he laid on the floor for about 12 hours. He was very weak and could not stand -Pt was hydrated in ofc. He did feel better after, little stronger. Labs were checked, CK was significantly elevated at greater than 5000, renal function ordered STAT but results were not returned before the CK results so, patient was sent into the hospital for further fluids, monitoring and treatment of the same. -CK continues to be significantly elevated. Renal function is improving Metastatic renal cell carcinoma -Patient is currently on treatment, status post first cycle dual immunotherapy. -CBC is not significant for chemotherapy toxicity. -Treatment will continue based on his recovery from his current condition -Fever of unknown origin -Patient has been having fevers since just after admit, with no resolution of fever pattern. -Infectious disease has been consulted and is now following. -Pancultures negative thus far. Continues on Zosyn -CT of the abdomen and pelvis without contrast was ordered by ID to assess for abdominal discomfort, diarrhea. Scan showing mulitple soft tissue densities in the right abdomen. Oval density within the posterior right lung base. Left inguinal hernia. 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 Loops of bowel within abdomen and pelvis are normal.
[2024-08-21 17:05] LABS: Glucose,Whole Blood 101 mg/dL (70-110)
--- NOTE | 2024-08-21 17:57 | P.PN ---
Subjective Patient is seen for follow-up for acute kidney injury. Patient was noted to have significant urine retention of about 800 mL and Bautista catheter was reinserted. Renal function has improved with serum creatinine down to 1.5 mg/dL. Objective - Vital Signs Vital signs: Vital Signs Temp 99.5 F 08/21/24 11:55 Pulse 94 08/21/24 11:55 Resp 16 08/21/24 11:55 BP 149/62 08/21/24 11:55 Pulse Ox 94 L 08/21/24 11:55 FiO2 Intake & Output 08/20/24 08/21/24 08/21/24 18:59 06:59 18:59 Intake Total 2150 Output Total 600 2275 900 Balance 1550 -2275 -900 Intake: Intake, IV Titration 1610 Amount Piperacillin-Tazobactam 3 50 .375 gm In Sodium Chloride 0.9% 100 ml @ 25 mls/hr IVPB Q8H [facility] Rx#: [id number] Sodium Chloride 0.9% 1, 1560 000 ml @ 130 mls/hr IV . Q7H42M [facility] Rx#:[id number] Oral 540 Output: Urine 600 2275 900 Uretheral (Bautista) 600 725 Other: Voiding Method Indwelling Catheter Diaper Diaper Indwelling Catheter # Bowel Movements 2 3 1 - Exam Patient is comfortable. No acute distress. Appears euvolemic. Examination of the heart S1 and S2 Examination of the lungs bilateral breath sounds are heard Abdomen is soft nontender Examination of lower extremity shows no evidence of edema. - Labs CBC & Chem 7: 08/20/24 22:15 08/21/24 14:02 Labs: Abnormal Lab Results - Last 24 Hours (Table) 08/20/24 08/20/24 08/20/24 Range/Units 20:11 22:15 22:15 RBC 3.49 L (4.30-5.90) m/uL Hgb 10.6 L (13.0-17.5) gm/dL Hct 31.5 L (39.0-53.0) % Plt Count 104 L (150-450) k/uL Potassium (3.5-5.1) mmol/L Chloride (98-107) mmol/L Carbon Dioxide (22-30) mmol/L BUN (9-20) mg/dL Creatinine (0.66-1.25) mg/dL Glucose (74-99) mg/dL POC Glucose (mg/dL) 153 H (70-110) mg/dL Calcium (8.4-10.2) mg/dL AST (17-59) U/L ALT (4-49) U/L Alkaline Phosphatase (38-126) U/L Troponin I 0.484 H* (0.000-0.034) ng/mL Total Protein (6.3-8.2) g/dL Albumin (3.5-5.0) g/dL 08/20/24 08/21/24 08/21/24 Range/Units 22:15 04:06 14:02 RBC (4.30-5.90) m/uL Hgb (13.0-17.5) gm/dL Hct (39.0-53.0) % Plt Count (150-450) k/uL Potassium 3.4 L 3.4 L (3.5-5.1) mmol/L Chloride 111 H 110 H (98-107) mmol/L Carbon Dioxide 20 L 21 L (22-30) mmol/L BUN 22 H (9-20) mg/dL Creatinine 1.68 H 1.59 H (0.66-1.25) mg/dL Glucose 109 H (74-99) mg/dL POC Glucose (mg/dL) (70-110) mg/dL Calcium 6.2 L* 6.5 L (8.4-10.2) mg/dL AST 120 H (17-59) U/L ALT 82 H (4-49) U/L Alkaline Phosphatase 138 H (38-126) U/L Troponin I 0.366 H* (0.000-0.034) ng/mL Total Protein 5.1 L (6.3-8.2) g/dL Albumin 2.5 L (3.5-5.0) g/dL Microbiology - Last 24 Hours (Table) 08/19/24 01:13 Blood Culture - Preliminary Blood Assessment and Plan Assessment: 1. Chronic kidney disease stage IV with baseline creatinine 2.1-2.4. Serum creatinine at 1.5 today. Etiology is solitary kidney and nephrosclerosis. Renal US no hydronephrosis. 2. Status post right nephrectomy. 3. Rhabdomyolysis secondary to fall and immobility. CK 3673-->5085 > 4300 4. Diabetes mellitus. 5. Lung malignancy maintained on chemotherapy outpatient. Also concern for metastatic disease based on PET scan done June 07, 2024. Oncology consulted. 6. Metabolic acidosis secondary to acute kidney injury and IV fluids. 7. Urinary retention, status post reinsertion of Bautista catheter on 08/21/2024 Plan: Continue IV fluids. Decrease rate. Continue with Bautista catheter Repeat labs in a.m.
[2024-08-21 20:12] LABS: Glucose,Whole Blood 223 mg/dL (70-110)
--- NOTE | 2024-08-22 06:11 | P.PN ---
Subjective Progress Note Date: 08/21/24 HISTORY OF PRESENT ILLNESS: 68-year-old with active medical history of type 2 diabetes, previous history of coagulopathy with deep venous thrombosis and pulmonary embolism, multiple cancer including skin cancer, lymphoma, and right-sided renal cell carcinoma postresection who also known to have stage III chronic kidney disease have chronic arthralgia, chronic neuropathy, history of gout and hyperlipidemia who also has history of arrhythmia. He was seen and evaluated few months ago for left middle finger growth initially looks like this is a form like gout and that being sent to see Dr. Palma hand specialist who apparently did further more testing and determined this is probably metastatic cancer from most likely the kidney ended up sending patient to see Ortho oncology arrangement for PET scan was done and found finding consistent with metastasis to the right middle lobe along with the left tibia and left middle finger was diagnosed as an advanced stage metastatic renal cell carcinoma the patient is dealing with the consequences and complication of his advanced cancer has been seen oncology and start chemotherapy. The patient has been quite weak and tired he also had multi medical problem he does not drive because they are to be legally blind, has been having more trouble with balance and gait. Apparently his sister will check on him a regular basis found him on the floor of his bathroom after he fell without remembering what happened exactly and was on the floor for over 10 hours she called EMS to help her out to put him in her car and drove him to his oncologist office where was seen and evaluated laboratory tests were done determined he is to be on more kidney failure than expected was sent to the emergency department at the point where was seen his CK was 3673 kidney function is much worse with GFR down to 26. Patient was started on hydration Admit to the hospital will consult nephrology. Testing including CAT scan of the brain was performed which shows mild generalized cerebral atrophy with no acute intracranial hemorrhage, pelvic x-ray showed no obvious displaced fracture through the exam very limited as a lower femoral neck is obscured by rotated hip position and the right greater trochanteric is cut off of the image. Also chest x-ray showed COPD with 4.3 cm mass at the basilar of the right lower lobe which spotted from before w ith his metastatic renal cell CA. Patient still slightly bit confused and not acting himself still not feeling well not able to ambulate walk or put any pressure 08/17/2024: He has done better today CK still at 3673: Creatinine is down to 2.3 with bun of 46 and GFR of 30 continue to watch blood sugar level more carefully, he was seen nephrology and agreed to maintain bicarbonate drip 0 insert Bautista catheter watch urine output and add Flomax for better compliance and less u rinary retention. Renal ultrasound was ordered report as right-sided nephrectomy change with no sign of obstruction. Blood pressure still mildly elevated at 155/55 with the change in medicine currently remain on amlodipine 10, will try to add some hydralazine on demand to keep systolic blood pressure below 140 08/18/2024: Patient is slightly bit confused, his numbers are slightly better today with his CK little bit higher at 5085 but creatinine down to 2.1 with GFR at 33, low-grade anemia, still having low-grade temperature not a clear etiology UA and chest x-ray are negative so far. This is can be tumor fever without having to find any acute active infection. Mobility significantly decreased patient is almost bedridden require help. Urine output still good currently. Continue aggressive hydration, still seen nephrology, will continue PT OT and patient most likely require to go to subacute rehab. 08/19/2024: Patient continues to suffer from fever and chills his rhabdomyolysis has improved some kidney function remained the same with GFR 31 patient still seen nephrology potassium is up to 3.2 from yesterday no major change with his h emoglobin. Procalcitonin was done again today and was slightly with elevated patient fever and chills continue Zosyn for now for gram-negative coverage either Zosyn or cefepime will be a good idea will consult infectious disease for possible further workup needed his temperature might be tumor fever mostly more than an infection based specially with the current cancer and metastasis he has. Sadly another possibility for his fever can be obstructive pneumonitis from the tumor exist in the right side of his lung causing problem. Patient is very debilitated not been able to ambulate or walk he is bedridden require further and more help at this point even when he is ready to leave the hospital is probably require either inpatient rehab with sadly if he does he cannot do any chemotherapy or he might go to inpatient rehab which again need to stop his chemotherapy till he is done. 08/20/2024: He is feeling slightly better continue to run fever with chills no absolute explanation with finding consistent with abscess but he has masslike effect in the abdominal cavity consistent with his metastasis from renal cell carcinoma, also procalcitonin was elevated indicating infection and patient remain on Zosyn at this point. Still been treated for obstructive pneumonitis which probably good diagnosis at this point specially with the mass in the right lower lobe in his lung. Kidney function is much better with GFR up his creatinine is down to 1.8 with continue hydration still seen nephrology and his rhabdomyolysis has improved significantly. In regard of his mobility and activity he is still really has limited activity almost bedridden require more help continue physical therapy and hopefully prepare for sometime in the next 24 to 48 hours to go into rehab. Patient is stable and doing well. 08/21/2024: Overall patient is not doing well continue to run high temperature despite the current management no positive culture was found so not quite sure that this is tumor fever or not with his opacification in the right hilar area can create an obstructive pneumonitis which is likely and probably the only thing make sense as an infection base. Microbiology culture remain negative, white blood cell is not that high in the first place the patient is still look toxic and look critically ill. I contacted the guardian who is the sister Aleyda after talking to Ariel about his CODE STATUS he agreed he has addressed this with his sister and when his sister to help him make that decision all tried to her place with DUTY ENGINEER and give her all this information decided logically to make patient DO NOT RESUSCITATE do medical management only no intubation or mechanical ventilation or resuscitation. Patient still seen infectious disease, nephrology, and oncology kidney function has been stable to some degree but continued to have significant elevated CK despite the quite hydration at this point and still have mild sign and symptom of of rhabdomyolysis and this is probably from the immobility patient has mostly. Also the lung metastasis with current treatment is probably what caused the temperature in the first place. He is not able to void reinsertion of the Bautista catheter was placed and continue to watch symptoms carefully. Also 1 more point addressed with the sister especially with her brother being quite sick at this point we might come with conclusion at some point the patient benefits on palliative care and hospice to be prepared and she apparently is quite ready for that step and she feels probably we are almost.. REVIEW OF SYSTEMS: CONSTITUTIONAL: Well-developed slightly confused no acute respiratory distress. EYES: No icterus sclerae, no conjunctivitis. EARS, NOSE, MOUTH, THROAT, and FACE: No sore throat, lymphadenopathy, carotid bruits or deformity. RESPIRATORY: Mild shortness of breath CARDIOVASCULAR: No CP, slight palpitation no angina. GASTROINTESTINAL: No Abd pain, nausea no vomiting no diarrhea slight constipation no active GI bleed at this point. GENITOURINARY: Negative for Hematuria or UTI, no kidney stones. Renal cell CA with metastasis no kidney stones or hematuria. INTEGUMENT/BREAST: Generalized arthralgia with muscle and joint pain and mostly problem with the left middle finger and left medial aspect of the tibia on the left side. HEMATOLOGIC/LYMPHATIC: Chronic anemia. MUSCULOSKELTAL: Generalized arthralgia and myalgia NEURLOGICAL: Slight altered mental status with? Of dizziness lightheadedness and fatigue with no motor deficit. BEHAVIORAL/PSYCH: Negative. ENDOCRINE: Negative. PHYSICAL EXAMINATION: General Appearance: Alert, cooperative, no distress, appears stated age. Neck HEENT: Supple, no lymphadenopathy, no thyroid enlargement, no carotid bruits. Lungs: Decreased breath sound bilaterally with fine rhonchi positive expiratory wheezes no crackles. Slight discomfort on the chest wall area. Slight discomfort in the chest wall area. Heart: Regular rate and rhythm, S1, S2 normal, no murmur, rub or gallop. Back: Slight discomfort lumbar spine no sign of bruise. Abdomen: Soft positive bowel sound no organomegaly slight discomfort in the mid lower abdominal region area no rebound or rigidity. Extremities: Left middle finger still have significant swelling as a fusiform also has slight swelling on the medial aspect of the left tibia trace edema with generalized arthralgia. Pulses: 2+ and symmetric. Skin: Skin color, scar tissue of skin cancer in the facial area. Neurologic: Alert oriented with slight confusion cranial nerves II through XII intact, positive generalized weakness positive normal balance and gait. ASSESSMENT AND PLAN: _Fever and chills with infection most likely obstructive pneumonitis with pneumonia behind the right hilar tumor causing more problem continue antibiotic for now. _Acute kidney injury secondary to severe dehydration and rhabdomyolysis, slightly bit better. _Acute rhabdomyolysis: Slight drop in CK level but still not normal this is probably from immobility mostly. _Fever and chills: All cultures negative continue to treat patient for gram- negative's which is obstructive pneumonia as well Zosyn still a good coverage at this point. _Stage IV kidney cancer with metastasis has been seen oncology on chemotherapy which will consult oncology at this point hold chemotherapy temporary till he is hydrated and rhabdomyolysis clear. _Thrombocytopenia: Most likely related to chemotherapy and infection based again continue current management plan repeat CBC tomorrow. _Few masses in the abdominal cavity most likely metastasis from renal cell CA. _Chronic kidney disease with stage III A has been much worse with his rhabdomyolysis at this point. _Type 2 diabetes: Remain on Prandin 1 mg twice a day, Farxiga 10 mg daily, Toujeo 35 units daily continue Accu-Chek sliding scales coverage will watch symptoms carefully. Blood sugar has been much better so far in the low 100s. _Hypertension: Remain on amlodipine/benazepril 10/40 mg a day will titrate dose and add probably smaller dose of hydralazine if needed. _Hyperlipidemia: Remain on atorvastatin 40 mg a day continue medication. _Chronic edema with mild chronic diastolic heart failure, has been on benazepril and furosemide. _Previous history of lymphoma postchemotherapy has been in remission._ _BPH: Watch for any urinary retention started on Flomax. Debility: CODE STATUS was changed to DO NOT RESUSCITATE, patient clinically is not doing well is very toxic clinically critically longer-term sick his CODE STATUS was changed and not resuscitate and furthermore in the next day or 2 family might decide to do palliative or hospice care. Objective - Vital Signs Vital signs: Vital Signs Temp 98.6 F 08/21/24 02:00 Pulse 86 08/21/24 02:00 Resp 16 08/21/24 02:00 BP 176/70 08/21/24 02:00 Pulse Ox 96 08/21/24 02:00 FiO2 Intake & Output 08/20/24 08/20/24 08/21/24 06:59 18:59 06:59 Intake Total 2150 Output Total 5838 976 0231 Balance -1200 1550 -1725 Intake: Intake, IV Titration 1610 Amount Piperacillin-Tazobactam 3 50 .375 gm In Sodium Chloride 0.9% 100 ml @ 25 mls/hr IVPB Q8H [facility] Rx#: [id number] Sodium Chloride 0.9% 1, 1560 000 ml @ 130 mls/hr IV . Q7H42M [facility] Rx#:[id number] Oral 540 Output: Urine 5175 378 0845 Uretheral (Bautista) 600 725 Other: Voiding Method Indwelling Catheter Indwelling Catheter Diaper # Bowel Movements 2 2 3 - Labs CBC & Chem 7: 08/20/24 22:15 08/21/24 14:02 Labs: Abnormal Lab Results - Last 24 Hours (Table) 08/20/24 08/20/24 08/20/24 Range/Units 04:33 07:18 17:13 RBC (4.30-5.90) m/uL Hgb (13.0-17.5) gm/dL Hct (39.0-53.0) % Plt Count (150-450) k/uL Potassium (3.5-5.1) mmol/L Chloride 111 H (98-107) mmol/L Carbon Dioxide 20 L (22-30) mmol/L BUN 25 H (9-20) mg/dL Creatinine 1.80 H (0.66-1.25) mg/dL Glucose 114 H (74-99) mg/dL POC Glucose (mg/dL) 141 H 111 H (70-110) mg/dL Calcium 6.6 L (8.4-10.2) mg/dL AST 149 H (17-59) U/L ALT 92 H (4-49) U/L Alkaline Phosphatase (38-126) U/L Creatine Kinase 4300 H* (55-170) U/L Troponin I (0.000-0.034) ng/mL Total Protein 5.5 L (6.3-8.2) g/dL Albumin 2.7 L (3.5-5.0) g/dL 08/20/24 08/20/24 08/20/24 Range/Units 20:11 22:15 22:15 RBC 3.49 L (4.30-5.90) m/uL Hgb 10.6 L (13.0-17.5) gm/dL Hct 31.5 L (39.0-53.0) % Plt Count 104 L (150-450) k/uL Potassium (3.5-5.1) mmol/L Chloride (98-107) mmol/L Carbon Dioxide (22-30) mmol/L BUN (9-20) mg/dL Creatinine (0.66-1.25) mg/dL Glucose (74-99) mg/dL POC Glucose (mg/dL) 153 H (70-110) mg/dL Calcium (8.4-10.2) mg/dL AST (17-59) U/L ALT (4-49) U/L Alkaline Phosphatase (38-126) U/L Creatine Kinase (55-170) U/L Troponin I 0.484 H* (0.000-0.034) ng/mL Total Protein (6.3-8.2) g/dL Albumin (3.5-5.0) g/dL 08/20/24 08/21/24 Range/Units 22:15 04:06 RBC (4.30-5.90) m/uL Hgb (13.0-17.5) gm/dL Hct (39.0-53.0) % Plt Count (150-450) k/uL Potassium 3.4 L (3.5-5.1) mmol/L Chloride 111 H (98-107) mmol/L Carbon Dioxide 20 L (22-30) mmol/L BUN 22 H (9-20) mg/dL Creatinine 1.68 H (0.66-1.25) mg/dL Glucose 109 H (74-99) mg/dL POC Glucose (mg/dL) (70-110) mg/dL Calcium 6.2 L* (8.4-10.2) mg/dL AST 120 H (17-59) U/L ALT 82 H (4-49) U/L Alkaline Phosphatase 138 H (38-126) U/L Creatine Kinase (55-170) U/L Troponin I 0.366 H* (0.000-0.034) ng/mL Total Protein 5.1 L (6.3-8.2) g/dL Albumin 2.5 L (3.5-5.0) g/dL Microbiology - Last 24 Hours (Table) 08/19/24 01:13 Blood Culture - Preliminary Blood 08/17/24 00:00 Blood Culture - Preliminary Blood
[2024-08-22 07:06] LABS: Glucose,Whole Blood 150 mg/dL (70-110)
--- NOTE | 2024-08-22 11:48 | P.PN ---
Subjective Progress Note Date: 08/22/24 Reason for Consult (text): Rhythm change History of present illness: This is a 68-year-old male with past medical history of renal cell carcinoma currently on immunotherapy, DVT and pulmonary embolism, lymphoma, chronic kidney disease stage III, gout, hyperlipidemia, hypertension, diabetes mellitus type 2. Patient does not follow with a raw hide trimmer. We have been asked to evaluate the patient for change in rhythm. Patient was admitted on 08/16 and has been seen by multiple consultants and treated for acute rhabdomyolysis, acute kidney injury, stage IV kidney cancer, urinary retention, ongoing fever. Patient presented to the hospital due to weakness after he was found on the ground, lost his balance and caused him to fall without head injury or loss of consciousness. Patient apparently had a fall on Tuesday evening and was found on morning. Upon review of telemetry, patient had nonsustained ventricular tachycardia, 6 beat on the evening of 08/20 and 8 beat on 08/19 with additional shorter episodes. At the time, patient was febrile, diaphoretic. Source of fever is being investigated by infectious disease. Patient denies any recent medication changes, no abdominal pain no chest pain. He denies shortness of breath. He has not been out of bed since he has been hospitalized. He denies any blood in his stools. Blood pressure 158/66, heart rate 80s to 90s, temperature max 102.9 axillary, pulse ox 97% on 2 L nasal cannula. EK/10: Sinus rhythm Chest x-ray: Laboratory studies: WBC 6.7, hemoglobin 10.6, platelet count 104. Sodium 139, potassium 3.4, CO2 20, BUN 22 creatinine 1.68. CK 4300. Troponins 0.484 and 0.366. Lactic acid 1.2. proBNP 4660. Procalcitonin 1.02. C. difficile toxin not detected. Influenza A, influenza B, RSV, COVID-19 not detected. Home cardiac medications: Amlodipine/benazepril 10-40 mg 1 daily, atorvastatin 40 mg daily, Farxiga 10 mg daily, Lasix 40 mg on Wednesdays. 08/22 Patient is seen and examined. Sister is at the bedside receiving hospice information. Blood pressure 162/69, heart rate 87, pulse ox 95% on 2 L nasal cannula. Echocardiogram reveals EF of 50%, no MR, moderate AR, trace TR. Ascending aortic aneurysm measuring 5 cm. Reviewed results of the echoca rdiogram with patient's sister. No plan at this time for any further cardiac workup. Physical examination: Gen: This is a 68-year-old male in no acute distress VS: reviewed HEENT: Head is atraumatic, normocephalic. Pupils equal, round. Sclerae is anicteric. NECK: Supple. No JVD. LUNGS: Clear to auscultation. No wheezes or rhonchi. No intercostal retractions. HEART: Regular rate and rhythm. No murmur. ABDOMEN: Soft No tenderness. EXTREMITIES: Minimal pedal edema. No calf tenderness. NEUROLOGICAL: Patient is awake, alert and oriented x3. Assessment: Nonsustained ventricular tachycardia Elevated troponins most likely secondary to sepsis, metastatic cancer, type II VA Chronic diastolic heart failure, lower extremity edema most likely due to third spacing from hypoproteinemia Febrile illness unclear etiology Metastatic renal cell carcinoma DVT and pulmonary embolism History of lymphoma Chronic kidney disease stage IV Hypertension Hyperlipidemia Diabetes mellitus type 2 Plan: Continue current cardiac medications: Amlodipine 10 mg daily, atorvastatin 40 mg daily Continue patient on metoprolol tartrate 25 mg twice daily and aspirin 81 mg daily Cardiology will sign off this case and follow on an as-needed basis. Please reconsult for any new concerns. Nurse practitioner note has been reviewed, I agree with documented findings and plan of care. Patient was seen and examined. Objective - Vital Signs Vital signs: Vital Signs Temp 98.0 F 08/22/24 07:06 Pulse 87 08/22/24 07:06 Resp 17 08/22/24 07:06 BP 162/69 08/22/24 07:06 Pulse Ox 95 08/22/24 07:06 FiO2 Intake & Output 08/21/24 08/22/24 08/22/24 18:59 06:59 18:59 Intake Total 240 Output Total 900 925 Balance -900 -685 Intake: Oral 240 Output: Urine 900 925 Other: Voiding Method Diaper Indwelling Catheter # Bowel Movements 1 1 - Labs CBC & Chem 7: 08/20/24 22:15 08/21/24 14:02 Labs: Abnormal Lab Results - Last 24 Hours (Table) 08/21/24 08/21/24 08/22/24 Range/Units 14:02 20:11 07:05 Potassium 3.4 L (3.5-5.1) mmol/L Chloride 110 H (98-107) mmol/L Carbon Dioxide 21 L (22-30) mmol/L Creatinine 1.59 H (0.66-1.25) mg/dL POC Glucose (mg/dL) 223 H 150 H (70-110) mg/dL Calcium 6.5 L (8.4-10.2) mg/dL Microbiology - Last 24 Hours (Table) 08/17/24 00:00 Blood Culture - Final Blood 08/19/24 01:13 Blood Culture - Preliminary Blood
[2024-08-22 12:11] LABS: Glucose,Whole Blood 164 mg/dL (70-110)
--- NOTE | 2024-08-22 13:32 | P.PN ---
Subjective Patient is seen for follow-up for acute kidney injury. Patient was noted to have significant urine retention of about 800 mL and Bautista catheter was reinserted. Renal function has improved with serum creatinine down to 1.5 mg/dL. Family has decided to proceed with hospice care. Objective - Vital Signs Vital signs: Vital Signs Temp 98.0 F 08/22/24 07:06 Pulse 87 08/22/24 07:06 Resp 17 08/22/24 07:06 BP 162/69 08/22/24 07:06 Pulse Ox 95 08/22/24 07:06 FiO2 Intake & Output 08/21/24 08/22/24 08/22/24 18:59 06:59 18:59 Intake Total 240 Output Total 900 925 Balance -900 -685 Intake: Oral 240 Output: Urine 900 925 Other: Voiding Method Diaper Indwelling Catheter Indwelling Catheter # Bowel Movements 1 1 - Exam Patient is comfortable. No acute distress. Appears euvolemic. Examination of lower extremity shows 1+ edema left leg with weakness of left arm and leg - Labs CBC & Chem 7: 08/20/24 22:15 08/21/24 14:02 Labs: Abnormal Lab Results - Last 24 Hours (Table) 08/21/24 08/21/24 08/22/24 Range/Units 14:02 20:11 07:05 Potassium 3.4 L (3.5-5.1) mmol/L Chloride 110 H (98-107) mmol/L Carbon Dioxide 21 L (22-30) mmol/L Creatinine 1.59 H (0.66-1.25) mg/dL POC Glucose (mg/dL) 223 H 150 H (70-110) mg/dL Calcium 6.5 L (8.4-10.2) mg/dL 08/22/24 Range/Units 12:10 Potassium (3.5-5.1) mmol/L Chloride (98-107) mmol/L Carbon Dioxide (22-30) mmol/L Creatinine (0.66-1.25) mg/dL POC Glucose (mg/dL) 164 H (70-110) mg/dL Calcium (8.4-10.2) mg/dL Microbiology - Last 24 Hours (Table) 08/19/24 01:13 Blood Culture - Preliminary Blood 08/17/24 00:00 Blood Culture - Final Blood Assessment and Plan Assessment: 1. Chronic kidney disease stage IV with baseline creatinine 2.1-2.4. Serum creatinine at 1.5. Etiology is solitary kidney and nephrosclerosis. Renal US no hydronephrosis. 2. Status post right nephrectomy. 3. Rhabdomyolysis secondary to fall and immobility. CK 3673-->5085 > 4300 4. Diabetes mellitus. 5. Lung malignancy maintained on chemotherapy outpatient. Also concern for metastatic disease based on PET scan done June 07, 2024. Oncology consulted. 6. Metabolic acidosis secondary to acute kidney injury and IV fluids. 7. Urinary retention, status post reinsertion of Bautista catheter on 08/21/2024 Plan: Family has decided to proceed with hospice care.
[2024-08-22 17:28] LABS: Glucose,Whole Blood 161 mg/dL (70-110)
[2024-08-22 18:56] VITALS: BP 147/65; PULSE 94; RESP 20; TEMP 98
--- NOTE | 2024-08-23 14:55 | P.PN ---
Subjective Progress Note Date: 08/22/24 Principal diagnosis: Reason for follow-up is fever Patient is a 68-year-old male with a past medical history significant for diabetes mellitus hypertension hyperlipidemia DVT renal cell carcinoma with a last chemo about 2 weeks before presentation to the hospital with weakness did have a fever prompting this consultation. On today's evaluation that is 08/22/2024, patient has been afebrile, patient is breathing comfortably and is currently on room air, patient denies having any significant cough no chest pain, patient denies nausea vomiting or diarrhea and no abdominal pain, no new symptoms. No new lab has been obtained today Objective - Vital Signs Vital signs: Vital Signs Temp 98.0 F 08/22/24 07:06 Pulse 87 08/22/24 07:06 Resp 17 08/22/24 07:06 BP 162/69 08/22/24 07:06 Pulse Ox 95 08/22/24 07:06 FiO2 Intake & Output 08/21/24 08/22/24 08/22/24 18:59 06:59 18:59 Intake Total 240 Output Total 900 925 Balance -900 -685 Intake: Oral 240 Output: Urine 900 925 Other: Voiding Method Diaper Indwelling Catheter Indwelling Catheter # Bowel Movements 1 1 - Exam GENERAL DESCRIPTION: An elderly male lying in bed in no distress RESPIRATORY SYSTEM: Unlabored breathing , decreased breath sounds at bases HEART: S1 S2 regular rate and rhythm , ABDOMEN: Soft , no tenderness EXTREMITIES: No edema feet - Labs CBC & Chem 7: 08/20/24 22:15 08/21/24 14:02 Labs: Abnormal Lab Results - Last 24 Hours (Table) 08/21/24 08/21/24 08/22/24 Range/Units 14:02 20:11 07:05 Potassium 3.4 L (3.5-5.1) mmol/L Chloride 110 H (98-107) mmol/L Carbon Dioxide 21 L (22-30) mmol/L Creatinine 1.59 H (0.66-1.25) mg/dL POC Glucose (mg/dL) 223 H 150 H (70-110) mg/dL Calcium 6.5 L (8.4-10.2) mg/dL 08/22/24 Range/Units 12:10 Potassium (3.5-5.1) mmol/L Chloride (98-107) mmol/L Carbon Dioxide (22-30) mmol/L Creatinine (0.66-1.25) mg/dL POC Glucose (mg/dL) 164 H (70-110) mg/dL Calcium (8.4-10.2) mg/dL Microbiology - Last 24 Hours (Table) 08/17/24 00:00 Blood Culture - Final Blood 08/19/24 01:13 Blood Culture - Preliminary Blood Assessment and Plan (1) Fever, unknown origin Status: Acute Priority: High Code(s): R50.9 - FEVER, UNSPECIFIED SNOMED Code(s): 8935114 Plan: 1patient with a fever in this patient who did have a history of renal cancer status post nephrectomy and has been on chemotherapy with the last chemo about 2 weeks before presentation to the hospital now with persistent fever patient did have a normal white count does not look toxic however did have a mildly elevated procalcitonin initially chest x-ray shows right lower lobe masslike opacity however repeat chest x-ray done yesterday did not show any acute abnormality with a question of fever related to his underlying malignancy versus possible intra-abdominal source as the patient was noted to be slightly tender on palpation 2-patient did have CT abdominal pelvis with oral contrast with evidence of right sided multiple abdominal masses concerning for metastatic disease which could be related to his renal cell carcinoma and possible etiology of his fever and his renal cell carcinoma is associated with a fever 3-patient did have resolution of his fever however family is planning for hospice which may be appropriate antibiotics can be safely discontinued. at the bedside questions answered Dictation was produced using [employer] dictation software. please excuse any grammatical, word or spelling errors. Time with Patient: Less than 30
--- NOTE | 2024-08-26 09:03 | P.DS ---
Providers Date of admission: 08/16/24 20:03 Attending physician: Major Sanchez Consults: 08/16/24 20:03 Consult Physician Routine Consulting Provider: Theo Rianes Consult Reason/Comments: jose antonio on ckd Do you want consulting provider notified?: Yes Consult Physician Routine Consulting Provider: Oneil Martinez Consult Reason/Comments: acute rhabdo, history of cancer Do you want consulting provider notified?: Yes 08/19/24 09:09 Consult Physician Routine Consulting Provider: Quin Chang Consult Reason/Comments: Fevere with ?? infection Do you want consulting provider notified?: Yes 08/20/24 22:06 Consult Physician Routine Consulting Provider: Duglas Kelsey Consult Reason/Comments: rhythm change Do you want consulting provider notified?: Yes, Notify in am Primary care physician: Major Sanchez [facility] Course: HISTORY OF PRESENT ILLNESS: 68-year-old with active medical history of type 2 diabetes, previous history of coagulopathy with deep venous thrombosis and pulmonary embolism, multiple cancer including skin cancer, lymphoma, and right-sided renal cell carcinoma postresection who also known to have stage III chronic kidney disease have chronic arthralgia, chronic neuropathy, history of gout and hyperlipidemia who also has history of arrhythmia. He was seen and evaluated few months ago for left middle finger growth initially looks like this is a form like gout and that being sent to see Dr. Palma hand specialist who apparently did further more testing and determined this is probably metastatic cancer from most likely the kidney ended up sending patient to see Ortho oncology arrangement for PET scan was done and found finding consistent with metastasis to the right middle lobe along with the left tibia and left middle finger was diagnosed as an advanced stage metastatic renal cell carcinoma the patient is dealing with the consequences and complication of his advanced cancer has been seen oncology and start chemotherapy. The patient has been quite weak and tired he also had multi medical problem he does not drive because they are to be legally blind, has been having more trouble with balance and gait. Apparently his sister will check on him a regular basis found him on the floor of his bathroom after he fell without remembering what happened exactly and was on the floor for over 10 hours she called EMS to help her out to put him in her car and drove him to his oncologist office where was seen and evaluated laboratory tests were done determined he is to be on more kidney failure than expected was sent to the emergency department at the point where was seen his CK was 3673 kidney function is much worse with GFR down to 26. Patient was started on hydration Admit to the hospital will consult nephrology. Testing including CAT scan of the brain was performed which shows mild generalized cerebral atrophy with no acute intracranial hemorrhage, pelvic x-ray showed no obvious displaced fracture through the exam very limited as a lower femoral neck is obscured by rotated hip position and the right greater trochanteric is cut off of the image. Also chest x-ray showed COPD with 4.3 cm mass at the basilar of the right lower lobe which spotted from before with his metastatic renal cell CA. Patient still slightly bit confused and not acting himself still not feeling well not able to ambulate walk or put any pressure 08/17/2024: He has done better today CK still at 3673: Creatinine is down to 2.3 with bun of 46 and GFR of 30 continue to watch blood sugar level more carefully, he was seen nephrology and agreed to maintain bicarbonate drip 0 insert Bautista catheter watch urine output and add Flomax for better compliance and less urinary retention. Renal ultrasound was ordered report as right-sided nephrectomy change with no sign of obstruction. Blood pressure still mildly elevated at 155/55 with the change in medicine currently remain on amlodipine 10, will try to add some hydralazine on demand to keep systolic blood pressure below 140 08/18/2024: Patient is slightly bit confused, his numbers are slightly better today with his CK little bit higher at 5085 but creatinine down to 2.1 with GFR at 33, low-grade anemia, still having low-grade temperature not a clear etiology UA and chest x-ray are negative so far. This is can be tumor fever without having to find any acute active infection. Mobility significantly decreased patient is almost bedridden require help. Urine output still good currently. Continue aggressive hydration, still seen nephrology, will continue PT OT and patient most likely require to go to subacute rehab. 08/19/2024: Patient continues to suffer from fever and chills his rhabdomyolysis has improved some kidney function remained the same with GFR 31 patient still seen nephrology potassium is up to 3.2 from yesterday no major change with his hemoglobin. Procalcitonin was done again today and was slightly with elevated patient fever and chills continue Zosyn for now for gram-negative coverage either Zosyn or cefepime will be a good idea will consult infectious disease for possible further workup needed his temperature might be tumor fever mostly more than an infection based specially with the current cancer and metastasis he has. Sadly another possibility for his fever can be obstructive pneumonitis from the tumor exist in the right side of his lung causing problem. Patient is very debilitated not been able to ambulate or walk he is bedridden require further and more help at this point even when he is ready to leave the hospital is probably require either inpatient rehab with sadly if he does he cannot do any chemotherapy or he might go to inpatient rehab which again need to stop his chemotherapy till he is done. 08/20/2024: He is feeling slightly better continue to run fever with chills no absolute explanation with finding consistent with abscess but he has masslike effect in the abdominal cavity consistent with his metastasis from renal cell carcinoma, also procalcitonin was elevated indicating infection and patient remain on Zosyn at this point. Still been treated for obstructive pneumonitis which probably good diagnosis at this point specially with the mass in the right lower lobe in his lung. Kidney function is much better with GFR up his creatinine is down to 1.8 with continue hydration still seen nephrology and his rhabdomyolysis has improved significantly. In regard of his mobility and activity he is still really has limited activity almost bedridden require more help continue physical therapy and hopefully prepare for sometime in the next 24 to 48 hours to go into rehab. Patient is stable and doing well. 08/21/2024: Overall patient is not doing well continue to run high temperature despite the current management no positive culture was found so not quite sure that this is tumor fever or not with his opacification in the right hilar area can create an obstructive pneumonitis which is likely and probably the only thing make sense as an infection base. Microbiology culture remain negative, white blood cell is not that high in the first place the patient is still look toxic and look critically ill. I contacted the guardian who is the sister Aleyda after talking to Ariel about his CODE STATUS he agreed he has addressed this with his sister and when his sister to help him make that decision all tried to her place with [employer] and give her all this information decided logically to make patient DO NOT RESUSCITATE do medical management only no intubation or mechanical ventilation or resuscitation. Patient still seen infectious disease, nephrology, and oncology kidney function has been stable to some degree but continued to have significant elevated CK despite the quite hydration at this point and still have mild sign and symptom of of rhabdomyolysis and this is probably from the immobility patient has mostly. Also the lung metastasis with current treatment is probably what caused the temperature in the first place. He is not able to void reinsertion of the Bautista catheter was placed and continue to watch symptoms carefully. Also 1 more point addressed with the sister especially with her brother being quite sick at this point we might come with conclusion at some point the patient benefits on palliative care and hospice to be prepared and she apparently is quite ready for that step and she feels probably we are almost.. 08/22/2024 Long talk with the family today the patient is quite bit symptomatic continue to have fever chills and overall not feeling well with worsening shortness of breath not been able to ambulate and walk his CK still mildly elevated. Had an advanced stage IV metastatic cancer to the lung with obstructive pneumonitis causing him to be quite symptomatic. When addressing the fact of end-of-life and his mortality family agree to meet with hospice and apparently after the meeting with hospice agreed to have him discharged home to the hospice house with hospice care. Patient will be discharged on 08/22/2024 on hospice. REVIEW OF SYSTEMS: CONSTITUTIONAL: Well-developed slightly confused no acute respiratory distress. EYES: No icterus sclerae, no conjunctivitis. EARS, NOSE, MOUTH, THROAT, and FACE: No sore throat, lymphadenopathy, carotid bruits or deformity. RESPIRATORY: Mild shortness of breath CARDIOVASCULAR: No CP, slight palpitation no angina. GASTROINTESTINAL: No Abd pain, nausea no vomiting no diarrhea slight constipation no active GI bleed at this point. GENITOURINARY: Negative for Hematuria or UTI, no kidney stones. Renal cell CA w ith metastasis no kidney stones or hematuria. INTEGUMENT/BREAST: Generalized arthralgia with muscle and joint pain and mostly problem with the left middle finger and left medial aspect of the tibia on the left side. HEMATOLOGIC/LYMPHATIC: Chronic anemia. MUSCULOSKELTAL: Generalized arthralgia and myalgia NEURLOGICAL: Slight altered mental status with? Of dizziness lightheadedness and fatigue with no motor deficit. BEHAVIORAL/PSYCH: Negative. ENDOCRINE: Negative. PHYSICAL EXAMINATION: General Appearance: Alert, cooperative, no distress, appears stated age. Neck HEENT: Supple, no lymphadenopathy, no thyroid enlargement, no carotid bruits. Lungs: Decreased breath sound bilaterally with fine rhonchi positive expiratory wheezes no crackles. Slight discomfort on the chest wall area. Slight discomfort in the chest wall area. Heart: Regular rate and rhythm, S1, S2 normal, no murmur, rub or gallop. Back: Slight discomfort lumbar spine no sign of bruise. Abdomen: Soft positive bowel sound no organomegaly slight discomfort in the mid lower abdominal region area no rebound or rigidity. Extremities: Left middle finger still have significant swelling as a fusiform also has slight swelling on the medial aspect of the left tibia trace edema with generalized arthralgia. Pulses: 2+ and symmetric. Skin: Skin color, scar tissue of skin cancer in the facial area. Neurologic: Alert oriented with slight confusion cranial nerves II through XII intact, positive generalized weakness positive normal balance and gait. ASSESSMENT AND PLAN: _Fever and chills with infection most likely obstructive pneumonitis with pneumonia behind the right hilar tumor causing more problem continue antibiotic for now. _Acute kidney injury secondary to severe dehydration and rhabdomyolysis, slightly bit better. _Acute rhabdomyolysis: Slight drop in CK level but still not normal this is probably from immobility mostly. _Fever and chills: All cultures negative continue to treat patient for gram- negative's which is obstructive pneumonia as well Zosyn still a good coverage at this point. _Stage IV kidney cancer with metastasis has been seen oncology on chemotherapy which will consult oncology at this point hold chemotherapy temporary till he is hydrated and rhabdomyolysis clear. _Thrombocytopenia: Most likely related to chemotherapy and infection based again continue current management plan repeat CBC tomorrow. _Few masses in the abdominal cavity most likely metastasis from renal cell CA. _Chronic kidney disease with stage III A has been much worse with his rhabdomyolysis at this point. _Type 2 diabetes: Remain on Prandin 1 mg twice a day, Farxiga 10 mg daily, Toujeo 35 units daily continue Accu-Chek sliding scales coverage will watch s ymptoms carefully. Blood sugar has been much better so far in the low 100s. _Hypertension: Remain on amlodipine/benazepril 10/40 mg a day will titrate dose and add probably smaller dose of hydralazine if needed. _Hyperlipidemia: Remain on atorvastatin 40 mg a day continue medication. _Chronic edema with mild chronic diastolic heart failure, has been on benazepril and furosemide. _Previous history of lymphoma postchemotherapy has been in remission._ _BPH: Watch for any urinary retention started on Flomax. Discussion: Patient continued to do quite poorly discussion with the family agreed to do hospice at this point patient be transferred today to either home on hospice and to the hospice house. Hospital course: He was hospitalized on 08/16/2024 was found on the floor of his bathroom after fall could not stand up and walk was extremely weak did not have any syncopal episode but was out for over 10 hours on the floor developed to have severe rhabdomyolysis and generalized weakness, EMS was called to the scene patient brought to the emergency department at [facility] his CK was quite elevated at 3673 with GFR 26 was severely dehydrated was started on hydration conservative care management patient developed to have fever chills and continue to be quite symptomatic even all his testing did not show any major intracranial hemorrhage or pelvic or hip fracture at the time that he had metastatic renal cell CVA with large area of 4.3 cm mass in the basilar area of the right side causing obstructive pneumonitis. His symptoms continue to be severe after hydration and conservative management his CK climb up to 5085 bun and creatinine continue to be elevated his mobility continue to be significantly decreased. Patient continued to run fever and chills all testing including culture failed to show any abnormality and that having abdomen pelvic scan along with chest scan none of which shows any major abnormality exception of a large mass in the right basilar area of the right lung along with possible obstructive pneumonitis. Patient was kept on IV antibiotic all along had seen pulmonary, infectious disease, oncology and nephrology continue current symptoms consistent with most likely obstructive pneumonitis along with tumor fever. Plan talk with the family about his mortality and current diagnosis they agreed to meet with hospice and agree to have him transferred to hospice care on 08/22/2024. Time spent on patient discharge was over 35 minutes. Patient Condition at Discharge: Stable Plan - Discharge Summary New Discharge Prescriptions: New Aspirin 81 mg PO DAILY tab Tamsulosin [Flomax] 0.4 mg PO PC-BRKFST #30 cap Metoprolol Tartrate [Lopressor] 25 mg PO BID #60 tab Pantoprazole [Protonix] 40 mg PO AC-BRKFST #30 tab hydrALAZINE HCL [Apresoline] 25 mg PO QID PRN #60 tab PRN Reason: Blood Pressure - High Nystatin 100,000 Unit/gm Powd [Mycostatin Powder] 1 applic TOPICAL BID #60 gm Continue Carboxymethylcellulose Sodium [Refresh Tears] 1 drop BOTH EYES Q2H PRN PRN Reason: Dry Eye(S) Furosemide [Lasix] 40 mg PO WE Cetirizine HCl [Zyrtec] 10 mg PO DAILY PRN PRN Reason: Allergy Symptoms amLODIPine BESYLATE/BENAZEPRIL [Lotrel 10-40 mg Capsule] 1 cap PO DAILY Dapagliflozin Propanediol [Farxiga] 10 mg PO DAILY Atorvastatin [Lipitor] 40 mg PO DAILY Latanoprost [Latanoprost 0.005%] 1 drop LEFT EYE HS allopurinoL [Zyloprim] 100 mg PO DAILY Repaglinide [Prandin] 1 mg PO AC-BRKFST Fenofibrate Nanocrystallized [Fenofibrate] 145 mg PO DAILY Insulin Glargine,Hum.rec.anlog [Toujeo Solostar] 35 units SQ DAILY Discharge Medication List Atorvastatin [Lipitor] 40 mg PO DAILY 08/16/24 [History] Carboxymethylcellulose Sodium [Refresh Tears] 1 drop BOTH EYES Q2H PRN 08/16/24 [History] Cetirizine HCl [Zyrtec] 10 mg PO DAILY PRN 08/16/24 [History] Dapagliflozin Propanediol [Farxiga] 10 mg PO DAILY 08/16/24 [History] Fenofibrate Nanocrystallized [Fenofibrate] 145 mg PO DAILY 08/16/24 [History] Furosemide [Lasix] 40 mg PO WE 08/16/24 [History] Insulin Glargine,Hum.rec.anlog [Toujeo Solostar] 35 units SQ DAILY 08/16/24 [History] Latanoprost [Latanoprost 0.005%] 1 drop LEFT EYE HS 08/16/24 [History] Repaglinide [Prandin] 1 mg PO AC-BRKFST 08/16/24 [History] allopurinoL [Zyloprim] 100 mg PO DAILY 08/16/24 [History] amLODIPine BESYLATE/BENAZEPRIL [Lotrel 10-40 mg Capsule] 1 cap PO DAILY 08/16/24 [History] Aspirin 81 mg PO DAILY tab 10/16/24 [Rx] Metoprolol Tartrate [Lopressor] 25 mg PO BID #60 tab 08/22/24 [Rx] Nystatin 100,000 Unit/gm Powd [Mycostatin Powder] 1 applic TOPICAL BID #60 gm 08/22/24 [Rx] Pantoprazole [Protonix] 40 mg PO AC-BRKFST #30 tab 08/22/24 [Rx] Tamsulosin [Flomax] 0.4 mg PO PC-BRKFST #30 cap 08/22/24 [Rx] hydrALAZINE HCL [Apresoline] 25 mg PO QID PRN #60 tab 08/22/24 [Rx] Follow up Appointment(s)/Referral(s): Major Sanchez MD [Primary Care Provider] - 1-2 days (Patient instructed to follow- up with Dr. Sanchez as needed) Patient Instructions/Handouts: Metoprolol (By mouth), Nystatin (On the skin), Hydralazine (By mouth), Tamsulosin (By mouth), Pantoprazole (By mouth), Hospice (DC) Discharge Disposition: HOME WITH HOSPICE
== END 2024-08-22 19:13 | disposition hospice, home (50) | DRG 682 ==
LOC: EC 15:37 → 5NMEDONC 20:03
PROVIDERS: ADMIT Internal Medicine Geriatric Medicine; ATTEND Internal Medicine Geriatric Medicine
DX: N17.9 Acute kidney failure, unspecified (principal); I21.A1 Myocardial infarction type 2; C34.90 Malignant neoplasm of unspecified part of unspecified bronchus or lung; C64.9 Malignant neoplasm of unspecified kidney, except renal pelvis; E87.20 Acidosis, unspecified; I50.32 Chronic diastolic (congestive) heart failure; J44.0 Chronic obstructive pulmonary disease with (acute) lower respiratory infection; C78.01 Secondary malignant neoplasm of right lung; I13.0 Hypertensive heart and chronic kidney disease with heart failure and stage 1 through stage 4 chronic kidney disease, or unspecified chronic kidney disease; I47.20 Ventricular tachycardia, unspecified; E11.9 Type 2 diabetes mellitus without complications; E78.5 Hyperlipidemia, unspecified; I10 Essential (primary) hypertension; T79.6XXA Traumatic ischemia of muscle, initial encounter; E11.22 Type 2 diabetes mellitus with diabetic chronic kidney disease; E86.0 Dehydration; N17.0 Acute kidney failure with tubular necrosis; N18.4 Chronic kidney disease, stage 4 (severe); D64.9 Anemia, unspecified; D69.59 Other secondary thrombocytopenia; E77.8 Other disorders of glycoprotein metabolism; R33.8 Other retention of urine; N40.0 Benign prostatic hyperplasia without lower urinary tract symptoms; R13.10 Dysphagia, unspecified; W01.0XXA Fall on same level from slipping, tripping and stumbling without subsequent striking against object, initial encounter; Y92.009 Unspecified place in unspecified non-institutional (private) residence as the place of occurrence of the external cause; Z51.5 Encounter for palliative care; Z66 Do not resuscitate; Z74.01 Bed confinement status; Z79.84 Long term (current) use of oral hypoglycemic drugs; Z79.899 Other long term (current) drug therapy; Z85.118 Personal history of other malignant neoplasm of bronchus and lung; Z85.528 Personal history of other malignant neoplasm of kidney; Z85.828 Personal history of other malignant neoplasm of skin; Z86.711 Personal history of pulmonary embolism; Z86.718 Personal history of other venous thrombosis and embolism; M10.9 Gout, unspecified; Z90.5 Acquired absence of kidney; Z92.21 Personal history of antineoplastic chemotherapy; Z95.828 Presence of other vascular implants and grafts
CPT/HCPCS: 36415; 70450; 71046; 72170; 74176; 76770; 80048; 80053; 81001; 82550; 82552; 83605; 83735; 83880; 84145; 84484; 85025; 85027; 87040; 87086; 87324; 87636; 93005; 93306; 94760; 96360; 96361; 99285